=== PATIENT | female | born 1955 | race Caucasian/White ===

== ENCOUNTER → 2017-12-09 16:19 | Outpatient (CLI) | payer OTHER, SELFPAY ==
--- NOTE | 2017-12-09 16:23 | BI_ITS ---
MAMMOGRAPHY - BILATERAL SCREENING REASON FOR EXAM: Female, 62 years old. Routine annual screening examination. PERTINENT HISTORY: Non-contributory. TECHNIQUE: Digital bilateral breast ca (3D mammographic acquisition) in the CC and MLO projections. 2-D mediolateral oblique (MLO) and craniocaudad (CC) views of both breasts were obtained. CAD: Full Field Digital Mammography with Computer Added Detection was performed. COMPARISON: Comparison is made with prior study dated October 15, 2016 and September 07, 2015. FINDINGS: Breast Composition: The breasts are heterogeneously dense, which may obscure small masses. There are no dominant masses or suspicious calcifications. Stable appearance of the benign-appearing axillary lymph nodes. No other significant abnormalities are identified. There has been no significant change since the prior study. BI/SCREENING MAMM (CAD), BILAT IMPRESSION: Stable bilateral screening mammogram. Yearly follow-up mammogram recommended. (A) ASSESSMENT CATEGORY: BIRADS Category 2: Benign. A letter regarding these results will be sent to the patient by the facility within 30 days. Approximately 10% of breast cancers are not detected by mammography. A normal mammogram should not delay biopsy of a clinically suspicious abnormality. [id number] Electronically Signed: David Snyder MD at 8:51 EDT Tel [phone], Service support ,
== END ==
PROVIDERS: Family Provider Family Medicine; PCP Family Medicine; Visit Provider Family Medicine
DX: Z12.31 Encounter for screening mammogram for malignant neoplasm of breast (principal)
CPT/HCPCS: 77063; 77067

== ENCOUNTER → 2018-02-09 10:56 | Outpatient (CLI) | payer OTHER, SELFPAY ==
[2018-02-09 12:02] LABS: Absolute Lymphocyte Count 2.16 X10^3/ul (0.83-4.51); Basophil# 0.02 X10^3/uL; Basophil% 0.3 % (0-1); Eosinophil# 0.03 X10^3/uL; Eosinophils% 0.4 % (0-5); Hematocrit 42.4 % (37-47); Hemoglobin 14.4 g/dl (12.0-15.0); Lymphocyte # 2.16 X10^3/ul (4.0); Lymphocyte % 28.3 % (19-41); Mean Corpuscular Hgb 29.3 pg (27.0-32.0); Mean Corpuscular Volume 86.2 fL (81-99); Mean Platelet Vol. 9.6 fl (6.2-12.0); Monocyte# 0.47 X10^3/uL; Monocyte% 6.2 % (0-10); Neutrophil # 4.95 X10^3/uL (2.7-7.7); Neutrophil % 64.7 % (47-70); Platelet Count 288 K/mm3 (150-450); RBC Distribution Width CV 12.6 % (11.6-14.6); RBC Distribution Width SD 40.1 fl (35.1-43.9); Red Blood Count 4.92 M/mm3 (4.2-5.4); White Blood Count 7.6 K/mm3 (4.4-11.0)
[2018-02-09 12:03] LABS: POSITIVE COUNT NO; POSITIVE DIFFERENTIAL NO; POSITIVE MORPHOLOGY NO
[2018-02-09 12:36] LABS: ALB/GLOB Ratio 1.3 RATIO (0.9-2.4); AST(SGOT) 12 U/L (15-37); Alanine Aminotransfer ALT/SGPT 22 U/L (13-56); Albumin, Serum 4.3 g/dL (3.2-5.0); Alkaline Phosphatase 58 U/L (45-117); Anion Gap 9 (5-15); BUN 11 mg/dL (7-18); BUN/Creat Ratio 15.5 RATIO (10-20); Calcium,Total 9.8 mg/dL (8.5-10.1); Chloride 105 mmol/L (98-107); Creatinine, Serum 0.71 mg/dL (0.55-1.02); EST Glomerular Filtration Rate 88 mL/min (>60); Est Glom Filt Rate - Afr Amer 106 mL/min (>60); Globulin 3.4 g/dL (2.2-4.2); Glucose 100 mg/dL (74-106); Potassium 3.8 mmol/L (3.5-5.1); Protein, Total 7.7 g/dL (6.4-8.2); Sodium Level 140 mmol/L (136-145); Thyroid Stim Hormone (TSH) 0.88 uIU/mL (0.358-3.74)
== END ==
PROVIDERS: Family Provider Family Medicine; PCP Family Medicine; Visit Provider Family Medicine
DX: R00.2 Palpitations (principal)
CPT/HCPCS: 36415; 80053; 84443; 85025

== ENCOUNTER → 2018-04-07 09:44 | Outpatient (CLI) | payer OTHER, SELFPAY ==
--- NOTE | 2018-04-07 09:49 | ECHOD_ITS ---
Reason For Study: PALPITATIONS Procedure This was a 2D Doppler, Color Flow transthoracic echocardiogram. Exam performed in department. Left Ventricle Normal LV size. Left ventricular systolic function is normal. The estimated ejection fraction is 60 %. No evidence for diastolic dysfunction. No regional wall motion abnormalities noted. Right Ventricle Normal RV size. Normal systolic function. Atria Normal left atrium. Normal right atrium. No doppler evidence for ASD. Mitral Valve There is no mitral annular calcification. Normal mitral valve. Trivial mitral valve insufficiency. Tricuspid Valve Normal tricuspid valve. Trivial tricuspid valve insufficiency. Right ventricular systolic pressure estimated to be 24 mmHg. Aortic Valve Trisinus/trileaflet aortic valve. Normal aortic valve. Pulmonic Valve The pulmonic valve is not well visualized. Trivial pulmonic valve insufficiency. Great Vessels Normal sized aortic root. Pericardium/Pleural No pericardial effusion. MMode/2D Measurements & Calculations LVIDd: 3.8 cm IVSd: 0.82 cm Ao root diam: 2.8 cm LVIDs: 2.6 cm LVPWd: 0.84 cm LA dimension: 2.4 cm RVDd: 2.2 cm FS: 31.8 % LAV(MOD-bp): 27.7 ml LA A4 area: 10.6 cm2 RA A4 area: 9.1 cm2 LAV(MOD-bp) Indexed: 17.4 ml/m2 LAV(MOD-sp2): 27.5 ml LAV(MOD-sp4): 23.2 ml Doppler Measurements & Calculations MV E max iam: 93.7 cm/sec Lat Peak E' Iam: 10.9 cm/sec Med Peak E' Iam: 12.3 cm/sec MV A max iam: 70.2 cm/sec E/E' lat: 8.6 E/E' med: 7.6 MV E/A: 1.3 Ao V2 max: 134.7 cm/sec LV V1 max: 105.0 cm/sec PA V2 max: 97.6 cm/sec Ao max P.3 mmHg LV V1 max P.4 mmHg TR max iam: 229.6 cm/sec TR max P.2 mmHg Interpretation Summary Left ventricular systolic function is normal. The estimated ejection fraction is 60 %. Trivial mitral valve insufficiency. Trivial tricuspid valve insufficiency. Trivial pulmonic valve insufficiency. Right ventricular systolic pressure estimated to be 24 mmHg. No evidence for diastolic dysfunction. Ordering Physician: David Lo Referring Physician: Joelle Krishnamurthy Performed By: Jeanna Garcia RDCS, RVT
--- NOTE | 2018-04-07 09:49 | AAVD_ITS ---
Reason For Study: Pusatile abdomen Aorta Measurements Aorta Doppler Measurements Proximal aorta measures1.6 x 1.5cm. in cross- Peak systolic flow velocities within the proximal sectional axis. aorta measure 93.9 cm/sec. Proximal aorta measures1.4cm. in longitudinal Peak systolic flow velocities within the mid axis. aorta measure 102.0 cm/sec. Mid aorta measures1.2 x 1.3cm. in cross-sectionalPeak systolic flow velocities within the distal axis. aorta measure 85.7 cm/sec. Mid aorta measures1.3cm. in longitudinal axis. Distal aorta measures1.3 x 1.4cm. in cross- sectional axis. Distal aorta measures1.3cm. in longitudinal axis. Left Iliac Artery Left iliac artery measures .85 cm. in the longitudinal axis. Left iliac artery measures .85 x .83 cm. in the cross-sectional axis. Peak systolic velocity in the left iliac artery measures 116.0 cm/sec. Right Iliac Artery Right iliac artery measures .81 cm. in the longitudinal axis. Right iliac artery measures .86 x .86 cm. in the cross-sectional axis. Peak systolic velocity in the right iliac artery measures 107.0 cm/sec. Procedure Aorta IVC Iliac vasculature or bypass grafts [id number]. Exam performed in department. Interpretation Summary The dimensions of the intra-abdominal aorta appear normal, without evidence of aneurysmal dilatation. The iliac arteries also appear normal in size bilaterally. The intra-abdominal aorta and iliac arteries are patent, demonstrating normal, pulsatile arterial flow and normal peak systolic velocities. Ordering Physician: David Lo Referring Physician: David Lo Performed By: Mara Wilson RVT
--- NOTE | 2018-04-07 17:17 | STRESSREP ---
Stress Test Report Date: 04/07/2018 Procedure: Exercise tolerance test Indications: Palpitations; SVT; RFA; chest pain Consent: Per the patient Procedure: The patient exercised on a [place] protocol for 8 minutes completing Stage II and 2 minutes of Stage III achieving a peak heart rate of 173 bpm (111 % predicted maximal heart rate) with a peak blood pressure 174/76 mmHg and a peak MET capacity of approximately 9 MET's. The baseline ECG demonstrated normal sinus rhythm; PVCs. The peak exercise ECG demonstrated no obvious ECG changes. There were occasional PVCs pretest, during exercise, and recovery. The functional capacity was considered good. The patient had no complaint of chest discomfort during exercise or recovery. The examination was discontinued secondary to dyspnea. Impression: 1. Technically adequate (percent predicted maximal heart rate greater than 85%) exercise tolerance test 2. Peak exercise ECG with no obvious ECG changes 3. There were occasional PVCs pretest, during exercise, and recovery This note was generated with [employer] software. It may contain incorrect words, spelling, and punctuation that were not noted in checking the note before signing.
== END ==
PROVIDERS: Family Provider Family Medicine; PCP Family Medicine; Referring Provider Internal Medicine Cardiovascular Disease; Visit Provider Internal Medicine Cardiovascular Disease
DX: R00.2 Palpitations (principal); I49.3 Ventricular premature depolarization; I47.1 Supraventricular tachycardia; R19.8 Other specified symptoms and signs involving the digestive system and abdomen
CPT/HCPCS: 93017; 93306; 93978

== ENCOUNTER → 2018-07-21 09:40 | Outpatient (CLI) | payer MEDICARE, SELFPAY ==
[2018-07-16 10:35] VITALS: BMI 18.1
[2018-07-21 11:09] LABS: AST(SGOT) 16 U/L (15-37); Alanine Aminotransfer ALT/SGPT 23 U/L (13-56); Albumin, Serum 3.9 g/dL (3.2-5.0); Alkaline Phosphatase 64 U/L (45-117); Bilirubin, Direct 0.12 mg/dL (0.00-0.30); Cholesterol 229 mg/dL (200); Globulin 3.3 g/dL (2.2-4.2); High Density Lipoprotein 57 mg/dL; Protein, Total 7.2 g/dL (6.4-8.2); Triglycerides 115 mg/dL; Very Low Density Lipoprotein 23 mg/dL (5-40)
== END ==
PROVIDERS: Family Provider Family Medicine; PCP Family Medicine; Referring Provider Internal Medicine Cardiovascular Disease; Visit Provider Internal Medicine Cardiovascular Disease
DX: E78.5 Hyperlipidemia, unspecified (principal)
CPT/HCPCS: 36415; 80061; 80076

== ENCOUNTER 2018-12-01 09:00 | Outpatient (RCR) | payer MEDICARE, SELFPAY ==
[2018-07-16 10:35] VITALS: BMI 18.1
--- NOTE | 2018-11-18 15:25 | HP.PTEVAL_ITS ---
Patient's Visit Information DEE BRUNSON is a 63 year old F referred to Physical Therapy by LADI MARTIN with a diagnosis of L1 COMPRESSION FX. Date of Evaluation: 11/18/18 Physical Therapist: Arelis Rankin, PT, Cert MDT - Visit Plan Frequency: 2-3x /Week Duration: 4-6 Weeks Plan: POSTURE CORRECTION/STRENGTHENING, INSTRUCTION IN APPROPRIATE BODY MECHANICS AND ACTIVITY MODIFICATIONS. DLS STARTING WITH A NEUTRAL SPINE PROGRESSING ROM TOLERATED. PERLITA LE ROM, STRETCHING AND STRENGTHENING. HEP INSTRUCTION. *NO LIFTING > 5 LBS, BENDING, PUSHING, PULLING, TWISTING AND OVER HEAD EXTENSION UNTIL OK'D BY PHYSICIAN AND/OR SUPERVISING PT. 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 Disability: NO. Present sym ptoms: INTERMITTENT UPPER LUMBAR ACHING. PATIENT DENIES PERLITA UE AND LE NUMBNESS AND TINGLING. Present since: 11/14/18. Pain Scale: WORST 6/10, LEAST 0/10. Currently: 06/25. Commenced as a result of: LUNGED TO CATCH W/C WITH DAD IN IT AND FELT PAIN IN BACK. Symptoms at onset: BACK. Worse: BENDING, TWISTING, LYING DOWN IN BED. Better: HEAT, CHANGE OF POSITION. Disturbed sleep: YES. SLEEPING IN RECLINER. BED SEEMS TO SOFT. Previous history/Previous treatment: UNREMARKABLE. Coughing/sneezing/straining: POSITIVE. Gait: NORMAL. Difficulty initiating urinatin: NO. Accidents: NO. Unexplained weight loss: NO. Imaging: MRI - COMPRESSION FX L1 AND SOME ARTHRITIS. 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 PMH: CURRENTLY UNDER CARE BY GYNOCOLOGIST AND SURGERY IS TENTATIVELY SCHEDULED November TO HAVE OVERIES REMOVED BUT THIS COULD CHANGE TEST RESULTS ARE COMING IN. IRREGULAR HEART BEAT. OSTEOPOROSIS. Recent major surgery: NO. PLOF (Prior Level of Function): UNLIMITED. OTHER: SAW DR. FIGUEREDO IN [facility] AND IS SCHEDULED TO FOLLOW UP WITH HIM NEXT FRIDAY. STATES DR. FIGUEREDO GAVE HER THE CHOICE OF HAVING KYPHOPLASTY OR REST & THERAPY. SHE CHOSE THE LATTER. PHYSICAL THERAPY AT [facility] - CHECKED MOBILITY AND ISSUED BRACE. NO HOME EX'S GIVEN. - Objective Sitting/Standing Posture: FORWARD HEAD, ROUNDED SHOULDERS, INCREASED KYPHOSIS. NO TORTICOLLIS OR RELEVENT LATERAL SHIFT. Lordosis: REDUCED. Active Correction of posture: NE. Other Observations: INDEP GAIT AND TRANSFERS. PATIENT OBSERVED BENDING AND TWISTING ON THE WAY BACK TO TREATMENT ROOM AND DURING SUBJECTIVE EVAL. Motor deficit: PERLITA LE'S 4-5 WITH MMT'ING BUT I PROCEEDED CAREFULLY WITH TESTING. Sensory deficit: NO. ROM deficit: PERLITA LE'S WFL. Reflexes: GOOD - 2/3 PERLITA LE'S. Dural Signs: POSITIVE PERLITA LE'S. Lumbar mvmt loss: NT. Core strength: POOR. Palpation: TENDERNESS OF UPPER LUMBAR SPINE REGION WITH LIGHT PALPATION. BRACE - PATIENTS BACK BRACE IS SNUG AND THIS PT ADVISED ASKING SOURCE FOR LARGER ONE. PATIENT AGREEABLE. - Goals Goal 1:: DECREASE C/O BACK PAIN Goal Time Frame: 4-6 Weeks Goal 2:: IMPROVE LIFTING, SITTING, STANDING, SLEEP, AND HOMEMAKING FUNCTION Goal Time Frame: 4-6 Weeks Goal 3:: INSTRUCT IN PROPHYLAXIS Goal Time Frame: 4-6 Weeks - Rehabilitation Potential Rehabilitation Potential: Fair - Anticipated Interventions Patient/Client Instruction: Educate patient on: Condition, Plan of Care, Risk Factors, Benefits of Fitness Program For the Purpose of:: To improve self management Therapeutic Exercise to Include: Strength training, Body mechanics, Postural training, Flexibilty training, Active ROM, Scapular Strength/Stabilization For the Purpose of:: To decrease pain, To increase ROM, To improve muscle performance and motor function, To increase tolerance to activity/condition/position, To improve ability of physical actions for home/community/work/leisure Thank you for the opportunity to evaluate your patient. For Medicare and Medicare HMO plans, please review the plan of care and approve it. It will need to be FAXED BACK to us at [phone] for Medicare purposes. For Medicare only, by signing this I certify the plan of care. Please let me know if there are questions or concerns regarding this plan of care. Physician Signature: Date:
--- NOTE | 2019-01-19 14:15 | HP.PT.NRP ---
HP - Discharge Summary (1) - Patient Information DEE BRUNSON was seen in my office for initial evaluation on 11/18/18. The following Plan of Care was established for this patient: Initial Frequency: 2-3x /Week Initial Duration: 4-6 Weeks - Anticipated Interventions Patient/Client Instruction: Educate patient on: Condition, Plan of Care, Risk Factors, Benefits of Fitness Program For the Purpose of:: To improve self management Therapeutic Exercise to Include: Strength training, Body mechanics, Postural training, Flexibilty training, Active ROM, Scapular Strength/Stabilization For the Purpose of:: To decrease pain, To increase ROM, To improve muscle performance and motor function, To increase tolerance to activity/condition/position, To improve ability of physical actions for home/community/work/leisure This patient was last seen in our office . Pertinent comments regarding their Physical therapy will appear below: This patient has not returned to Physical Therapy and is appropriate to return to MD for further follow-up as needed. At this point I will be discontinuing this patient from physical therapy. I would be happy to see this patient again in the future if found appropriate by the physician. Thank you! Arelis Rankin, PT, Cert MDT
== END 2018-12-01 19:00 | disposition home or self-care (01) ==
LOC: PT 09:00
PROVIDERS: Family Provider Family Medicine; PCP Family Medicine
DX: M54.9 Dorsalgia, unspecified (principal)
CPT/HCPCS: 97110; 97162; 97530

== ENCOUNTER → 2019-01-05 | Outpatient (CLI) | payer MEDICARE, SELFPAY ==
[2018-07-16 10:35] VITALS: BMI 18.1
[2019-01-05 10:15] LABS: AST(SGOT) 16 U/L (15-37); Alanine Aminotransfer ALT/SGPT 22 U/L (13-56); Albumin, Serum 3.8 g/dL (3.2-5.0); Alkaline Phosphatase 57 U/L (45-117); Bilirubin, Direct 0.08 mg/dL (0.00-0.30); Cholesterol 229 mg/dL (200); Globulin 3.1 g/dL (2.2-4.2); High Density Lipoprotein 68 mg/dL; Protein, Total 6.9 g/dL (6.4-8.2); Triglycerides 69 mg/dL; Very Low Density Lipoprotein 14 mg/dL (5-40)
--- NOTE | 2019-01-05 11:51 | BI_ITS ---
MAMMOGRAPHY - BILATERAL SCREENING 3-D TOMOSYNTHESIS REASON FOR EXAM: Female, 64 years old. Bilateral Screening 3-D tomosynthesis PERTINENT HISTORY: No significant family history. TECHNIQUE: 2-D mammograms and 3-D Tomosynthesis of the breast (s) were performed. CAD was performed. COMPARISON: 12/09/2017 FINDINGS: The breast composition is composed of scattered fibroglandular density. Scattered benign calcifications are seen. No dense spiculated masses or suspicious microcalcifications are identified. No architectural distortion is identified. There is no skin thickening or retraction. There has been no significant change since the prior study. BI/SCREEN MAMM (CAD) W/DAVIAN BILAT IMPRESSION: No mammographic signs of malignancy. Routine yearly mammograms recommended. ASSESSMENT CATEGORY: BIRADS Category 1: Negative. A letter regarding these results will be sent to the patient by the facility within 30 days. FOLLOW UP RECOMMENDATION: Yearly follow up mammogram recommended. (A) Approximately 10% of breast cancers are not detected by mammography. A normal mammogram should not delay biopsy of a clinically suspicious abnormality. Electronically Signed: Tyler Love MD at 12:59 EDT , Service support ,
== END | disposition home or self-care (01) ==
LOC: OPBI 11:50
PROVIDERS: Internal Medicine Cardiovascular Disease; Family Provider Family Medicine; PCP Family Medicine; Referring Provider Family Medicine; Visit Provider Family Medicine
DX: Z12.31 Encounter for screening mammogram for malignant neoplasm of breast (principal); E78.5 Hyperlipidemia, unspecified
CPT/HCPCS: 36415; 77063; 77067; 80061; 80076

== ENCOUNTER 2019-02-18 09:30 | Outpatient (RCR) | payer MEDICARE, SELFPAY ==
[2019-01-12 09:54] VITALS: BMI 17.6
--- NOTE | 2019-01-29 13:20 | HP.PTEVAL_ITS ---
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 Date of Evaluation: 01/29/19 Physical Therapist: Navneet Umana, PT, Cert MDT, OCS - Visit Plan Frequency: 2x /Week Duration: 4 Weeks Plan: COMPRESSION FX L1,PATEINT HAS OSTEOPROSIS. PT INTERVENTIONS POSTUREAL EX'S,LE FLEXABLITY,DLS ABD/BACK, LE PRE'S,MOADLTIES PRN - Subjective Findings: This 84 y/o female presents to physical therapy low back pain. Patient injuried low back November 14 ,pulling w/c up ramp flexed foward felt immediate pain ,felt pop. Patient wnt to [facility] MRI showed comptresion fracture L1.Patient had osteroprosis ,thus started taking boniva. Patient was in PT for couple session ,but d/c PT to ovary surgey December 11. Patient able to reume PT. Located symmtrical lumbar . Dercibed ache/stiffness occasional stabbing pain. Aggraveting factors sitting or driving,bending ,lifting. Alleviating heat,resting. Pateint sleeping good. Denies parathesia/tingling. Bowel/bladder-. Coughing/sneeezing -.Patient pain affects ADL'S and housework . Paient symptosm affects QOL and function ,taking care of childern. SOCIAL: . VOCATION: retired - Pain Bilateral Back Pain Intensity (Out of 10): 1 Pain Intensity Range: 10 Comment: stiffness - Objective POSTURE: flat lumbar spine. PALPATION: tender paraspinals. GAIT: reciprocal pattern mild foward. NEURO: denies parathesia/tingling ,reflexes 2/3,L3-4,L4-5,L5-S1. MMT:quads/hams 4/5,hip flexion 4-/5 ,ankle 5/5. LUMBAR ROM: flexion mod loss,extension min/mod loss,side glides min loss. FLEXABLITRY: hams min tight - Special Tests L/S Slump test left side: Negative L/S Slump test right side: Negative L/S Left Straight Leg Raise: Negative L/S Right Straight Leg Raise: Negative - Goals Goal 1:: Independant with HEP Goal Time Frame: 4-6 Weeks Goal 2:: Pateint improve posture for ADL'S. Goal Time Frame: 4-6 Weeks Goal 3:: Patient to decrease LBP by 50 % > to improve function with ADL'S. Goal Time Frame: 4-6 Weeks Goal 4:: Patient to improve lumbar ROM for function of recovery Goal Time Frame: 4-6 Weeks Goal 5:: Patient to improve back owestry score by 5 points > to improve function of recovery. Goal Time Frame: 4-6 Weeks - Rehabilitation Potential Physical Therapy Diagnosis: This patient had compression fc L1 IN NOVEMBER pulling father w/c acccidently fell foward ,thus has ROM loss,strength deficits,impairs funtion and ADL'S Rehabilitation Potential: Good - Anticipated Interventions Patient/Client Instruction: Educate patient on: Condition, Plan of Care For the Purpose of:: To decrease pain, To increase ROM, To improve muscle performance and motor function, To increase tolerance to act ivity/condition/position, To improve ability of physical actions for home/community/work/leisure, To increase flexibility/ROM, To reduce risk of recurrence, To improve ability to perform tasks related to life management Therapeutic Exercise to Include: Strength training, Endurance training, Postural training, Flexibilty training, Dynamic Lumbar Stabilization For the Purpose of:: To decrease pain, To increase ROM, To improve muscle performance and motor function, To increase tolerance to activity/condition/position, To improve ability of physical actions for home/community/work/leisure, To increase flexibility/ROM, To improve ability to perform tasks related to life management TENS: Yes IF ES: Yes Cryotherapy (ice pack, ice massage): Yes Thermo therapy (hot pack): Yes For the Purpose of:: To decrease pain, To improve nutrient delivery to tissue, To increase oxygenation perfusion, To improve muscle performance and motor function, To improve health of tissue, To decrease soft tissue restriction Thank you for the opportunity to evaluate your patient. For Medicare and Medicare HMO plans, please review the plan of care and approve it. It will need to be FAXED BACK to us at [phone] for Medicare purposes. For Medicare only, by signing this I certify the plan of care. Please let me know if there are questions or concerns regarding this plan of care. Physician Signature: Date:
--- NOTE | 2019-02-18 10:02 | HP.PTDCSUM ---
HP - PT D/C Summary It has been my pleasure to treat DEE BRUNSON under orders from MEEK FIGUEREDO, for the diagnosis of AGE RELATED OSTEOPROSIS WITH PATHOLOGICAL FRACTURE VERTEBRAE,LPB for a total of 5 visit(s). Discharge Date: 02/18/19 Please see the following information for a summary of their discharge status. - Subjective Subjective: Internittant symptoms in LB. Patient playing with kids - Pain Bilateral Back Pain Intensity (Out of 10): 3 - Overall Improvement % Improvement: 50 - Objective Objective/Function: POSTURE: mild thoracic kyphosis. GAIT: reciprocal pattern. MMT: quads/hams/hip 4/5,ankle 4/5. LUMBAR ROM: flexion min loss,extension mod loss - Goals Goal 1:: Independant with HEP Goal Progress: Goal Met Goal 2:: Pateint improve posture for ADL'S. Goal Progress: Goal Met Goal 3:: Patient to decrease LBP by 50 % > to improve function with ADL'S. Goal Progress: Progressing Goal 4:: Patient to improve lumbar ROM for function of recovery Goal Progress: Progressing Goal 5:: Patient to improve back owestry score by 5 points > to improve function of recovery. Goal Progress: Goal Met - Plan Plan: D/C TO GYM AND HEP - D/C Information Discharge Comments: hep If there are questions or concerns regarding this patient's physical therapy, please feel free to call me at [phone]. Thank you for the referral of this patient. Sincerely, Navneet Umana, PT, Cert MDT, OCS
== END 2019-02-18 19:00 | disposition home or self-care (01) ==
LOC: PT 09:30
PROVIDERS: Family Provider Family Medicine; PCP Family Medicine
DX: M80.08XD Age-related osteoporosis with current pathological fracture, vertebra(e), subsequent encounter for fracture with routine healing (principal); M54.5 Low back pain
CPT/HCPCS: 97110; 97162

== ENCOUNTER → 2019-03-08 07:32 | Outpatient (CLI) | payer MEDICARE, SELFPAY ==
[2019-01-12 09:54] VITALS: BMI 17.6
[2019-03-08 09:21] LABS: AST(SGOT) 16 U/L (15-37); Alanine Aminotransfer ALT/SGPT 28 U/L (13-56); Albumin, Serum 3.9 g/dL (3.2-5.0); Alkaline Phosphatase 55 U/L (45-117); Bilirubin, Direct 0.11 mg/dL (0.00-0.30); Cholesterol 168 mg/dL (200); Globulin 3.3 g/dL (2.2-4.2); High Density Lipoprotein 70 mg/dL; Protein, Total 7.2 g/dL (6.4-8.2); Triglycerides 74 mg/dL; Very Low Density Lipoprotein 15 mg/dL (5-40)
== END ==
PROVIDERS: Family Provider Family Medicine; PCP Family Medicine; Referring Provider Physician Assistant Medical; Visit Provider Physician Assistant Medical
DX: E78.2 Mixed hyperlipidemia (principal)
CPT/HCPCS: 36415; 80061; 80076

== ENCOUNTER → 2019-06-03 08:56 | Outpatient (CLI) | payer MEDICARE, SELFPAY ==
[2019-05-31 10:49] VITALS: BMI 18.1
== END ==
PROVIDERS: Family Provider Family Medicine; PCP Family Medicine; Referring Provider Nurse Practitioner Family; Visit Provider Nurse Practitioner Family
DX: I47.1 Supraventricular tachycardia (principal); I49.3 Ventricular premature depolarization
CPT/HCPCS: 93225; 93226

== ENCOUNTER → 2020-02-02 11:01 | Outpatient (CLI) | payer MEDICARE, SELFPAY ==
[2020-01-10 10:52] VITALS: BMI 19.3
[2020-02-02 13:08] LABS: AST(SGOT) 16 U/L (15-37); Alanine Aminotransfer ALT/SGPT 25 U/L (13-56); Cholesterol 167 mg/dL (200); High Density Lipoprotein 67 mg/dL; Triglycerides 101 mg/dL; Very Low Density Lipoprotein 20 mg/dL (5-40)
== END ==
PROVIDERS: PCP Family Medicine; Referring Provider Family Medicine; Visit Provider Family Medicine
DX: E78.5 Hyperlipidemia, unspecified (principal)
CPT/HCPCS: 36415; 80061; 84450; 84460

== ENCOUNTER → 2020-02-02 13:57 | Outpatient (CLI) | payer MEDICARE, SELFPAY ==
[2020-01-10 10:52] VITALS: BMI 19.3
--- NOTE | 2020-02-02 13:59 | BI_ITS ---
MAMMOGRAPHY - BILATERAL SCREENING 3-D TOMOSYNTHESIS REASON FOR EXAM: Female, 65 years old. Annual screening mammogram. PERTINENT HISTORY: No pertinent family history. TECHNIQUE: 2-D mammograms and 3-D Tomosynthesis of the breast (s) were performed. CAD was performed. COMPARISON: 01/05/2019, 12/09/2017 FINDINGS: The breast composition is composed of scattered fibroglandular density. Scattered benign calcifications are seen. No dense spiculated masses or suspicious microcalcifications are identified. No architectural distortion is identified. There is no skin thickening or retraction. There has been no significant change since the prior study. BI/SCREEN MAMM (CAD) W/DAVIAN BILAT IMPRESSION: No mammographic signs of malignancy. Routine yearly mammograms recommended. ASSESSMENT CATEGORY: BIRADS Category 1: Negative. A letter regarding these results will be sent to the patient by the facility within 30 days. FOLLOW UP RECOMMENDATION: Yearly follow up mammogram recommended. (A) Approximately 10% of breast cancers are not detected by mammography. A normal mammogram should not delay biopsy of a clinically suspicious abnormality. Electronically Signed: Ernesto Wills MD at 17:36 EDT , Service support ,
== END ==
PROVIDERS: PCP Family Medicine; Referring Provider Family Medicine; Visit Provider Family Medicine
DX: Z12.31 Encounter for screening mammogram for malignant neoplasm of breast (principal); E78.5 Hyperlipidemia, unspecified
CPT/HCPCS: 36415; 77063; 77067; 80061; 84450; 84460

== ENCOUNTER → 2021-01-16 08:27 | Outpatient (CLI) | payer MEDICARE, SELFPAY ==
[2021-01-08 10:29] VITALS: BMI 18.3
[2021-01-16 10:11] LABS: ALB/GLOB Ratio 1.3 RATIO (0.9-2.4); AST(SGOT) 20 U/L (15-37); Alanine Aminotransfer ALT/SGPT 34 U/L (13-56); Albumin, Serum 4.2 g/dL (3.2-5.0); Alkaline Phosphatase 54 U/L (45-117); Anion Gap 3 (5-15); BUN 14 mg/dL (7-18); BUN/Creat Ratio 18.8 RATIO (10-20); Bilirubin, Direct 0.14 mg/dL (0.00-0.30); Calcium,Total 9.4 mg/dL (8.5-10.1); Chloride 106 mmol/L (98-107); Cholesterol 177 mg/dL (200); Creatinine, Serum 0.74 mg/dL (0.55-1.02); EST Glomerular Filtration Rate 83 mL/min (>60); Est Glom Filt Rate - Afr Amer 100 mL/min (>60); Globulin 3.3 g/dL (2.2-4.2); Glucose 92 mg/dL (74-106); High Density Lipoprotein 71 mg/dL; Potassium 3.8 mmol/L (3.5-5.1); Protein, Total 7.5 g/dL (6.4-8.2); Sodium Level 140 mmol/L (136-145); Triglycerides 72 mg/dL; Very Low Density Lipoprotein 14 mg/dL (5-40)
== END ==
PROVIDERS: Internal Medicine Cardiovascular Disease; PCP Family Medicine
DX: E78.00 Pure hypercholesterolemia, unspecified (principal); Z87.310 Personal history of (healed) osteoporosis fracture
CPT/HCPCS: 36415; 80053; 80061; 82248

== ENCOUNTER → 2021-04-09 13:30 | Outpatient (CLI) | payer MEDICARE, SELFPAY ==
--- NOTE | 2021-04-09 13:32 | BI_ITS ---
MAMMOGRAPHY - BILATERAL SCREENING REASON FOR EXAM: Female, 66 years old. Routine annual screening examination. PERTINENT HISTORY: Non-contributory. TECHNIQUE: Digital bilateral breast ca (3D mammographic acquisition) in the CC and MLO projections. 2-D mediolateral oblique (MLO) and craniocaudad (CC) views of both breasts were obtained. CAD: Full Field Digital Mammography with Computer Added Detection was performed. COMPARISON: Comparison is made with prior study 02/02/2020 and 01/05/2019. FINDINGS: Breast Composition: There are scattered areas of fibroglandular density. There are no dominant masses or suspicious calcifications. Stable small benign appearing bilateral axillary lymph nodes. No other significant abnormalities are identified. There has been no significant change since the prior study. BI/SCREENING MAMM (CAD), BILAT IMPRESSION: Stable bilateral screening mammogram. Yearly follow-up mammogram recommended. (A) ASSESSMENT CATEGORY: BIRADS Category 2: Benign. A letter regarding these results will be sent to the patient by the facility within 30 days. Approximately 10% of breast cancers are not detected by mammography. A normal mammogram should not delay biopsy of a clinically suspicious abnormality. [id number] Electronically Signed: David Snyder MD at 13:21 EDT , Service support ,
== END ==
PROVIDERS: PCP Family Medicine; Referring Provider Family Medicine; Visit Provider Family Medicine
DX: Z12.31 Encounter for screening mammogram for malignant neoplasm of breast (principal)
CPT/HCPCS: 77067

== ENCOUNTER → 2022-01-11 | Outpatient (CLI) | payer MEDICARE, SELFPAY ==
[2022-01-11 10:53] LABS: AST(SGOT) 19 U/L (15-37); Alanine Aminotransfer ALT/SGPT 26 U/L (13-56); Albumin, Serum 3.8 g/dL (3.2-5.0); Alkaline Phosphatase 76 U/L (45-117); Bilirubin, Direct 0.14 mg/dL (0.00-0.30); Cholesterol 150 mg/dL (200); High Density Lipoprotein 65 mg/dL; Protein, Total 6.8 g/dL (6.4-8.2); Triglycerides 63 mg/dL; Very Low Density Lipoprotein 13 mg/dL (5-40)
== END | disposition home or self-care (01) ==
LOC: LAB 09:17
PROVIDERS: PCP Family Medicine; Referring Provider Internal Medicine Cardiovascular Disease; Visit Provider Internal Medicine Cardiovascular Disease
DX: E78.2 Mixed hyperlipidemia (principal)
CPT/HCPCS: 36415; 80061; 80076

== ENCOUNTER → 2022-05-13 | Outpatient (CLI) | payer MEDICARE, SELFPAY ==
--- NOTE | 2022-05-13 14:43 | BI_ITS ---
MAMMOGRAPHY - BILATERAL SCREENING REASON FOR EXAM: Female, 67 years old. Routine annual screening examination. PERTINENT HISTORY: Non-contributory. TECHNIQUE: Digital bilateral breast davian (3D mammographic acquisition) in the CC and MLO projections. 2-D mediolateral oblique (MLO) and craniocaudad (CC) views of both breasts were obtained. CAD: Full Field Digital Mammography with Computer Added Detection was performed. COMPARISON: Comparison is made with prior examination dated 04/11/2021 and 02/02/2020. FINDINGS: Breast Composition: The breasts are heterogeneously dense, which may obscure small masses. There are no dominant masses or suspicious calcifications. No other significant abnormalities are identified. There has been no significant change since the prior study. BI/SCRN MAMM (CAD)W/DAVIAN BILAT IMPRESSION: Stable bilateral screening mammogram. Yearly follow-up mammogram recommended. (A) ASSESSMENT CATEGORY: BIRADS Category 1: Negative. A letter regarding these results will be sent to the patient by the facility within 30 days. Approximately 10% of breast cancers are not detected by mammography. A normal mammogram should not delay biopsy of a clinically suspicious abnormality. [id number] Electronically Signed: David Snyder MD at 15:23 EST ,
== END | disposition home or self-care (01) ==
LOC: OPBI 14:42
PROVIDERS: PCP Family Medicine; Referring Provider Family Medicine; Visit Provider Family Medicine
DX: Z12.31 Encounter for screening mammogram for malignant neoplasm of breast (principal)
CPT/HCPCS: 77063; 77067

== ENCOUNTER → 2022-07-01 | Outpatient (CLI) | payer MEDICARE, SELFPAY ==
[2022-07-01 15:15] LABS: Absolute Lymphocyte Count 1.69 X10^3/uL (0.83-4.51); Absolute Neutrophil Count 4.7 X10^3/uL (2.0-7.7); Basophil# 0.03 X10^3/uL; Basophil% 0.4 % (0-1); Eosinophil# 0.02 X10^3/uL; Eosinophils% 0.3 % (0-5); Hematocrit 40.5 % (37-47); Hemoglobin 13.2 g/dL (12.0-15.0); Lymphocyte # 1.69 X10^3/ul (0.83-4.51); Lymphocyte % 24.9 % (19-41); Mean Corp Hgb Conc 32.6 g/dL (32-36); Mean Corpuscular Hgb 28.6 pg (27.0-32.0); Mean Corpuscular Volume 87.7 fL (81-99); Mean Platelet Vol. 9.7 fl (6.2-12.0); Monocyte# 0.35 X10^3/uL; Monocyte% 5.1 % (0-10); NRBC Flagged by Analyzer 0 % (0-5); Neutrophil # 4.69 X10^3/uL (2.7-7.7); Platelet Count 318 K/mm3 (150-450); RBC Distribution Width CV 12.3 % (11.6-14.6); RBC Distribution Width SD 39.4 fl (35.1-43.9); Red Blood Count 4.62 M/mm3 (4.2-5.4); White Blood Count 6.8 K/mm3 (4.4-11.0)
[2022-07-01 15:42] LABS: Anion Gap 11 (5-15); BUN 12 mg/dL (7-18); BUN/Creat Ratio 16.4 RATIO (10-20); Calcium,Total 9.4 mg/dL (8.5-10.1); Chloride 104 mmol/L (98-107); Creatinine, Serum 0.73 mg/dL (0.55-1.02); EST Glomerular Filtration Rate 84 mL/min (>60); Est Glom Filt Rate - Afr Amer 101 mL/min (>60); Glucose 97 mg/dL (74-106); Potassium 4.3 mmol/L (3.5-5.1); Sodium Level 141 mmol/L (136-145); Thyroid Stim Hormone (TSH) 1.27 uIU/mL (0.358-3.74)
== END | disposition home or self-care (01) ==
LOC: MFPLAB 11:57
PROVIDERS: PCP Family Medicine; Visit Provider Family Medicine
DX: R63.4 Abnormal weight loss (principal)
CPT/HCPCS: 36415; 80048; 84443; 85025

== ENCOUNTER → 2022-07-29 | Outpatient (CLI) | payer MEDICARE, SELFPAY ==
[2022-07-29 09:27] LABS: AST(SGOT) 15 U/L (15-37); Alanine Aminotransfer ALT/SGPT 21 U/L (13-56); Alkaline Phosphatase 66 U/L (45-117); Bilirubin, Direct 0.12 mg/dL (0.00-0.30); Cholesterol 158 mg/dL (200); Globulin 3.1 g/dL (2.2-4.2); High Density Lipoprotein 76 mg/dL; Protein, Total 7.1 g/dL (6.4-8.2); Triglycerides 64 mg/dL; Very Low Density Lipoprotein 13 mg/dL (5-40)
== END | disposition home or self-care (01) ==
LOC: LAB 08:19
PROVIDERS: PCP Family Medicine; Referring Provider Internal Medicine Cardiovascular Disease; Visit Provider Internal Medicine Cardiovascular Disease
DX: E78.2 Mixed hyperlipidemia (principal)
CPT/HCPCS: 36415; 80061; 80076

== ENCOUNTER → 2022-12-06 | Outpatient (CLI) | payer MEDICARE, SELFPAY ==
[2022-12-06 16:11] LABS: Vitamin D,25 Hydroxy 76.3 ng/mL
[2022-12-06 16:35] LABS: ALB/GLOB Ratio 1.3 RATIO (0.9-2.4); AST(SGOT) 17 U/L (15-37); Alanine Aminotransfer ALT/SGPT 25 U/L (13-56); Albumin, Serum 3.8 g/dL (3.2-5.0); Alkaline Phosphatase 70 U/L (45-117); Anion Gap 5 (5-15); BUN 17 mg/dL (7-18); BUN/Creat Ratio 23.4 RATIO (10-20); Calcium,Total 8.9 mg/dL (8.5-10.1); Chloride 109 mmol/L (98-107); Creatinine, Serum 0.73 mg/dL (0.55-1.02); EST Glomerular Filtration Rate 84 mL/min (>60); Est Glom Filt Rate - Afr Amer 102 mL/min (>60); Globulin 2.9 g/dL (2.2-4.2); Glucose 96 mg/dL (74-106); Potassium 3.9 mmol/L (3.5-5.1); Protein, Total 6.7 g/dL (6.4-8.2); Sodium Level 143 mmol/L (136-145)
== END | disposition home or self-care (01) ==
LOC: LAB 14:06
PROVIDERS: PCP Family Medicine; Referring Provider Internal Medicine Endocrinology, Diabetes & Metabolism; Visit Provider Internal Medicine Endocrinology, Diabetes & Metabolism
DX: E55.9 Vitamin D deficiency, unspecified (principal); M81.0 Age-related osteoporosis without current pathological fracture
CPT/HCPCS: 36415; 80053; 82306

== ENCOUNTER 2023-04-07 13:39 | Outpatient (CLI) | payer MEDICARE, SELFPAY ==
[2023-04-07 14:01] VITALS: BP 130/51; PULSE 73; RESP 16; TEMP 36.2; O2SAT 99; BMI 17.2
[2023-04-07] MEDS: DENOSUMAB 60 MG/ML SC (14:06)
== END 2023-04-07 13:40 | disposition home or self-care (01) ==
LOC: MEDOUTP 13:40
PROVIDERS: PCP Family Medicine; Referring Provider Internal Medicine Endocrinology, Diabetes & Metabolism; Visit Provider Internal Medicine Endocrinology, Diabetes & Metabolism
DX: M81.0 Age-related osteoporosis without current pathological fracture (principal)
CPT/HCPCS: 96372; J0897

== ENCOUNTER → 2023-05-01 | Outpatient (CLI) | payer MEDICARE, SELFPAY ==
[2023-05-01 08:45] LABS: AST(SGOT) 12 U/L (15-37); Alanine Aminotransfer ALT/SGPT 16 U/L (13-56); Albumin, Serum 3.6 g/dL (3.2-5.0); Alkaline Phosphatase 65 U/L (45-117); Bilirubin, Direct 0.11 mg/dL (0.00-0.30); Cholesterol 147 mg/dL (200); Globulin 3.2 g/dL (2.2-4.2); High Density Lipoprotein 68 mg/dL; Protein, Total 6.8 g/dL (6.4-8.2); Triglycerides 67 mg/dL; Very Low Density Lipoprotein 13 mg/dL (5-40)
== END | disposition home or self-care (01) ==
LOC: LAB 07:41
PROVIDERS: PCP Family Medicine; Referring Provider Nurse Practitioner Family; Visit Provider Nurse Practitioner Family
DX: E78.2 Mixed hyperlipidemia (principal)
CPT/HCPCS: 36415; 80061; 80076

== ENCOUNTER → 2023-05-26 | Outpatient (CLI) | payer MEDICARE, SELFPAY ==
--- NOTE | 2023-05-26 10:22 | RAD_ITS ---
STUDY: X-RAY CHEST REASON FOR EXAM: Female, 68 years old. Cough and left chest pain. TECHNIQUE: Frontal and lateral views of the chest. COMPARISON: None. FINDINGS: Marked hyperinflation. Scarring at the left base. Scattered healed parenchymal granulomatous calcifications. There is no demonstrated pleural abnormality. Normal size heart. Normal mediastinum and phillip. Normal visualized pulmonary arteries. Aortic tortuosity. Normal visualized thoracic spine. Normal visualized ribs, clavicles, and shoulders. No abnormality of the visualized soft tissue structures of the upper abdomen. RAD/Chest PA and Lateral IMPRESSION: Hyperinflation with no acute or active cardiopulmonary disease. Electronically Signed: Ernesto Wills MD at 12:43 EST ,
== END | disposition home or self-care (01) ==
LOC: MTRAD 10:20
PROVIDERS: PCP Family Medicine; Referring Provider Family Medicine; Visit Provider Family Medicine
DX: U07.1 COVID-19 (principal); R05.9 Cough, unspecified; R07.9 Chest pain, unspecified
CPT/HCPCS: 71046

== ENCOUNTER → 2023-06-23 | Outpatient (CLI) | payer MEDICARE, SELFPAY ==
--- NOTE | 2023-06-23 14:36 | BI_ITS ---
MAMMOGRAPHY - BILATERAL SCREENING REASON FOR EXAM: Female, 68 years old. Routine annual screening examination. PERTINENT HISTORY: Non-contributory. TECHNIQUE: Digital bilateral breast davian (3D mammographic acquisition) in the CC and MLO projections. 2-D mediolateral oblique (MLO) and craniocaudad (CC) views of both breasts were obtained. CAD: Full Field Digital Mammography with Computer Added Detection was performed. COMPARISON: Comparison is made with prior study dated number 02/02/2022 and April 09, 2021. FINDINGS: Breast Composition: The breasts are heterogeneously dense, which may obscure small masses. There are no dominant masses or suspicious calcifications. No other significant abnormalities are identified. There has been no significant change since the prior study. BI/SCRN MAMM (CAD)W/DAVIAN BILAT IMPRESSION: Stable bilateral screening mammogram. Yearly follow-up mammogram recommended. (A) ASSESSMENT CATEGORY: BIRADS Category 1: Negative. A letter regarding these results will be sent to the patient by the facility within 30 days. Approximately 10% of breast cancers are not detected by mammography. A normal mammogram should not delay biopsy of a clinically suspicious abnormality. [id number] Electronically Signed: David Snyder MD at 9:25 EST ,
--- OUTSIDE RECORDS SUMMARY | 2023-06-23 15:57 | XMS RPT_ITS | CCD ---
Author Name Unknown Address [address] [place] [address] Organization [facility] Results Test Name Value Interpretation Reference Range Facil ity Progress note 03-29-2021 Note Date & Type Note Facility 03-29-2021 Note HNO ID: [id number] Author: Ron Romero MD Service: ? Author Type: Physician Type: Progress Notes Filed: 03/29/2021 8:34 PM Note Text: PRIMARY CARE PHYSICIAN: Joelle Krishnamurthy MD ([facility]) [address] [place] [address] REFERRING PHYSICIAN: David Lo MD ([facility]) [address] [facility] [id number] Patient Care Team: Joelle Krishnamurthy as PCP - General David Lo as Specialty White Hat Hacker (Cardiology) Marisela Garvey MD as Specialty White Hat Hacker (Endocrinology) CHIEF COMPLAINT: Evaluation of arrhythmia HISTORY OF PRESENT ILLNESS: Ms. Brunson is a 66 year old female who presents today with her for evaluation of arrhythmia. She has a prior history of supraventricular tachycardia (SVT) and underwent successful catheter ablation in 1998 at [facility]. Those records are not available and she does not recall the type of SVT that was ablated. However she states that she has not really had any significant recurrence of that type of arrhythmia since that procedure. However, she has experienced irregular heartbeats for the past couple years. She recalls being treated with metoprolol in about 2017 which she considered to be initially somewhat helpful, with reduction in her symptoms. However the symptoms worsened and in December 2020 the dose of metoprolol was increased but she did not experience improvement. Most recently, the metoprolol was discontinued and treatment with a calcium channel maritza (diltiazem) was initiated. She has only been taking the diltiazem for about 2 days. She experiences the symptoms more so at night, rather than during the day. She also seems to notice the palpitations or skipped beats when there is more heat or humidity, when she is under more stress, and also probably when she has caffeinated beverages. Cardiac monitoring has revealed premature ventricular contractions (PVCs). She presents now for evaluation. I have confirmed and edited as necessary, the PFSH and ROS obtained by others. PAST MEDICAL HISTORY Diagnosis Date - Benign neoplasm of rectum and anal canal - Heart palpitations - Mixed hyperlipidemia - Osteoporosis - Palpitations - Premature ventricular contractions (PVCs) (VPCs) - Status post radiofrequency ablation (RFA) operation for arrhythmia RF catheter ablation for SVT in 11/1998 - SVT (supraventricular tachycardia) (HCC) PAST SURGICAL HISTORY Procedure Laterality Date - APPENDECTOMY - COLONOSCOP W/ OR W/O [facility] SPEC 12/10/2005 Colonoscopy - COLONOSCOP W/ OR W/O [facility] SPEC 10/04/2011 Colonoscopy - COLONOSCOPY 2017 - D+C 1984 Irregular periods - EPS: SVT ABLATION 11/24/1998 catheter ablation for SVT, likely RF catheter ablation; [facility] SOCIAL HISTORY Social History Tobacco Use - Smoking status: Never Smoker - Smokeless tobacco: Never Used Substance Use Topics - Alcohol use: No - Drug use: Not Currently FAMILY HISTORY Problem Relation Age of Onset - Colon Cancer Father - Diabetes Sister - Osteoporosis Mother - other (hypercholestryamine) Mother - other (testicular cancer) Son ALLERGIES: ALLERGIES No Known Allergies MEDICATIONS: atorvastatin (LIPITOR) 10 mg tablet, Take 10 mg by mouth once daily. dilTIAZem CD (CARDIZEM CD, CARTIA XT) 120 mg 24 hr capsule, Take 1 capsule by mouth once daily. teriparatide (FORTEO) 20 mcg/dose (620mcg/2.48mL) subcutaneous injection, Inject 20 mcg subcutaneously once daily. Cholecalciferol, Vitamin D3, (VITAMIN D-3) 2,000 unit cap, Take 1 capsule by mouth twice daily. calcium citrate-vitamin D3 (CALCIUM CITRATE +) 315-200 mg-unit ORAL Tab, Take 1 tablet by mouth twice daily with meals. ASPIRIN 81 MG TAB, Take one (1) tablet daily . PRESERVISION AREDS CAP, Take 1 capsule by mouth once daily. REVIEW OF SYSTEMS: Review of Systems Constitutional: Negative for chills and fever. Respiratory: Negative for shortness of breath. Cardiovascular: Positive for palpitations. Negative for chest pain, orthopnea, leg swelling and PND. Gastrointestinal: Negative for abdominal pain, nausea and vomiting. Neurological: Negative for dizziness and loss of consciousness. All other systems reviewed and are negative. PHYSICAL EXAMINATION: BP 120/74 Pulse 84 Ht 5' 7 (1.70m) Wt 112 lb (50.8kg) SpO2 98% BMI 17.54 kg/(m2). Physical Exam Vitals reviewed. Constitutional: General: She is not in acute distress. HENT: Head: Normocephalic and atraumatic. Cardiovascular: Rate and Rhythm: Normal rate and regular rhythm. Heart sounds: Normal heart sounds, S1 normal and S2 normal. No murmur heard. No friction rub. Pulmonary: Effort: Pulmonary effort is normal. No respiratory distress. Breath sounds: Normal breath sounds. No wheezing, rhonchi or rales. Musculoskeletal: Cervical back: Neck supple. Right lower leg: No edema. Left lower leg: No edema. Sk (more content not included)... [facility] Summary Purpose Family History No Family History Records FoundNo Family History Records FoundNo Family History Records Found Advance Directives No Advanced Directives Records FoundNo Advanced Directives Records FoundNo Advanced Directives Records Found Additional Source Comments INFORMATION SOURCE (unrecogn ized section and content) DATE CREATED AUTHOR AUTHOR'S ORGANIZ ATION 12/10/2018 [facility] DATE CREATED AUTHOR AUTHOR'S ORGANIZ ATION 03/30/2021 [facility] FOR RECORDS PERTAINING TO PATIENTS WHO ARE OR HAVE BEEN ENROLLED IN A CHEMICAL DEPENDENCY/SUBSTANCEABUSE PROGRAM, SOME INFORMATION MAY BE OMITTED. This clinical summary was aggregated from multiple sources. Caution should be exercised in using it in the provision of clinical care. This summary normalizes information from multiple sources, and as a consequence, information in this document may materially change the coding, format and clinical context of patient data. In addition, data may be omitted in some cases. CLINICAL DECISIONS SHOULD BE BASED ON THE PRIMARY CLINICAL RECORDS. [facility] [employer] [facility]. provides no warranty or guarantee of the accuracy or completeness of information in this document.
== END | disposition home or self-care (01) ==
PROVIDERS: PCP Family Medicine; Referring Provider Family Medicine; Visit Provider Family Medicine
DX: Z12.31 Encounter for screening mammogram for malignant neoplasm of breast (principal)
CPT/HCPCS: 77063; 77067

== ENCOUNTER → 2023-07-24 | Outpatient (CLI) | payer MEDICARE, SELFPAY ==
--- NOTE | 2023-07-24 08:51 | ECHOD_ITS ---
Reason For Study: SVT Procedure This was a 2D Doppler, Color Flow transthoracic echocardiogram. Exam performed in department. Left Ventricle Normal size and thickness. The left ventricular ejection fraction is 65 %. Normal diastology for age. Right Ventricle Normal right ventricle. Atria The left and right atria are normal. Mitral Valve Mild mitral annular calcification. Tricuspid Valve Trivial tricuspid valve insufficiency. Normal pulmonary artery pressure. Aortic Valve Trisinus/trileaflet aortic valve. Pulmonic Valve The pulmonic valve is not well visualized. Mild (1+) pulmonic valve insufficiency. Great Vessels The aortic root is not well visualized. Pericardium/Pleural No pericardial effusion. MMode/2D Measurements & Calculations LVIDd: 4.2 cm IVSd: 0.58 cm Ao root diam: 2.8 cm LVIDs: 2.4 cm LVPWd: 0.68 cm RVDd: 2.5 cm FS: 42.5 % LAV(MOD-bp): 40.5 ml LVAd ap4: 22.8 cm2 LVAd ap2: 22.3 cm2 LAV(MOD-bp) Indexed: 26.0 ml/m2 LVLd ap4: 7.5 cm LVLd ap2: 8.2 cm LAV(MOD-sp2): 37.4 ml EDV(MOD-sp4): 58.8 ml EDV(MOD-sp2): 51.9 ml LAV(MOD-sp4): 40.4 ml EDV(sp4-el): 58.8 ml EDV(sp2-el): 51.4 ml LVAs ap4: 11.2 cm2 LVAs ap2: 10.8 cm2 LVLs ap4: 6.2 cm LVLs ap2: 6.7 cm ESV(MOD-sp4): 17.6 ml ESV(MOD-sp2): 15.0 ml ESV(sp4-el): 17.1 ml ESV(sp2-el): 14.8 ml EF(MOD-sp4): 70.0 % EF(MOD-sp2): 71.1 % EF(sp4-el): 71.0 % SV(MOD-sp4): 41.2 ml SV(MOD-sp2): 36.9 ml SV(sp4-el): 41.7 ml LA dimension(2D): 3.0 cm LA A4 area: 15.5 cm2 RA A4 area: 8.2 cm2 TAPSE: 1.9 cm Time Measurements MV dec time: 0.19 sec Doppler Measurements & Calculations MV E max iam: 89.3 cm/sec Lat Peak E' Iam: 14.7 cm/sec Med Peak E' Iam: 15.6 cm/sec MV A max iam: 54.2 cm/sec E/E' lat: 6.1 E/E' med: 5.7 MV E/A: 1.6 MV V2 max: 100.0 cm/sec MV P1/2t max iam: 98.2 cm/sec Ao V2 max: 153.4 cm/sec MV max P.0 mmHg MV P1/2t: 78.1 msec Ao max P.4 mmHg MV V2 mean: 46.7 cm/sec MV dec slope: 368.4 cm/sec2 Ao V2 mean: 102.8 cm/sec MV mean P.1 mmHg Ao mean P.8 mmHg MV V2 VTI: 25.5 cm MVA(P1/2t): 2.8 cm2 Ao V2 VTI: 34.4 cm AV (velocity ratio): 0.79 LV V1 max: 115.2 cm/sec PA V2 max: 126.0 cm/sec PI dec slope: 127.6 cm/sec2 LV V1 max P.3 mmHg PA V2 mean: 94.0 cm/sec LV V1 mean P.1 mmHg LV V1 mean: 84.2 cm/sec LV V1 VTI: 27.2 cm TR max iam: 194.8 cm/sec TR max P.2 mmHg ECHO/Echo Complete Interpretation Summary The left ventricular ejection fraction is 65 %. Mild mitral annular calcification. Mild (1+) pulmonic valve insufficiency. Ordering Physician: Maycol Leal Referring Physician: Joelle Krishnamurthy Performed By: Jeanna Garcia RDCS, RVT
== END | disposition home or self-care (01) ==
LOC: CVS 08:50
PROVIDERS: PCP Family Medicine; Referring Provider Internal Medicine Cardiovascular Disease; Visit Provider Internal Medicine Cardiovascular Disease
DX: I47.10 Supraventricular tachycardia, unspecified (principal); I08.1 Rheumatic disorders of both mitral and tricuspid valves
CPT/HCPCS: 93306

== ENCOUNTER → 2023-08-11 | Outpatient (CLI) | payer MEDICARE, SELFPAY ==
--- OUTSIDE RECORDS SUMMARY | 2023-08-11 08:47 | XMS RPT_ITS | CCD ---
Author Name Unknown Address [address] [place] [address] Organization [facility] Results Test Name Value Interpretation Reference Range Facil ity Progress note 03-29-2021 Note Date & Type Note Facility 03-29-2021 Note HNO ID: [id number] Author: Ron Romero MD Service: ? Author Type: Physician Type: Progress Notes Filed: 03/29/2021 8:34 PM Note Text: PRIMARY CARE PHYSICIAN: Joelle Krishnamurthy MD ([facility]) [address] [place] [address] REFERRING PHYSICIAN: David Lo MD ([facility]) [address] [facility] [id number] Patient Care Team: Joelle Krishnamurthy as PCP - General David Lo as Specialty Flyer Maker (Cardiology) Marisela Garvey MD as Specialty Flyer Maker (Endocrinology) CHIEF COMPLAINT: Evaluation of arrhythmia HISTORY OF PRESENT ILLNESS: Ms. Brunson is a 66 year old female who presents today with her for evaluation of arrhythmia. She has a prior history of supraventricular tachycardia (SVT) and underwent successful catheter ablation in 1998 at [facility]. Those records are not available and [...] - APPENDECTOMY - COLONOSCOP W/ OR W/O [facility] SPEC 12/10/2005 Colonoscopy - COLONOSCOP W/ OR W/O [facility] SPEC 10/04/2011 Colonoscopy - COLONOSCOPY 2017 - D+C 1984 Irregular periods - EPS: SVT ABLATION 11/24/1998 catheter ablation for SVT, likely RF catheter ablation; [facility] SOCIAL HISTORY Social History Tobacco Use [...] No edema. Sk (more content not included)... [facility] Summary Purpose Family History No Family History Records FoundNo Family History Records FoundNo Family History Records Found Advance Directives No Advanced Directives Records FoundNo Advanced Directives Records FoundNo Advanced Directives Records Found Additional Source Comments INFORMATION SOURCE (unrecogn ized section and content) DATE CREATED AUTHOR AUTHOR'S ORGANIZ ATION 12/10/2018 [facility] DATE CREATED AUTHOR AUTHOR'S ORGANIZ ATION 03/30/2021 [facility] FOR RECORDS PERTAINING TO PATIENTS WHO ARE [...] BE BASED ON THE PRIMARY CLINICAL RECORDS. [facility] [employer] [facility]. provides no warranty or guarantee of the accuracy or completeness of information in this document.
== END | disposition home or self-care (01) ==
LOC: PSN 08:24
PROVIDERS: PCP Family Medicine; Referring Provider Internal Medicine Cardiovascular Disease; Visit Provider Internal Medicine Cardiovascular Disease
DX: R00.2 Palpitations (principal); I47.10 Supraventricular tachycardia, unspecified
CPT/HCPCS: 93225; 93226

== ENCOUNTER → 2023-11-11 | Outpatient (CLI) | payer MEDICARE, SELFPAY ==
[2023-11-11 09:11] LABS: AST(SGOT) 17 U/L (15-37); Alanine Aminotransfer ALT/SGPT 20 U/L (13-56); Albumin, Serum 3.7 g/dL (3.2-5.0); Alkaline Phosphatase 46 U/L (45-117); Bilirubin, Direct 0.13 mg/dL (0.00-0.30); Cholesterol 170 mg/dL (200); Globulin 3.1 g/dL (2.2-4.2); High Density Lipoprotein 80 mg/dL; Protein, Total 6.8 g/dL (6.4-8.2); Triglycerides 57 mg/dL; Very Low Density Lipoprotein 11 mg/dL (5-40)
== END | disposition home or self-care (01) ==
LOC: LAB 07:14
PROVIDERS: PCP Family Medicine; Referring Provider Nurse Practitioner Family; Visit Provider Nurse Practitioner Family
DX: E78.2 Mixed hyperlipidemia (principal)
CPT/HCPCS: 36415; 80061; 80076

== ENCOUNTER → 2023-12-08 | Outpatient (CLI) | payer MEDICARE, SELFPAY ==
[2023-12-08 09:45] LABS: ALB/GLOB Ratio 1.2 RATIO (0.9-2.4); AST(SGOT) 18 U/L (15-37); Alanine Aminotransfer ALT/SGPT 20 U/L (13-56); Albumin, Serum 3.7 g/dL (3.2-5.0); Alkaline Phosphatase 46 U/L (45-117); Anion Gap 5 (5-15); BUN 15 mg/dL (7-18); Calcium,Total 9.3 mg/dL (8.5-10.1); Chloride 108 mmol/L (98-107); Creatinine, Serum 0.79 mg/dL (0.55-1.02); EST Glomerular Filtration Rate 77 mL/min (>60); Est Glom Filt Rate - Afr Amer 93 mL/min (>60); Globulin 3.1 g/dL (2.2-4.2); Glucose 98 mg/dL (74-106); Potassium 4.1 mmol/L (3.5-5.1); Protein, Total 6.8 g/dL (6.4-8.2); Sodium Level 139 mmol/L (136-145); Thyroid Stim Hormone (TSH) 1.46 uIU/mL (0.358-3.74)
== END | disposition home or self-care (01) ==
PROVIDERS: PCP Family Medicine; Referring Provider Internal Medicine Endocrinology, Diabetes & Metabolism; Visit Provider Internal Medicine Endocrinology, Diabetes & Metabolism
DX: M81.0 Age-related osteoporosis without current pathological fracture (principal); R00.2 Palpitations; E55.9 Vitamin D deficiency, unspecified
CPT/HCPCS: 36415; 80053; 82306; 84443

== ENCOUNTER → 2024-06-02 | Outpatient (CLI) | payer MEDICARE, SELFPAY ==
[2024-06-02 08:56] LABS: AST(SGOT) 12 U/L (15-37); Alanine Aminotransfer ALT/SGPT 15 U/L (13-56); Albumin, Serum 3.7 g/dL (3.2-5.0); Alkaline Phosphatase 58 U/L (45-117); Bilirubin, Direct 0.12 mg/dL (0.00-0.30); Cholesterol 161 mg/dL (200); Globulin 3.5 g/dL (2.2-4.2); High Density Lipoprotein 81 mg/dL; Protein, Total 7.2 g/dL (6.4-8.2); Triglycerides 50 mg/dL; Very Low Density Lipoprotein 10 mg/dL (5-40)
== END | disposition home or self-care (01) ==
LOC: LAB 07:36
PROVIDERS: PCP Family Medicine; Referring Provider Internal Medicine Cardiovascular Disease; Visit Provider Internal Medicine Cardiovascular Disease
DX: E78.2 Mixed hyperlipidemia (principal)
CPT/HCPCS: 36415; 80061; 80076

== ENCOUNTER → 2024-06-25 | Outpatient (CLI) | payer MEDICARE, SELFPAY ==
--- NOTE | 2024-06-25 09:09 | BI_ITS ---
MAMMOGRAPHY - BILATERAL SCREENING REASON FOR EXAM: Female, 69 years old. Routine annual screening examination. PERTINENT HISTORY: Non-contributory. TECHNIQUE: Digital bilateral breast davian (3D mammographic acquisition) in the CC and MLO projections. 2-D mediolateral oblique (MLO) and craniocaudad (CC) views of both breasts were obtained. CAD: Full Field Digital Mammography with Computer Added Detection was performed. COMPARISON: Comparison is made with prior study dated June 2023 and May 13, 2022 FINDINGS: Breast Composition: The breasts are heterogeneously dense, which may obscure small masses. There are no dominant masses or suspicious calcifications. No other significant abnormalities are identified. There has been no significant change since the prior study. BI/SCRN MAMM (CAD)W/DAVIAN BILAT IMPRESSION: Stable bilateral screening mammogram. Yearly follow-up mammogram recommended. (A) ASSESSMENT CATEGORY: BIRADS Category 1: Negative. A letter regarding these results will be sent to the patient by the facility within 30 days. Approximately 10% of breast cancers are not detected by mammography. A normal mammogram should not delay biopsy of a clinically suspicious abnormality. [id number] Electronically Signed: David Snyder MD at 9:51 EST ,
== END | disposition home or self-care (01) ==
PROVIDERS: PCP Family Medicine; Referring Provider Family Medicine; Visit Provider Family Medicine
DX: Z12.31 Encounter for screening mammogram for malignant neoplasm of breast (principal)
CPT/HCPCS: 77063; 77067

== ENCOUNTER → 2024-12-01 | Outpatient (CLI) | payer MEDICARE, SELFPAY ==
--- OUTSIDE RECORDS SUMMARY | 2024-12-01 07:35 | XMS RPT_ITS | CCD ---
Author Organization [facility] CliniSyga Care Team Providers Care Electronic Resources Librarian Name Role Phone Dr. Joelle Krishnamurthy Primary Care Provider [phone] Joelle Krishnamurthy Referring Provider 1([facility])[phone] CINDY Simon Attending Provider 1([facility])[phone] Dr. David Lo Attending Provider 1([facility])[phone] Dr. Joelle Krishnamurthy Primary Care Provider 1([facility])[phone] Joelle Krishnamurthy Referring Provider 1([facility])[phone] David Lo Attending Provider 1([facility])[phone] Joelle Krishnamurthy Primary Care Provider 1([facility])[phone] Joelle Krishnamurthy Referring Provider 1([facility])[phone] Sal Alexis Attending Provider 1([facility])[phone] Dr. Joelle Krishnamurthy Primary Care Provider 1([facility])[phone] Joelle Krishnamurthy Referring Provider 1([facility])[phone] CINDY Ramirez Attending Provider 1([facility])[phone] Maycol Leal Attending Provider 1([facility])[phone] Yee Cavazos Attending Provider 1([facility])[phone] Zachariah HYDE, JENISE Lai Attending Provider Dr. Joelle Krishnamurthy Primary Care Provider 1([facility])[phone] Joelle Krishnamurthy Referring Provider [phone] Joelle Krishnamurthy Referring Unavailable Joelle Krishnamurthy Primary Care Unavailable Sal Alexis Attending Unavailable Joelle Krishnamurthy Primary Care Unavailable Joelle Krishnamurthy Referring Unavailable Sal Alexis Attending Unavailable Joelle Krishnamurthy Referring Unavailable Sal Alexis Attending Unavailable Jolliff, Joelle S Primary Care Unavailable Padmini Hairston Attending Unavail able Jolliff, Joelle S Referring Unavailable Jolliff, Joelle S Referring Unavailable Jolliff, Joelle S Primary Care Unavailable Sal Alexis Attending Unavailable Jolliff, Joelle S Referring Unavailable Jolliff, Joelle S Primary Care Unavailable Xavier BIOANALYST, Walter Mazariegos Attending Unavailable Maycol Leal Consulting Unavailable Jolliff, Joelle S Primary Care Unavailable Roof BIOANALYST, Walter Mazariegos Attending Unavailable [facility] BIOANALYST, Walter Mazariegos Referring Unavailable Sal Alexis Referring Unavailable Jolliff, Joelle S Primary Care Unavailable Sal Alexis Attending Unavailable Maycol Leal Attending Unavailable Maycol Leal Referring Unavailable Jolliff, Joelle S Primary Care Unavailable Jolliff, Joelle S Attending Unavailable Jolliff, Joelle S Referring Unavailable Jolliff, Joelle S Primary Care Unavailable Medications Current Medications Medication Drug Class(es) Dates Sig (Normalized) Sig (Original) apixaban 5 mg oral tablet (2 sources) Factor Xa Inhibitor Start: 08-01-2023 End: 08-12-2023 take 1 tablet by mouth twice daily Apixaban (Eliquis) 5 mg tablet Active 5 MG PO TWICE A DAY August 12, 2023 10:03am calcium citrate 1500 mg / cholecalciferol 200 unt oral tablet (20 sources) Vitamin D Start: 03-26-2018 take 1 tablet by mouth once daily Calcium Citrate-Vitamin D3 (Calcium Citrate + D) 315-200 mg-unit tablet Active 1 TABLET PO DAILY March 25, 2018 11:00pm Start: 03-25-2018 End: 03-26-2018 take 1 tablet by mouth once daily Calcium Citrate-Vitamin D3 Discontinued 1 TABLET PO DAILY March 24, 2018 11:00pm March 26, 2018 2:04pm cholecalciferol 0.05 mg oral capsule (11 sources) Vitamin D Start: 01-10-2020 take 50 ug by mouth once daily Cholecalciferol (Vitamin D3) Active 50 MCG PO DAILY January 09, 2020 11:00pm 1 ml denosumab 60 mg/ml prefilled syringe (6 sources) RANK Ligand Inhibitor Start: 02-27-2023 Denosumab (Prolia) 60 mg/mL syringe Active 60 MG SC every 6 months February 26, 2023 11:00pm 24 hr dilTIAZem hydrochloride 120 mg extended release oral capsule (20 sources) Calcium Channel Stephenie Start: 08-01-2023 take 120 mg by mouth once daily Diltiazem Hcl Active 120 MG PO DAILY August 01, 2023 12:00am Start: 03-26-2021 End: 07-28-2023 take 120 mg by mouth once daily Diltiazem Hcl Discontinued 120 MG PO DAILY April 09, 2021 7:17am June 06, 2022 1:37pm Lactobacillus Combination No.9 (Adult 50 Plus Probiotic) 4 billion cell capsule (11 sources) Start: 01-07-2022 take 4 capsules by mouth once daily Lactobacillus Combination No.9 (Adult 50 Plus Probiotic) 4 billion cell capsule Active 4000 MMU CELLS PO DAILY January 06, 2022 11:00pm administer with a meal Start: 01-07-2022 take 4 capsules by m outh once daily Lactobacillus Combination No.9 (Adult 50 Plus Probiotic) 4 billion cell capsule Active 4000 MMU CELLS PO DAILY January 07, 2022 12:00am administer with a meal Completed/Discontinued Medications Medication Drug Class(es) Dates Sig (Normalized) Sig (Original) aspirin 81 mg delayed release oral tablet (11 sources) Platelet Aggregation Inhibitor, Nonsteroidal Anti-inflammatory Drug Start: 03-25-2018 End: 08-01-2023 take 81 mg by mouth once daily Aspirin Discontinued 81 MG PO DAILY March 24, 2018 11:00pm August 01, 2023 11:27am atorvastatin 10 mg oral tablet (20 sources) HMG-CoA Reductase Inhibitor Start: 01-12-2019 End: 06-23-2023 take 1 tablet by mouth once daily Atorvastatin (Lipitor) 10 mg tablet Discontinued 10 MG PO DAILY June 25, 2021 12:34pm June 20, 2022 9:51am famotidine 20 mg oral tablet (11 sources) Histamine-2 Receptor Antagonist Start: 03-25-2018 End: 03-26-2018 take 1 tablet by mouth once daily Famotidine (Pepcid) 20 mg tablet Discontinued 20 MG PO DAILY March 24, 2018 11:00pm March 26, 2018 2:05pm ibandronic acid 150 mg oral tablet (20 sources) Bisphosphonate Start: 07-16-2018 End: 01-08-2021 take 1 tablet by mouth every month Ibandronate (Boniva) 150 mg tablet Discontinued 150 MG PO EVERY MONTH July 16, 2018 12:00am January 08, 2021 9:32am Start: 03-25-2018 End: 03-26-2018 take 1 tablet by mouth every month Ibandronate (Boniva) 150 mg tablet Discontinued 150 MG PO EVERY MONTH March 24, 2018 11:00pm March 26, 2018 2:05pm 24 hr metoprolol succinate 50 mg extended release oral tablet (20 sources) beta-Adrenergic Stephenie Start: 01-08-2021 End: 03-26-2021 take 50 mg by mouth once daily Metoprolol Succinate Discontinued 50 MG PO DAILY January 16, 2021 11:10am March 26, 2021 1:51pm Start: 07-15-2019 End: 01-08-2021 take 1 tablet by mouth once daily Metoprolol Succinate (Toprol Xl) 25 mg tablet extended release 24 hr Discontinued 25 MG PO DAILY September 18, 2020 3:19pm January 08, 2021 10:03am Start: 05-31-2019 End: 07-15-2019 take 2 tablets by mouth once daily Metoprolol Succinate (Toprol Xl) 25 mg tablet extended release 24 hr Discontinued 12.5 MG PO DAILY July 13, 2019 2:45pm July 15, 2019 6:11pm Start: 04-09-2018 End: 05-31-2019 take 1 tablet by mouth once daily Metoprolol Succinate (Toprol Xl) 25 mg tablet extended release 24 hr Discontinued 25 MG PO DAILY August 05, 2018 1:22pm May 31, 2019 10:52am omega-3 fatty acids capsule (11 sources) Start: 01-12-2019 End: 05-31-2019 take 1 capsule by mouth once daily omega-3 fatty acids capsule Discontinued 1000 MG PO DAILY January 11, 2019 11:00pm May 31, 2019 10:52am 1040 mg Start: 01-12-2019 End: 05-31-2019 take 1 capsule by mouth once daily omega-3 fatty acids capsule Discontinued 1000 MG PO DAILY January 12, 2019 12:00am May 31, 2019 11:52am 1040 mg 28 actuat teriparatide 0.02 mg/actuat pen injector (11 sources) Parathyroid Hormone Analog Start: 03-26-2021 End: 04-07-2023 Teriparatide (Forteo) 20 mcg/dose (620mcg/2.48mL) pen injector Discontinued 20 MCG SC DAILY March 25, 2021 11:00pm April 07, 2023 1:00pm Vitamins A,C,M-Vfgq-Timiug (Preservision Areds) 14,320-226-200 mkpr-wx-cdih capsule (11 sources) Start: 03-25-2018 End: 12-06-2022 take 1 capsule by mouth twice daily Vitamins A,C,U-Pabk-Tterst (Preservision Areds) 14,320-226-200 pfls-hr-wgvq capsule Discontinued 1 CAP PO TWICE A DAY March 24, 2018 11:00pm December 06, 2022 12:17pm Start: 03-25-2018 End: 12-06-2022 take 1 capsule by mouth twice daily Vitamins A,C,I-Yuvp-Erklyk (Preservision Areds) 14,320-226-200 vifm-bs-ryvf capsule Discontinued 1 CAP PO TWICE A DAY March 25, 2018 12:00am December 06, 2022 1:17pm Start: 03-25-2018 take 1 capsule by mo [facility] twice daily Vitamins A,C,Y-Kqzj-Jacurz (Preservision Areds) 14,320-226-200 ulzr-dz-ccqf capsule Active 1 CAP PO TWICE A DAY March 24, 2018 11:00pm Start: 03-25-2018 take 1 capsule by mo ut twice daily Vitamins A,C,O-Wssd-Qbjucs (Preservision Areds) 14,320-226-200 oqsz-sy-tyxs capsule Active 1 CAP PO TWICE A DAY March 25, 2018 12:00am Problems Active Problems Problem Classification Problem Date Documented Da te Episodic/Chronic Cardiac dysrhythmias (20 sources) Ventricular premature beats; Translations: [Ventricular premature depolarization] Onset: 06-21-2024 Chronic Disorders of lipid metabolism (17 sources) Mixed hyperlipidemia; Translations: [Mixed hyperlipidemia] Onset: 10-04-2024 Chronic Immunizations and screening for infectious disease (12 sources) Contact with and (suspected) exposure to other viral communicable diseases; Translations: [Contact with or suspected exposure to other viral communicable disease] Episodic Nutritional deficiencies (1 source) Vitamin D deficiency, unspecified; Translations: [Vitamin D deficiency, unspecified] Onset: 10-04-2024 Chronic Osteoporosis (8 sources) Osteoporosis; Translations: [Age-related osteoporosis without current pathological fracture] Onset: 10-04-2024 12-06-2022 Chronic Other screening for suspected conditions (not mental disorders or infectious disease) (1 source) Encounter for screening mammogram for malignant neoplasm of breast; Translations: [Encounter for screening mammogram for malignant neoplasm of breast] Onset: 07-22-2024 Episodic Past or Other Problems Problem Classification Problem Date Documented Date Episodic/Chronic Cardiac dysrhythmias (19 sources) Palpitations; Translations: [Palpitations] Onset: 06-21-2024 Episodic Other aftercare (1 source) 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 (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; Translations: [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] Onset: 06-21-2024 Episodic Residual codes; unclassified (11 sources) History of radiofrequency ablation operation for arrhythmia; Translations: [Other specified postprocedural states] Onset: 11-14-1998 03-26-2021 Episodic Residual codes; unclassified (4 sources) Other specified postprocedural states; Translations: [Personal history of surgery to heart and great vessels, presenting hazards to health] Onset: 11-14-1998 06-26-2023 Episodic Results Test Name Value Interpretation Reference Range Facility Endocrinology Visit Reporton 10-04-2024 Endocrinology Visit Report [facility] [address] [place] [address] OFFICE VISIT Date of Service: 10/04/24 MR#: [id number] Acct: [id number] Name: YASMINE BRUNSON Rep #: [id number] : 1955 Provider: Yusra Angulo Age/Sex: 69/F Location: [facility] [place] Status: Signed Intake Vital Signs 01/19/24 10:00 06/21/24 11:03 10/04/24 08:57 Height 5 ft 7 in 5 ft 7 in 5 ft 7 in Weight: 106 lb 6 oz BMI 16.6 BP 124/70 H Blood Pressure Location Lt brachial Position Sitting Pulse 70 Pulse Source Monitor Pulse Oximetry (%) 99 Oxygen Delivery Method room air Intake Visit Reasons: 1 Y FU/Prolia B B Chief Complaint: Osteoporosis Is patient in pain?: No Allergies No Known Allergies Allergy (Verified 10/04/24 08:58) Medications ???Medication ???Instructions ???Recorded ???Confirmed ???Type calcium 315 mg (as 1 tab PO DAILY 03/26/18 10/04/24 H istory citrate)-vitamin D3 5 mcg (200 unit) tablet (Calcium Citrate + D) cholecalciferol (vitamin D3) 50 50 mcg PO DAILY 01/10/20 10/04/24 History mcg (2,000 unit) capsule lactobacillus combination no.9 4 4,000 mmu cells PO DAILY 01/07/22 10/04/24 History billion cell capsule (Adult 50 Plus Probiotic) denosumab 60 mg/mL subcutaneous 60 mg subcut [id number] #1 mL 10/04/24 Rx syringe (Prolia) diltiazem HCl 120 mg 120 mg PO QAM #90 caps 01/19/24 Rx capsule,extended release 24 hr atorvastatin 10 mg tablet (Lipitor) 10 mg PO DAILY #90 tabs 4 10/04/24 Rx apixaban 5 mg tablet (Eliquis) 5 mg PO BID #180 tabs 08/12/24 Rx ascorbic acid (vitamin C) 500 mg mg PO 10/04/24 10/04/24 History capsule zinc glycinate 20 mg capsule 20 mg PO ONCE 10/04/24 10/04/24 Hi story Have you fallen in the past year?: No PFSH Medical History Osteoporosis Mixed hyperlipidemia Premature ventricular contraction Palpitations SVT (supraventricular tachycardia) Surgical History History of appendectomy History of cardiac radiofrequency ablation ( 11/24/98) Family History Sister Diabetes Father Colon cancer Aortic valve stenosis Atrial fibrillation Mother Hyperlipemia Osteoporosis Brother Multiple myeloma Social History Smoking Status: Never smoker alcohol intake: never substance use type: does not use caffeine: Yes HPI HPI Chief Complaint: Osteoporosis Details: YASMINE BRUNSON, is a 69 F who presents to the office today for follow up. History of compression fracture of L1 in 2019 (lunging for father's wheelchair) Mother had hip fracture at age 80 and multiple compression fractures. She had course of bisphosphonate, then Forteo. She has been on Prolia for two years. No falls or fractures this year. She is trying to gain weight. She is doing her exercises. ROS Const Constitutional: No fatigue or weight change ENT ENT: No dizziness/vertigo Cardio Cardiology: No chest pain at rest, chest pain with exertion, shortness of breath or palpitations Skin Skin: No wounds Endo Endocrine: No fatigue or weight change Exam Const General: cooperative, healthy appearing, comfortable, no acute distress, well developed and not cushingoid Nutritional Appearance: underweight Orientation: alert, awake and oriented x3 HENMT Head: normal to inspection Ears: hearing grossly normal bilaterally Nose: external nose normal Mouth: oral mucosae normal Eyes General: appearance normal, both eyes and all related structures Alignment and Position: alignment normal Periorbital: periorbital findings normal Eyelids: eyelids normal Conjunctivae: conjunctivae normal Neck Neck: normal visual inspection Neck mass: No Thyroid: thyroid normal Lymphatic: no lymphadenopathy noted Chest Chest palpation inspection: normal inspection of the chest Resp Effort Inspection: normal respiratory effort, able to speak in complete sentences, symmetric chest movement, no audible wheezes and no cough Auscultation: Bilateral: Clear to Auscultation Cardio Rate: regular rate Rhythm: regular rhythm Skin General: no rashes or lesions noted Neuro General: patient alert, patient awake and patient oriented x3 Cranial Nerves: CN's II-XI intact bilaterally Cognition: normal cognition Speech: speech normal Gait: normal gait Motor: muscle tone normal throughout Extrem General: no edema Psych Appearance: grossly normal Mental Status: mental status grossly normal Mood: congruent mood Affect: normal affect Speech and Movement: speech and movement normal Attitude: (more content not included)... Normal [facility] SCRN MAMM (CAD)W/DAVIAN PERLITARyann n 06-25-2024 SCRN MAMM (CAD)W[facility] [address] [place] [address] SCRN MAMM (CAD)W/DAVIAN HEALY MR#: [id number] Acct: [id number] Name: YASMINE BRUNSON Rep #: [id number] : 1955 F 69 From: David cabezas MD PCP: Dr. Joelle Krishnamurthy MD Status: [facility] Study: SCRN MAMM (CAD)W/DAVIAN BILAT Date of Exam: 06/16 Exam# [id number] Ordering Dr: Joelle Krishnamurthy MD [id number] MAMMOGRAPHY - BILATERAL SCREENING REASON FOR EXAM: Female, 69 years old. Routine annual screening examination. PERTINENT HISTORY: Non-contributory. TECHNIQUE: Digital bilateral breast davian (3D mammographic acquisition) in the CC and MLO projections. 2-D mediolateral oblique (MLO) and craniocaudad (CC) views of both breasts were obtained. CAD: Full Field Digital Mammography with Computer Added Detection was performed. COMPARISON: Comparison is made with prior study dated June 2023 and May 13, 2022 FINDINGS: Breast Composition: The breasts are heterogeneously dense, which may obscure small masses. There are no dominant masses or suspicious calcifications. No other significant abnormalities are identified. There has been no significant change since the prior study. BI/SCRN MAMM (CAD)W/DAVIAN BILAT IMPRESSION: Stable bilateral screening mammogram. Yearly follow-up mammogram recommended. (A) ASSESSMENT CATEGORY: BIRADS Category 1: Negative. A letter regarding these results will be sent to the patient by the facility within 30 days. Approximately 10% of breast cancers are not detected by mammography. A normal mammogram should not delay biopsy of a clinically suspicious abnormality. [id number] Electronically Signed: David Snyder MD at 9:51 EST , CC: Dr. Joelle Krishnamurthy MD Baggage Porter: Signed Normal [facility] Cardiology Visit Reporton Cardiology Visit Report [facility] [address] [place] [address] OFFICE VISIT Date of Service: 06/21/24 MR#: [id number] Acct: [id number] Name: YASMINE BRUNSON Rep #: [id number] : 1955 Provider: JENISE alcantar Age/Sex: 69/F [place] [facility] Status: Signed HPI HPI History of Present Illness Details: Yasmine Brunson is a 69-year-old white female who presents today for outpatient cardiovascular follow-up based upon history of palpitations not predominantly related to her PVCs, PSVT status post EPS/RFA ([facility] - 1998 by Tripp Swift MD), and hyperlipidemia. She denies chest, arm, jaw, or neck discomfort. She notes intermittent palpitations. She denies bilateral lower extremity edema. She denies claudication. She denies shortness of breath with activity, shortness of breath at rest, orthopnea, or PND. She denies chronic cough. She denies significant, sudden weight gain. She denies lightheadedness, dizziness, near-syncope, or syncope. She denies blood in urine, blood in stool, or epistaxis. He denies fever with chills. She denies myalgia. She denies fatigue. Her exercise level has remained stable. Intake Vital Signs 06/26/23 11:33 01/19/24 10:00 06/21/24 11:03 Height 5 ft 7 in 5 ft 7 in 5 ft 7 in Weight: 108 lb BMI 16.9 BP 122/76 H Blood Pressure Location Lt brachial Position Sitting Respiration 18 Pulse 78 Pulse Source Monitor Pulse Oximetry (%) 99 Intake Visit Reasons: 1 y fu Ambulatory Care Nurse Required: No Is patient in pain?: No Allergies No Known Allergies Allergy (Verified 06/21/24 11:01) Medications ???Medication ???Instructions ???Recorded ???Confirmed ???Type calcium 315 mg (as 1 tab PO DAILY 03/26/18 06/21/24 History citrate)-vitamin D3 5 mcg (200 unit) tablet (Calcium Citrate + D) cholecalciferol (vitamin D3) 50 50 mcg PO DAILY 01/10/20 06/21/24 History mcg (2,000 unit) capsule lactobacillus combination no.9 4 4,000 mmu cells PO DAILY 01/07/22 06/21/24 History billion cell capsule (Adult 50 Plus Probiotic) denosumab 60 mg/mL subcutaneous 60 mg subcut [id number] #1 mL 02/27/23 06/21/24 Rx syringe (Prolia) apixaban 5 mg tablet (Eliquis) 5 mg PO BID #60 tabs 08/12/23 06/21/24 Rx diltiazem HCl 120 mg 120 mg PO QAM #90 caps 01/19/24 06/21/24 Rx capsule,extended release 24 hr atorvastatin 10 mg tablet (Lipitor) 10 mg PO DAILY #90 tabs 06/10/24 06/21/24 Rx Have you fallen in the past year?: No PFSH Medical History Osteoporosis Mixed hyperlipidemia Premature ventricular contraction Palpitations SVT (supraventricular tachycardia) Surgical History History of appendectomy History of cardiac radiofrequency ablation ( 11/24/98) Family History Sister Diabetes Father Colon cancer Aortic valve stenosis Atrial fibrillation Mother Hyperlipemia Osteoporosis Brother Multiple myeloma Social History Smoking Status: Never smoker alcohol intake: never substance use type: does not use caffeine: Yes ROS Const Const: Negative for fatigue, weakness, body ache, fever(s) or chills ENT ENT: Negative for dizziness or Nosebleed/epistaxis Cardio Chest Pain: No Palpitations: Yes Edema: None Muscle aches with walking: None Resp Respiratory: Negative for SOB with activity, SOB at rest, SOB orthopnea SOB lying down, Cough or paroxysmal nocturnal dyspnea GI GI: Negative nausea, vomiting blood/hematemesis, bright, red blood in stools or black,tarry stools : Negative for hematuria or frequent nighttime urination/ nocturia Musc Musc: Negative for muscle aches/ myalgia Skin Skin: Negative non-healing lesions or rash Neuro Neuro: Negative for dizziness, lightheadedness, near syncope, syncope, orthostatic symptoms or weakness Endo Endo: Negative for fatigue Allergy Allergy/Immunology: Negative for rash Cardiology Exam Const Appearance: cooperative, healthy appearing, comfortable and no acute distress Nutritional Appearance: average body habitus and well nourished Orientation: alert, awake and oriented x3 Head Head: normal to inspection Ears: hearing grossly normal bilaterally Nose: external nose normal Face and Sinus: face symmetric Mouth: moist mucous membranes Eyes General: appearance normal, both eyes and all related structures Eyelids: eyelids normal EOM: EOM intact bilaterally Neck Neck: normal visual inspection and no JVD Carotids: normal carotid upstroke Chest Chest inspection: normal inspection of the chest, symmetric chest movement and normal respirato (more content not included)... Normal [facility] Lipid Profileon 06-02-2024 Cholesterol [Mass/Vol] 161 mg/dL Normal 200 [facility] Comment on above: Result Comment: <200 mg/dL Desirable 200-240 mg/dL Borderline >240 mg/dL High Risk Performed By: #### L 500.4100, L500.3400 ####[facility] [address] [place], [address] Cholesterol in HDL [Mass/Vol] 81 mg/dL Normal [facility] Comment on above: Result Comment: The drugs N-Acetylcysteine and Metamizole may falsely depress this assay. Reference Range HDL <40 mg/dL Low HDL Cholesterol HDL >or= 60 mg/dL High HDL Cholesterol Performed By: #### L 500.4100, L500.3400 ####[facility] [address] [place], [address] Cholesterol in LDL [Mass/Vol] 70 mg/dL Normal 0-130 [facility] Comment on above: Performed By: #### L 500.4100, L500.3400 ####[facility] [address] [place], [address] Cholesterol in VLDL [Mass/Vol] 10 mg/dL Normal 5-40 [facility] Comment on above: Performed By: #### L 500.4100, L500.3400 ####[facility] [address] [place], [address] Triglyceride [Mass/Vol] 50 mg/dL Normal [facility] Comment on above: Result Comment: The drugs N-Acetylcysteine and Metamizole may falsely depress this assay. Serum Triglycerides Reference Interval Normal <150 mg/dL Borderline high 150 - 199 mg/dL High 200 - 499 mg/dL Very High > or = 500 mg/dL Performed By: #### L 500.4100, L500.3400 ####[facility] [address] [place], [address] Liver Profileon 06-02-2024 Albumin [Mass/Vol] 3.7 g/dL Normal 3.2-5.0 [facility] Comment on above: Performed By: #### L 500.4100, L500.3400 ####[facility] [address] [place], [address] ALK P 58 U/L Normal 45-117 [facility] Comment on above: Performed By: #### L 500.4100, L500.3400 ####[facility] [address] [place], [address] ALT [Catalytic activity/Vol] 15 U/L Normal 13-56 [facility] Comment on above: Performed By: #### L 500.4100, L500.3400 ####[facility] [address] [place], [address] AST [Catalytic activity/Vol] 12 U/L Low 15-37 [facility] Comment on above: Performed By: #### L 500.4100, L500.3400 ####[facility] [address] [place], [address] Bilirubin [Mass/Vol] 0.50 mg/dL Normal 0.20-1.00 [facility] Comment on above: Result Comment: For patients on eltrombopag therapy, use of Dimension [place] TBIL is not recommended. Performed By: #### L 500.4100, L500.3400 ####[facility] [address] [place], [address] Bilirubin.direct [Mass/Vol] 0.12 mg/dL Normal 0.00-0.30 [facility] Comment on above: Performed By: #### L 500.4100, L500.3400 ####[facility] [address] [place], [address] Globulin (S) [Mass/Vol] 3.5 g/dL Normal 2.2-4.2 [facility] Comment on above: Performed By: #### L 500.4100, L500.3400 ####[facility] [address] [place], [address] T PROT 7.2 g/dL Normal 6.4-8.2 [facility] Comment on above: Performed By: #### L 500.4100, L500.3400 ####[facility] [address] [place], [address] Office Visit Reporton 2023 Office Visit Report [facility] [address] [place] [address] OFFICE VISIT Date of Service: 04/08/24 MR#: [id number] Acct: [id number] Patient: YASMINE BRUNSON Rep #: [id number] : 1955 Provider: Yusra Angulo Age/Sex: 69/F Location: [facility] [place] Status: Signed Intake Vital Signs 01/19/24 10:00 Height 5 ft 7 in Intake Visit Reasons: Prolia - B B Chief Complaint: Osteoporosis Allergies No Known Allergies Allergy (Verified 01/19/24 09:56) Have you fallen in the past year?: No Office Procedures Injections Procedure performed by: Hunter Olson Lot number: [id number] State Assessed Properties Director: [employer] date: 08/13/26 Dose of injection: 1 mL Site of injection: Sub-Q Medication Given: Yes Is this a patient provided medication?: No Office Meds Prolia 60 mg/mL subcutaneous syringe Performing Provider: Sal Alexis MD Performing Location: [facility] Administered by: Hunter Olson RN on 04/08/24 14:02 Dose Route Admin Location Dispensed Lot Number Expiration Date [facility] Man ufacturer 60 mg subcut Left Abdomen 1 mL [id number] 08/13/26 27406-330-68 [employer] Assessment and Plan Assessment and Plan (1) Osteoporosis: Status: Chronic Qualifiers: Osteoporosis type: age-related Presence of current pathological fracture: without current pathological fracture Qualified Code(s): M81.0 - Age-related osteoporosis without current pathological fracture Orders: Orders Prolia Injection 04/08/24 M81.0 - Age-related osteoporosis without current pathological fracture Clinical Quality Measures Falls Risk Screening/Assistive Devices Have you fallen in the past year?: No 04/09/24 0714 Date Sal Alexis MD [facility] Signature: Date (if applicable) CC: Normal [facility] Cardiology Visit Reporton Cardiology Visit Report [facility] [address] [place] [address] OFFICE VISIT Date of Service: 01/19/24 MR#: [id number] Acct: [id number] Name: YASMINE BRUNSON Rep #: [id number] : 1955 Provider: CINDY Solis Age/Sex: 69/F Location: [facility] [place] Status: Signed [facility] History of Present Illness Details: Yasmine Brunson is a 69-year-old white female who presents today for outpatient cardiovascular follow-up based upon history of palpitations not predominantly related to her PVCs, PSVT status post EPS/RFA ([facility] - 1998 by Tripp Swift MD), and hyperlipidemia. Pt sts that over the last few months she has been doing well. She has not felt like she needed to use her [employer] mobile jamila. She is busy with her grandkids. She has not had any palpitations. From a cardiac standpoint, patient is doing well. She does not have any chest discomfort/heaviness /tightness. Her exercise tolerance is stable for her age. She does not have any worsening symptoms of shortness of breath. She does not have any orthopnea. She denies PND. She does not have any symptoms of congestive heart failure. She does not have any lightheadedness or dizziness. She does not have any near-syncope or syncope. She does not have any lower extremity edema. She does not have any symptoms of claudication. Intake Vital Signs 07/28/23 10:52 12/05/23 13:57 01/19/24 09:56 01/19/24 10:00 Height 5 ft 7 in 5 ft 7 in 5 ft 7 in 5 ft 7 in Weight: 105 lb 103 lb BMI 16.4 16.1 BP 124/72 H 117/76 Blood Pressure Location Lt brachial Lt brachial Position Sitting Sitting Respiration 18 Pulse 77 66 Pulse Source Monitor Monitor Pulse Oximetry (%) 98 97 Oxygen Delivery Method room air Intake Visit Reasons: 6 M FU Ambulatory Care Nurse Required: No Is patient in pain?: No Allergies No Known Allergies Allergy (Verified 01/19/24 09:56) Medications ???Medication ???Instructions ???Recorded ???Confirmed ???Type calcium citrate 315 mg-vitamin D3 1 tab PO DAILY 03/26/18 01/19/24 History 5 mcg (200 unit) tablet (Calcium Citrate + D) cholecalciferol (vitamin D3) 50 50 mcg PO DAILY 01/10/20 01/19/24 History mcg (2,000 unit) capsule lactobacillus combination no.9 4 4,000 mmu cells PO DAILY 01/07/22 01/19/24 History billion cell capsule (Adult 50 Plus Probiotic) denosumab 60 mg/mL subcutaneous 60 mg subcut [id number] #1 mL 02/27/23 01/19/24 Rx syringe (Prolia) atorvastatin 10 mg tablet (Lipitor) 10 mg PO DAILY #90 tabs 06/23/23 01/19/24 Rx apixaban 5 mg tablet (Eliquis) 5 mg PO BID #60 tabs 08/12/23 01/19/24 Rx diltiazem HCl 120 mg 120 mg PO QAM #90 caps 01/19/24 01/19/24 Rx capsule,extended release 24 hr Have you fallen in the past year?: No PFSH Medical History Osteoporosis Mixed hyperlipidemia Premature ventricular contraction Palpitations SVT (supraventricular tachycardia) Surgical History History of appendectomy History of cardiac radiofrequency ablation ( 11/24/98) Family History Sister Diabetes Father Colon cancer Aortic valve stenosis Atrial fibrillation Mother Hyperlipemia Osteoporosis Brother Multiple myeloma Social History Smoking Status: Never smoker alcohol intake: never substance use type: does not use caffeine: Yes ROS Const Const: Negative for fatigue, weakness, headache(s), frequent falls, excessive sweating, weight gain or weight loss Eyes Eyes: Negative for blind spots, loss of peripheral vision, transient loss of vision, blurry vision, change in vision or double vision ENT ENT: Negative for headache(s), dizziness, tinnitus, Nosebleed/epistaxis or balance problems Cardio Chest Pain: No Palpitations: No Edema: None Muscle aches with walking: None Resp Respiratory: Negative for SOB with activity, SOB at rest, SOB orthopnea SOB lying down or Cough GI GI: Negative nausea, vomiting, heartburn, bloating, vomiting blood/hematemesis, bright, red blood in stools or black,tarry stools : Negative for hematuria Musc Musc: Negative for muscle aches/ myalgia, muscle weakness, joint pain or balance problems Skin Skin: Negative rash or wounds Neuro Neuro: Negative for dizziness, lightheadedness, near syncope, syncope, orthostatic symptoms, frequent falls, headache(s), weakness, confusion, memory loss, restless legs, blurry vision or double vision Cm Hematologic/Lymphati c: Negative for easy bleeding or easy bruising Endo Endo: Negative for fatigue, cold intolerance, heat intolerance or excessive sweating Psych Psych: (more content not included)... Normal [facility] Comprehensive Metabolic Prof karen 12-08-2023 Albumin [Mass/Vol] 3.7 g/dL Normal 3.2-5.0 [facility] Comment on above: Performed By: #### L 506.1000, L500.4050, L501.9520 #### [facility] [address] [place], [address] Albumin/Globulin [Mass ratio] 1.2 {ratio} Normal 0.9-2.4 [facility] Comment on above: Performed By: #### L 506.1000, L500.4050, L501.9520 #### [facility] [address] [place], [address] ALK P 46 U/L Normal 45-117 [facility] Comment on above: Performed By: #### L 506.1000, L500.4050, L501.9520 #### [facility] [address] [place], [address] ALT [Catalytic activity/Vol] 20 U/L Normal 13-56 [facility] Comment on above: Performed By: #### L 506.1000, L500.4050, L501.9520 #### [facility] [address] [place], [address] AST [Catalytic activity/Vol] 18 U/L Normal 15-37 [facility] Comment on above: Performed By: #### L 506.1000, L500.4050, L501.9520 #### [facility] [address] [place], [address] Bilirubin [Mass/Vol] 0.50 mg/dL Normal 0.20-1.00 [facility] Comment on above: Result Comment: For patients on eltrombopag therapy, use of Dimension [place] TBIL is not recommended. Performed By: #### L 506.1000, L500.4050, L501.9520 #### [facility] [address] [place], [address] BUN/CRE 19.0 RATIO Normal 10-20 [facility] Comment on above: Performed By: #### L 506.1000, L500.4050, L501.9520 #### [facility] [address] [place], [address] CA,Total 9.3 mg/dL Normal 8.5-10.1 [facility] Comment on above: Performed By: #### L 506.1000, L500.4050, L501.9520 #### [facility] [address] [place], [address] Chloride [Moles/Vol] 108 mmol/L High 98-107 [facility] Comment on above: Performed By: #### L 506.1000, L500.4050, L501.9520 #### [facility] [address] [place], [address] CO2 [Moles/Vol] 26.0 mmol/L Normal 21.0-32.0 [facility] Comment on above: Performed By: #### L 506.1000, L500.4050, L501.9520 #### [facility] [address] [place], [address] Creatinine [Mass/Vol] 0.79 mg/dL Normal 0.55-1.02 [facility] Comment on above: Result Comment: The validity of the calculated GFR GFRAA in patients over 70 years has not been determined. Clinical correlation is essential. Performed By: #### L 506.1000, L500.4050, L501.9520 #### [facility] [address] [place], [address] EST GFR - AA 93 mL/min Normal >60 [facility] Comment on above: Result Comment: Afri can [place]ian GFR Calc Performed By: #### L 506.1000, L500.4050, L501.9520 #### [facility] [address] [place], [address] GAP 5 Normal 5-15 [facility] Comment on above: Performed By: #### L 506.1000, L500.4050, L501.9520 #### [facility] [address] [place], [address] GFR/1.73 sq M.predicted among non-blacks MDRD (S/P/Bld) [Vol rate/Area] 77 mL/min/{1.73_m2} Normal >60 [facility] Comment on above: Result Comment: Non- GFR Calc Performed By: #### L 506.1000, L500.4050, L501.9520 #### [facility] [address] [place], [address] Globulin (S) [Mass/Vol] 3.1 g/dL Normal 2.2-4.2 [facility] Comment on above: Performed By: #### L 506.1000, L500.4050, L501.9520 #### [facility] [address] [place], [address] Glucose [Mass/Vol] 98 mg/dL Normal 74-106 [facility] Comment on above: Performed By: #### L 506.1000, L500.4050, L501.9520 #### [facility] [address] [place], [address] Potassium [Moles/Vol] 4.1 mmol/L Normal 3.5-5.1 [facility] Comment on above: Performed By: #### L 506.1000, L500.4050, L501.9520 #### [facility] [address] [place], [address] Sodium [Moles/Vol] 139 mmol/L Normal 136-145 [facility] Comment on above: Performed By: #### L 506.1000, L500.4050, L501.9520 #### [facility] [address] [place], [address] T PROT 6.8 g/dL Normal 6.4-8.2 [facility] Comment on above: Performed By: #### L 506.1000, L500.4050, L501.9520 #### [facility] [address] [place], [address] Urea nitrogen [Mass/Vol] 15 mg/dL Normal 7-18 [facility] Comment on above: Performed By: #### L 506.1000, L500.4050, L501.9520 #### [facility] [address] [place], [address] Thyroid Stim Hormone (TSH)on 12-08-2023 TSH 1.46 uIU/mL Normal 0.358-3.74 [facility] Comment on above: Performed By: #### L 506.1000, L500.4050, L501.9520 ####[facility] [address] [place], [address] Vitamin D,25 Hydroxyon 12-07 Vitamin D 25-OH 61.0 ng/mL Normal [facility] Comment on above: Result Comment: Tracey min D 25(OH) Status Range Deficiency <20 ng/mL (50nmol/L) Insufficiency 20 - 30 ng/mL (50 - 75 nmol/L) Sufficiency 30 - 100 ng/mL (75 - 250 nmol/L) Toxicity >100 ng/mL (>250 nmol/L) Performed By: #### L 506.1000, L500.4050, L501.9520 #### [facility] [address] [place], [address] Endocrinology Visit Reporton 12-05-2023 Endocrinology Visit Report [facility] [address] [place] [address]. [address] [place] [address] OFFICE VISIT Date of Service: 12/05/23 MR#: [id number] Acct: [id number] Name: YASMINE BRUNSON Rep #: [id number] : 1955 Provider: Yusra Angulo Age/Sex: 68/F [place] [facility] Status: Signed Intake Vital Signs 12/06/22 13:16 07/28/23 10:52 12/05/23 13:57 Height 5 ft 7 in 5 ft 7 in 5 ft 7 in Weight: 105 lb BMI 16.4 BP 124/72 H Blood Pressure Location Lt brachial Position Sitting Pulse 77 Pulse Source Monitor Pulse Oximetry (%) 98 Oxygen Delivery Method room air Intake Visit Reasons: 1 Y FU Chief Complaint: Osteoporosis Ambulatory Care Nurse Required: No Accompanied by: Self Is patient in pain?: No Allergies No Known Allergies Allergy (Verified 12/05/23 14:00) Medications ???Medication ???Instructions ???Recorded ???Confirmed ???Type calcium citrate 315 mg-vitamin D3 1 tab PO DAILY 03/26/18 12/05/23 History 5 mcg (200 unit) tablet (Calcium Citrate + D) cholecalciferol (vitamin D3) 50 50 mcg PO DAILY 01/10/20 12/05/23 History mcg (2,000 unit) capsule lactobacillus combination no.9 4 4,000 mmu cells PO DAILY 01/07/22 12/05/23 History billion cell capsule (Adult 50 Plus Probiotic) denosumab 60 mg/mL subcutaneous 60 mg subcut [id number] #1 mL 02/27/23 12/05/23 Rx syringe (Prolia) atorvastatin 10 mg tablet (Lipitor) 10 mg PO DAILY #90 tabs 06/23/23 12/05/23 Rx apixaban 5 mg tablet (Eliquis) 5 mg PO BID #60 tabs 08/12/23 12/05/23 Rx diltiazem HCl 120 mg 120 mg PO QAM 12/05/23 History capsule,extended release 24 hr PFSH Medical History Osteoporosis Mixed hyperlipidemia Premature ventricular contraction Palpitations SVT (supraventricular tachycardia) Surgical History History of appendectomy History of cardiac radiofrequency ablation ( 11/24/98) Family History Sister Diabetes Father Colon cancer Aortic valve stenosis Atrial fibrillation Mother Hyperlipemia Osteoporosis Brother Multiple myeloma Social History Smoking Status: Never smoker alcohol intake: never substance use type: does not use caffeine: Yes HPI HPI Chief Complaint: Osteoporosis Details: YASMINE BRUNSON, is a 68 F who presents to the office today for follow up. History of compression fracture of L1 in 2019 (lunging for father's wheelchair) Mother had hip fracture at age 80 and multiple compression fractures. She had course of bisphosphonate, then Forteo. She has been on Prolia for one year. Exam Const General: cooperative, healthy appearing, comfortable, no acute distress, well developed and not cushingoid Nutritional Appearance: well nourished Orientation: alert, awake and oriented x3 HENMT Head: normal to inspection Ears: hearing grossly normal bilaterally Nose: external nose normal Mouth: oral mucosae normal Eyes General: appearance normal, both eyes and all related structures Alignment and Position: alignment normal Periorbital: periorbital findings normal Eyelids: eyelids normal Conjunctivae: conjunctivae normal Neck Neck: normal visual inspection Neck mass: No Thyroid: thyroid normal Lymphatic: no lymphadenopathy noted Chest Chest palpation inspection: normal inspection of the chest Resp Effort Inspection: normal respiratory effort, able to speak in complete sentences, symmetric chest movement, no audible wheezes and no cough Cardio Rate: regular rate Rhythm: regular rhythm Pulses: posterior tibial pulses present GI Inspection: normal to inspection Skin General: no rashes or lesions noted Neuro General: patient alert, patient awake and patient oriented x3 Cranial Nerves: CN's II-XI intact bilaterally Cognition: normal cognition Speech: speech normal Gait: normal gait Motor: muscle tone normal throughout Extrem General: no edema Psych Appearance: grossly normal Mental Status: mental status grossly normal Mood: congruent mood Affect: normal affect Speech and Movement: speech and movement normal Attitude: cooperative Thought Process: normal Thought Content: normal Judgment: judgment good Coding Level of Care Code Off vis,est,level 3 Diagnoses Age-related osteoporosis without current pathological fracture M81.0 Osteoporosis type: age-related Presence of current pathological fracture: without current pathological fracture Assessment and Plan Assessment and Plan (1) Osteoporosis: Status: Chronic Qualifiers: Osteoporosis type: age-related Presence of current pathological fracture: without current patho (more content not included)... Normal [facility] Lipid Profileon 11-11-2023 Cholesterol [Mass/Vol] 170 mg/dL Normal 200 [facility] Comment on above: Result Comment: <200 mg/dL Desirable 200-240 mg/dL Borderline >240 mg/dL High Risk Performed By: #### L 500.3400, L500.4100 #### [facility] [address] [place], [address] Cholesterol in HDL [Mass/Vol] 80 mg/dL Normal [facility] Comment on above: Result Comment: The drugs N-Acetylcysteine and Metamizole may falsely depress this assay. Reference Range HDL <40 mg/dL Low HDL Cholesterol HDL >or= 60 mg/dL High HDL Cholesterol Performed By: #### L 500.3400, L500.4100 #### [facility] [address] [place], [address] Cholesterol in LDL [Mass/Vol] 79 mg/dL Normal 0-130 [facility] Comment on above: Performed By: #### L 500.3400, L500.4100 #### [facility] [address] [place], [address] Cholesterol in VLDL [Mass/Vol] 11 mg/dL Normal 5-40 [facility] Comment on above: Performed By: #### L 500.3400, L500.4100 #### [facility] [address] [place], [address] Triglyceride [Mass/Vol] 57 mg/dL Normal [facility] Comment on above: Result Comment: The drugs N-Acetylcysteine and Metamizole may falsely depress this assay. Serum Triglycerides Reference Interval Normal <150 mg/dL Borderline high 150 - 199 mg/dL High 200 - 499 mg/dL Very High > or = 500 mg/dL Performed By: #### L 500.3400, L500.4100 #### [facility] [address] [place], [address] Liver Profileon 11-11-2023 Albumin [Mass/Vol] 3.7 g/dL Normal 3.2-5.0 [facility] Comment on above: Performed By: #### L 500.3400, L500.4100 #### [facility] [address] [place], [address] ALK P 46 U/L Normal 45-117 [facility] Comment on above: Performed By: #### L 500.3400, L500.4100 #### [facility] [address] [place], [address] ALT [Catalytic activity/Vol] 20 U/L Normal 13-56 [facility] Comment on above: Performed By: #### L 500.3400, L500.4100 #### [facility] [address] [place], [address] AST [Catalytic activity/Vol] 17 U/L Normal 15-37 [facility] Comment on above: Performed By: #### L 500.3400, L500.4100 #### [facility] [address] [place], [address] Bilirubin [Mass/Vol] 0.40 mg/dL Normal 0.20-1.00 [facility] Comment on above: Result Comment: For patients on eltrombopag therapy, use of Dimension [place] TBIL is not recommended. Performed By: #### L 500.3400, L500.4100 #### [facility] [address] [place], [address] Bilirubin.direct [Mass/Vol] 0.13 mg/dL Normal 0.00-0.30 [facility] Comment on above: Performed By: #### L 500.3400, L500.4100 #### [facility] [address] [place], [address] Globulin (S) [Mass/Vol] 3.1 g/dL Normal 2.2-4.2 [facility] Comment on above: Performed By: #### L 500.3400, L500.4100 #### [facility] [address] [place], [address] T PROT 6.8 g/dL Normal 6.4-8.2 [facility] Comment on above: Performed By: #### L 500.3400, L500.4100 #### [facility] [address] [place], [address] Office Visit Reporton 2023 Office Visit Report [facility] [address] [place] [address] OFFICE VISIT Date of Service: 10/07/23 MR#: [id number] Acct: [id number] Patient: YASMINE BRUNSON Rep #: [id number] : 1955 Provider: Yusra Angulo Age/Sex: 68/F Location: [facility] [place] Status: Signed Intake Vital Signs 07/28/23 10:52 Height 5 ft 7 in Intake Visit Reasons: PROLIA- B B Allergies No Known Allergies Allergy (Verified 10/07/23 10:26) Office Procedures Injections Procedure performed by: Jaclyn Maher Lot number: [id number] State Assessed Properties Director: [employer] date: 02/13/26 Dose of injection: 60 mg/ml Site of injection: other (LLQ) Medication Given: Yes Is this Buy Bill?: Yes Office Meds Prolia 60 mg/mL subcutaneous syringe Performing Provider: Sal Alexis MD Performing Location: [facility] Administered by: Jaclyn Maher on 10/07/23 10:26 Dose Route Admin Location Dispensed Lot Number Expiration Date [place] Man ufacturer 60 mg subcut LLQ 1 mL [id number] 02/13/26 82342-005-22 [employer] Assessment and Plan Assessment and Plan (1) Osteoporosis: Status: Chronic Qualifiers: Osteoporosis type: age-related Presence of current pathological fracture: without current pathological fracture Qualified Code(s): M81.0 - Age-related osteoporosis without current pathological fracture Orders: Orders Prolia Injection Today M81.0 - Age-related osteoporosis without current pathological fracture Clinical Quality Measures High Blood Pressure Screening/Follow Up High Blood Pressure follow-up Instructions: Recommended Blood Pressure Follow-Up Interventions: *Normal BP: No follow-up required for SBP < 120 mmHg and DBP < 80 mmHg: *Elevated BP: Patients with SBP of 120-129 mmHg and DBP < 80 mmHg: *Referral to Alternate/Primary Care Health Nursing Assistants Teacher OR * Follow-up with rescreen in 2 to 6 months AND recommend nonpharmacologic interventions * First Hypertensive BP Reading: Patients with one elevated reading of SBP >=130 mmHg OR DBP >= 80 mmHg: *Referral to Alternate/Primary Care Health Professional OR *Follow-up with rescreen in >1 day and < 4 weeks AND recommend nonpharmacologic interventions *Second Hypertensive BP Reading: *Second Hypertensive BP Reading:Patients with second elevated reading of SBP of 130-139 mmHg or DBP of 80-89 mmHg (and not SBP >=140 or DBP >=90): * Referral to Alternate/Primary Care Health Nursing Assistants Teacher OR *Nonpharmacological Intervention AND reassessment in 2-6 months AND an order for a laboratory test or ECG for hypertension *Second Hypertensive BP Reading: SBP >=140 or DBP >=90 *Referral to Alternate/Primary Care Healthcare Professional OR *Nonpharmacological Intervention AND BP lowering medication AND reassessment within 4 weeks AND an order for a laboratory test or ECG for hypertension BP Second Hypertensive Readings: For both questions related to the second hypertensive readings, orders for lab/ECG need to be placed in addition to responding to the non-pharmacological and follow up questions. 10/07/23 1351 Date Sal Lawson Signature: Date (if applicable) CC: [facility] Basophil percentageOrdered B y: Walter Park on 05-01-2023 Bilirubin [Mass/Vol] 0.50 mg/dL 0.20-1.00 [facility] Comment on above: For patients on eltr ombopag therapy, use of Dimension Benicia TBIL is not recommended. Cholesterol [Mass/Vol] 147 mg/dL <200 [facility] Comment on above: <200 mg/dL Desirable 200-240 mg/dL Borderline >240 mg/dL High Risk Protein [Mass/Vol] 6.8 g/dL 6.4-8.2 [facility] Triglyceride [Mass/Vol] 67 mg/dL <199 [facility] Comment on above: The drugs N-Acetylcy steine and Metamizole may falsely depress this assay.Serum Triglycerides Reference Interval Normal <150 mg/dL Borderline high 150 - 199 mg/dL High 200 - 499 mg/dL Very High > or = 500 mg/dL Direct bilirubinOrdered By: Walter Park on 05-01-2023 Bilirubin.direct [Mass/Vol] 0.11 mg/dL 0.00-0.30 [facility] Laboratory - Chemistry and C hemistry - challengeOrdered By: Walter Park on 05-01-2023 ALP [Catalytic activity/Vol] 65 U/L 45-117 [facility] ALT [Catalytic activity/Vol] 16 U/L 13-56 [facility] Globulin (S) [Mass/Vol] 3.2 g/dL 2.2-4.2 [facility] Serum or plasma albumin glenda urement (mass/volume)Ordered By: Walter Park on 05-01-2023 Albumin [Mass/Vol] 3.6 g/dL 3.2-5.0 [facility] Serum or plasma cholesterol in HDL measurement (mass/volume)Ordered By: Walter Park on 05-01-2023 Cholesterol in HDL [Mass/Vol] 68 mg/dL >40 [facility] Comment on above: The drugs N-Acetylcy steine and Metamizole may falsely depress this assay. Reference Range HDL <40 mg/dL Low HDL Cholesterol HDL >or= 60 mg/dL High HDL Cholesterol Serum or plasma cholesterol in VLDL measurement (mass/volume)Ordered By: Walter Park on 05-01-2023 Cholesterol in VLDL [Mass/Vol] 13 mg/dL 5-40 [facility] Serum or plasma low density lipoprotein (LDL) cholesterol measurement (mass/volume)Ordered By: Walter Park on 05-01-2023 Cholesterol in LDL [Mass/Vol] 66 mg/dL 0-130 [facility] Thin prep Papanicolaou smear with manual screeningOrdered By: Walter Park on 05-01-2023 Thin prep Papanicolaou smear with manual screening 12 U/L 15-37 [facility] Basophil percentageOrdered B y: Sal Alexis on 12-06-2022 Bilirubin [Mass/Vol] 0.40 mg/dL 0.20-1.00 [facility] Comment on above: For patients on eltr ombopag therapy, use of Dimension Benicia TBIL is not recommended. Chloride [Moles/Vol] 109 mmol/L 98-107 [facility] Glucose [Mass/Vol] 96 mg/dL 74-106 [facility] Potassium [Moles/Vol] 3.9 mmol/L 3.5-5.1 [facility] Protein [Mass/Vol] 6.7 g/dL 6.4-8.2 [facility] Sodium [Moles/Vol] 143 mmol/L 136-145 [facility] Laboratory - Chemistry and C hemistry - challengeOrdered By: Sal Alexis on 12-06-2022 ALP [Catalytic activity/Vol] 70 U/L 45-117 [facility] ALT [Catalytic activity/Vol] 25 U/L 13-56 [facility] CO2 [Moles/Vol] 29.0 mmol/L 21.0-32.0 [facility] Globulin (S) [Mass/Vol] 2.9 g/dL 2.2-4.2 [facility] Urea nitrogen/Creatinine [Mass ratio] 23.4 mg/mg 10-20 [facility] No Panel InformationOrdered By: Sal Alexis on 12-06-2022 Estimated GFR (MDRD) Amer 102 mL/min >60 [facility] Comment on above: GFR Calc Estimated GFR (MDRD) Non-Af Amer 84 mL/min >60 [facility] Comment on above: Non- GFR Calc Vitamin D 25-Hydroxy 76.3 ng/mL [facility] Comment on above: Vitamin D 25(OH) Sta tus Range Deficiency <20 ng/mL (50nmol/L) Insufficiency 20 - 30 ng/mL (50 - 75 nmol/L) Sufficiency 30 - 100 ng/mL (75 - 250 nmol/L) Toxicity >100 ng/mL (>250 nmol/L) Serum or plasma albumin glenda urement (mass/volume)Ordered By: Sal Alexis on 12-06-2022 Albumin [Mass/Vol] 3.8 g/dL 3.2-5.0 [facility] Serum or plasma albumin/glob ulin mass ratioOrdered By: Sal Alexis on 12-06-2022 Albumin/Globulin [Mass ratio] 1.3 {ratio} 0.9-2.4 [facility] Serum or plasma calcium glenda urement (mass/volume)Ordered By: Sal Alexis on 12-06-2022 Calcium [Mass/Vol] 8.9 mg/dL 8.5-10.1 [facility] Serum or plasma creatinine m easurement (mass/volume)Ordered By: Sal Alexis on 12-06-2022 Creatinine [Mass/Vol] 0.73 mg/dL 0.55-1.02 [facility] Comment on above: The validity of the calculated GFR & GFRAA in patients over 70 years has not been determined. Clinical correlation is essential. Serum or plasma urea nitroge n measurement (mass/volume)Ordered By: Sal Alexis on 12-06-2022 Urea nitrogen [Mass/Vol] 17 mg/dL 7-18 [facility] Thin prep Papanicolaou smear with manual screeningOrdered By: Sal Alexis on 12-06-2022 Thin prep Papanicolaou smear with manual screening 17 U/L 15-37 [facility] Thin prep Papanicolaou smear with manual screening 5 5-15 [facility] Basophil percentageOrdered B y: Dr. Lo on 07-29-2022 Bilirubin [Mass/Vol] 0.60 mg/dL 0.20-1.00 [facility] Comment on above: For patients on eltr ombopag therapy, use of Dimension Benicia TBIL is not recommended. Cholesterol [Mass/Vol] 158 mg/dL <200 [facility] Comment on above: <200 mg/dL Desirable 200-240 mg/dL Borderline >240 mg/dL High Risk Protein [Mass/Vol] 7.1 g/dL 6.4-8.2 [facility] Triglyceride [Mass/Vol] 64 mg/dL <199 [facility] Comment on above: The drugs N-Acetylcy steine and Metamizole may falsely depress this assay.Serum Triglycerides Reference Interval Normal <150 mg/dL Borderline high 150 - 199 mg/dL High 200 - 499 mg/dL Very High > or = 500 mg/dL Direct bilirubinOrdered By: Dr. Lo on 07-29-2022 Bilirubin.direct [Mass/Vol] 0.12 mg/dL 0.00-0.30 [facility] Laboratory - Chemistry and C hemistry - challengeOrdered By: Dr. Lo on 07-29-2022 ALP [Catalytic activity/Vol] 66 U/L 45-117 [facility] ALT [Catalytic activity/Vol] 21 U/L 13-56 [facility] Globulin (S) [Mass/Vol] 3.1 g/dL 2.2-4.2 [facility] Serum or plasma albumin glenda urement (mass/volume)Ordered By: Dr. Lo on 07-29-2022 Albumin [Mass/Vol] 4.0 g/dL 3.2-5.0 [facility] Serum or plasma cholesterol in HDL measurement (mass/volume)Ordered By: Dr. Lo on 07-29-2022 Cholesterol in HDL [Mass/Vol] 76 mg/dL >40 [facility] Comment on above: The drugs N-Acetylcy steine and Metamizole may falsely depress this assay. Reference Range HDL <40 mg/dL Low HDL Cholesterol HDL >or= 60 mg/dL High HDL Cholesterol Serum or plasma cholesterol in VLDL measurement (mass/volume)Ordered By: Dr. Lo on 07-29-2022 Cholesterol in VLDL [Mass/Vol] 13 mg/dL 5-40 [facility] Serum or plasma low density lipoprotein (LDL) cholesterol measurement (mass/volume)Ordered By: Dr. Lo on 07-29-2022 Cholesterol in LDL [Mass/Vol] 69 mg/dL 0-130 [facility] Thin prep Papanicolaou smear with manual screeningOrdered By: Dr. Lo on 07-29-2022 Thin prep Papanicolaou smear with manual screening 15 U/L 15-37 [facility] Absolute lymphocyte countOrd ered By: Dr. Krishnamurthy on 07-01-2022 Lymphocytes Auto (Unsp spec) [#/Vol] 1.69 10*3/uL 0.83-4.51 [facility] Basophil percentageOrdered B y: Dr. Krishnamurthy on 07-01-2022 Basophils/100 WBC (Bld) 0.4 % 0-1 [facility] Chloride [Moles/Vol] 104 mmol/L 98-107 [facility] Eosinophils/100 WBC (Bld) 0.3 % 0-5 [facility] Glucose [Mass/Vol] 97 mg/dL 74-106 [facility] Neutrophils (Bld) [#/Vol] 4.7 10*3/uL 2.0-7.7 [facility] Neutrophils/100 WBC (Bld) 69.0 % 47-70 [facility] Potassium [Moles/Vol] 4.3 mmol/L 3.5-5.1 [facility] Sodium [Moles/Vol] 141 mmol/L 136-145 [facility] WBC (Bld) [#/Vol] 6.8 10*3/uL 4.4-11.0 [facility] Blood erythrocytes count (nu mber/volume)Ordered By: Dr. Krishnamurthy on 07-01-2022 RBC (Bld) [#/Vol] 4.62 10*6/uL 4.2-5.4 [facility] Blood hemoglobin measurement (mass/volume)Ordered By: Dr. Krishnamurthy on 07-01-2022 Hemoglobin (Bld) [Mass/Vol] 13.2 g/dL 12.0-15.0 [facility] Blood lymphocytes/100 leukoc ytesOrdered By: Dr. Krishnamurthy on 07-01-2022 Lymphocytes/100 WBC (Bld) 24.9 % 19-41 [facility] Blood monocytes/100 leukocyt esOrdered By: Dr. Krishnamurthy on 07-01-2022 Monocytes/100 WBC (Bld) 5.1 % 0-10 [facility] Blood platelet mean volumeOr dered By: Dr. Krishnamurthy on 07-01-2022 Platelet mean volume (Bld) [Entitic vol] 9.7 fL 6.2-12.0 [facility] Determination of erythrocyte mean corpuscular volume (MCV)Ordered By: Dr. Krishnamurthy on 07-01-2022 MCV (RBC) [Entitic vol] 87.7 fL 81-99 [facility] Hematocrit Auto (Bld) [Volum e fraction]Ordered By: Dr. Krishnamurthy on 07-01-2022 Hematocrit (Bld) [Volume fraction] 40.5 % 37-47 [facility] Laboratory - Chemistry and C hemistry - challengeOrdered By: Dr. Krishnamurthy on 07-01-2022 CO2 [Moles/Vol] 26.0 mmol/L 21.0-32.0 [facility] Urea nitrogen/Creatinine [Mass ratio] 16.4 mg/mg 10-20 [facility] Laboratory - Hematology and Cell countsOrdered By: Dr. Krishnamurthy on 07-01-2022 Erythrocyte distribution width (RBC) [Entitic vol] 39.4 fL 35.1-43.9 [facility] Erythrocyte distribution width (RBC) [Ratio] 12.3 % 11.6-14.6 [facility] Immature granulocytes/100 WBC (Bld) 0.300 % 0.0-0.9 [facility] Comment on above: IG% - Immature Granu locytes (promyelocytes, myelocytes and metamyelocytes) > 1% indicates that a LEFT SHIFT is Present. MCH (RBC) [Entitic mass] 28.6 pg 27.0-32.0 [facility] Nucleated RBC/100 WBC (Bld) [Ratio] 0 % 0-5 [facility] MCHC Auto (RBC) [Mass/Vol]Or dered By: Dr. Krishnamurthy on 07-01-2022 MCHC (RBC) [Mass/Vol] 32.6 g/dL 32-36 [facility] No Panel InformationOrdered By: Dr. Krishnamurthy on 07-01-2022 Estimated GFR (MDRD) Amer 101 mL/min >60 [facility] Comment on above: GFR Calc Estimated GFR (MDRD) Non-Af Amer 84 mL/min >60 [facility] Comment on above: Non- GFR Calc Thyroid Stimulating Hormone (TSH) 1.27 uIU/mL 0.358-3.74 [facility] Platelets bldOrdered By: Dr. Krishnamurthy on 07-01-2022 Platelets (Bld) [#/Vol] 318 10*3/uL 150-450 [facility] Serum or plasma calcium glenda urement (mass/volume)Ordered By: Dr. Krishnamurthy on 07-01-2022 Calcium [Mass/Vol] 9.4 mg/dL 8.5-10.1 [facility] Serum or plasma creatinine m easurement (mass/volume)Ordered By: Dr. Krishnamurthy on 07-01-2022 Creatinine [Mass/Vol] 0.73 mg/dL 0.55-1.02 [facility] Comment on above: The validity of the calculated GFR & GFRAA in patients over 70 years has not been determined. Clinical correlation is essential. Serum or plasma urea nitroge n measurement (mass/volume)Ordered By: Dr. Krishnamurthy on 07-01-2022 Urea nitrogen [Mass/Vol] 12 mg/dL 7-18 [facility] Thin prep Papanicolaou smear with manual screeningOrdered By: Dr. Krishnamurthy on 07-01-2022 Thin prep Papanicolaou smear with manual screening 11 5-15 [facility] Basophil percentageon 2021 Bilirubin [Mass/Vol] 0.50 mg/dL 0.20-1.00 [facility] Work Phone: Comment on above: For patients on eltr ombopag therapy, use of Dimension [place]icia TBIL is not recommended. Cholesterol [Mass/Vol] 150 mg/dL <200 [facility] Work Phone: Comment on above: <200 mg/dL Desirable 200-240 mg/dL Borderline >240 mg/dL High Risk Protein [Mass/Vol] 6.8 g/dL 6.4-8.2 [facility] Work Phone: Triglyceride [Mass/Vol] 63 mg/dL <199 [facility] Work Phone: Comment on above: The drugs N-Acetylcy steine and Metamizole may falsely depress this assay.Serum Triglycerides Reference Interval Normal <150 mg/dL Borderline high 150 - 199 mg/dL High 200 - 499 mg/dL Very High > or = 500 mg/dL Direct bilirubinon Bilirubin.direct [Mass/Vol] 0.14 mg/dL 0.00-0.30 [facility] Work Phone: Laboratory - Chemistry and C hemistry - challengeon 01-11-2022 ALP [Catalytic activity/Vol] 76 U/L 45-117 [facility] Work Phone: ALT [Catalytic activity/Vol] 26 U/L 13-56 [facility] Work Phone: Globulin (S) [Mass/Vol] 3.0 g/dL 2.2-4.2 [facility] Work Phone: Serum or plasma albumin glenda urement (mass/volume)on 01-11-2022 Albumin [Mass/Vol] 3.8 g/dL 3.2-5.0 [facility] Work Phone: Serum or plasma cholesterol in HDL measurement (mass/volume)on 01-11-2022 Cholesterol in HDL [Mass/Vol] 65 mg/dL >40 [facility] Work Phone: Comment on above: The drugs N-Acetylcy steine and Metamizole may falsely depress this assay. Reference Range HDL <40 mg/dL Low HDL Cholesterol HDL >or= 60 mg/dL High HDL Cholesterol Serum or plasma cholesterol in VLDL measurement (mass/volume)on 01-11-2022 Cholesterol in VLDL [Mass/Vol] 13 mg/dL 5-40 [facility] Work Phone: Serum or plasma low density lipoprotein (LDL) cholesterol measurement (mass/volume)on 01-11-2022 Cholesterol in LDL [Mass/Vol] 72 mg/dL 0-130 [facility] Work Phone: Thin prep Papanicolaou smear with manual screeningon 01-11-2022 Thin prep Papanicolaou smear with manual screening 19 U/L 15-37 [facility] Work Phone: Laboratory - Microbiology an d Antimicrobial susceptibilityon 10-15-2021 SARS-CoV-2 (COVID-19) RNA HERON+probe Ql (Unsp spec) Not detected [facility] Work Phone: No Panel Informationon 10-15 Influenza Types A,B Rapid (Clinic) Not detected [facility] Work Phone: CNOVon 03-29-2021 CNOV Office Visit (AGCARDPOB) YASMINE BRUNSON ([id number]) 1955 F Date Time Provider Department 03/29/21 11:20 AM DEVONTE ROMERO During your visit today, we recorded the following information about you: Pulse Blood pressure Weight Height 84/minute 120/74 50.8 kg 1.702 m Devonte Romero MD 03/29/2021 8:34 PM Signed PRIMARY CARE PHYSICIAN: Joelle Krishnamurthy MD ([facility]) [address] [facility] [address] [place] [address] REFERRING PHYSICIAN: David Lo MD ([facility]) [address] [facility] [address] [facility] [id number] Patient Care Team: Joelel Krishnamurthy as PCP - General David Lo as Specialty Retail Support Specialist (Cardiology) Marisela Garvey MD as Specialty Retail Support Specialist (Endocrinology) CHIEF COMPLAINT: Evaluation of arrhythmia HISTORY OF PRESENT ILLNESS: Ms. Brunson is a 66 year old female who presents today with her for evaluation of arrhythmia. She has a prior history of supraventricular tachycardia (SVT) and underwent successful catheter ablation in 1998 at [facility]. Those records are not available and she [...] discontinued and treatment with a calcium channel stephenie (diltiazem) was initiated. She has only been [...] ablation for SVT, likely RF catheter ablation; [facility] SOCIAL HISTORY Social History Tobacco Use - Smoking status: Never Smoker - Smokeless tobacco: Never Used Substance Use Topics - Alcohol use: No - Drug use: Not Currently FAMILY HISTORY Problem Relation Age of Onset - Colon Cancer Father - Diabetes Sister - Osteoporosis Mother - other (hypercholestryamine ) Mother - other (testicular cancer) Son ALLERGIES: [...] S1 normal and S2 normal. No murmur heard (more content not included)... Normal [facility] CNOVon 11-25-2018 CN Office Visit (GYNML) YASMINE BRUNSON ([id number]) 1955 F Date Time Provider Department 11/25/18 11:00 AM BOB SMITH GYN During your visit today, we recorded the following information about you: Temperature Pulse Blood pressure Weight 97.7 degrees 63/minute 136/65 50.2 kg Height 1.689 m Bob Smith MD 11/30/2018 12:51 PM Signed Gynecologic Oncology [facility] Consultation Re: Yasmine Brunson [facility]#: [id number] 11/25/[address] Patsy Lopez for an opinion regarding a left adnexal mass. My final recommendations will be communicated back to the requesting physician by way of shared Medical record or letter to requesting physician via US mail. Dear Patsy, Thank you for referring Yasmine for consultation. Briefly, she is a 63 year old female with a past medical history of osteoporosis, PVCs, and SVT (s/p ablation 1998). She presents today for evaluation and management of a left adnexal mass. She was admitted over the weekend at [facility] with an L1 vertebral compression fracture. Patient had an MRI of her lumbar spine on 11/15/2018, showing a 5.2 cm left ovarian cyst. She then had a pelvic US, showing a septated left adnexal cyst measuring 5 x 4.8 x 5 cm in size. The right ovary was not visible. Uterus measuring about 6x3x3 cm in size with 4mm EMS and a possible 1 cm calcified fibroid. CA 125: 12. She has been referred to [facility] for evaluation and management. PRIOR TREATMENT AND DATE: 1)N/A PATHOLOGY: IMAGIN11/15/2018 MRI - LUMBAR SPINE: OS, Care Everywhere IMPRESSION: 1. Acute 25% L1 compression deformity. 2. 5.2 cm LEFT ovarian cyst. Pelvic ultrasound is recommended promptly. 11/15/2018 US - PELVIS: OSH, care Everywhere IMPRESSION: Large 5.0 x 4.0 x 5.0 cm septated LEFT adnexal cyst. This is an indeterminate lesion with benign and malignant possibilities considered. Suggest surgical consultation. LABS: CA 125 (U/mL) Date Value 11/18/2018 12 HEALTH MAINTENANCE: Last pap:3 years ago, per patient Last mammogram: 12/12/17 - Normal Last colonoscopy: 2017 - Normal per patient HISTORIES: PAST GYNECOLOGIC HISTORY: OB History T2 L2 SAB0 TAB0 Ectopic0 Multiple0 Live Births2 Comment: x 2LMP: No LMP recorded. Patient is postmenopausal. Hormonal contraceptives: No. HRT use: No. History of abnormal pap: No. PAST SURGICAL HISTORY Procedure Laterality Date - APPENDECTOMY - COLONOSCOP W/ OR W/O [facility] SPEC 12/10/2005 Colonoscopy - COLONOSCOP W/ OR W/O [facility] SPEC 10/04/2011 Colonoscopy - DANDC 1985 Irregular periods - PAST SURGICAL HISTORY OF ABLATION THERAPY FOR SVT PAST MEDICAL HISTORY Diagnosis Date - Benign neoplasm of rectum and anal canal - Heart palpitations - Osteoporosis - Premature ventricular beat - SVT (supraventricular tachycardia) (HCC) FAMILY HISTORY Problem Relation Age of Onset - Colon Cancer Father - Diabetes Sister - Osteoporosis Mother - other (hypercholestryamine ) Mother - other (testicular cancer) Son Family history of breast, ovarian, uterine or colon cancer: Yes, father Family history of VTE: No SOCIAL HISTORY Social History Tobacco Use - Smoking status: Never Smoker - Smokeless tobacco: Never Used Substance Use Topics - Alcohol use: No - Drug use: Not Currently Occupation: Marital Status: Survivorship treatment summary initiated: No pathology at this time Joelle Hernandez RN REVIEW OF SYSTEMS: GENERAL: No recent weight loss, fever, chills, malaise or fatigue. HEENT: No changes in hearing or vision, frequent or severe headaches, nose bleeds or other nasal problems. NECK: No lumps, goiter, pain, significant neck swelling, or difficulty swallowing. RESPIRATORY: No shortness of breath, cough, wheezing, recent pneumonia (within last 6 weeks) or recent URI (within 2 weeks). CARDIOVASCULAR: SVT, s/p ablation 1998 BREAST: No breast lumps, skin changes, nipple discharge, or adenopathy. GI: Reports occasional constipation. No abdominal pain, nausea, vomiting, diarrhea. No prior history of esophageal varicies or ascites. Patient denies drinking >2 alcoholic beverages a day. : No dysuria, gross hematuria, urinary frequency, urinary urgency, or incontinence. No history of renal failure, dialysis, or recent UTI (<6 weeks). MUSCULOSKELETAL: No muscle weakness or joint pain. SKIN: No skin lesions, rashes, or itching. PSYCH: No sleep disturbances, depression, bipolar disorder, drug dependency/history of drug dependency, or recent psychosocial stressors. HEMATOLOGY/LYMPHOLOG Y: No prolonged bleeding, bruising easily, swollen nodes, or anemia. No prior history of a blood clot or clotting disorder. No prior history of a bleeding disorder. Not on chronic anticoagulant/platel et medications. ENDOCRINE: Reports hot flashes. No cold or heat intolerance, polyuria, polydipsia, polyphagia, goiter, or night sweats. No prior diagnosis of diabetes or thyroid disorder. No chronic steroid use. NEURO: No history of paralysis, stroke/TIA, seizures, tremors, syncope, or paresthesias. ECOG performance status is zero (fully active, able to carry on all pre-disease performance without restriction) OBJECTIVE: VITALS: BP 136/65 (BP Site: Left Arm, BP Position: Sitting, BP Cuff Size: Regular Adult) Pulse 63 Temp 36.5 ?C (97.7 ?F) (Oral) Ht 168.9 cm (5' 6.5) Wt 50.2 kg (110 lb 11.2 oz) BMI 17.60 kg/m? GENERAL: Patient is a well developed, well nourished female. She is alert, oriented, pleasant and cooperative. SKIN: Color, texture, turgor normal. No rashes or lesions. HEENT: Normocephalic, atraumatic, mucus membranes moist and no lesions NECK: Supple, no adenopathy; thyroid symmetric, normal size, no bruits LUNGS: Clear to auscultation bilaterally. HEART: Regular rate and rhythm, no murmurs. BACK: No CVA tenderness or gross deformities. BREAST: deferred exam ABDOMEN: Abdomen soft, non-tender, no hepatosplenomegaly. Production Miner offered:Yes PROCEDURES: None ASSESSMENT: 63 yr old woman with complex adnexal cystic mass PLAN: We discussed the result of her US, I explained to her that this mass could be benign, borderline or malignant. We discussed treatment options and the plan was made to proceed with surgery. We discussed rationale, risks and benefits and consent signed. Will plan to do surgical staging if borderline tumor or cancer was found based on frozen section. Total face to face time 60 minutes and more that 50% spent on counseling the patient and coordinating her care. Thank you for referring her for gynecologic oncology consultation. I will be in touch with you regarding her findings. Sincerely, Bob Smith MD A letter and a copy of this office note were sent to: Patsy Lopez MD [address] [facility] [address] CC: Joelle Krishnamurthy MD (PCP) Deana Paez, RN, RN 11/25/2018 11:20 AM Signed Pt given surgical information packet and with # of surgical corsetier for Dr. Smith, [facility]. Pt to be scheduled @ [facility] for early December. Reviewed with pt to stop all NSAIDS and /or ASA/ASA like products 7-10 days prior to surgical date. Also instructed to schedule PAT as soon as surgery is scheduled. Pt verbalized understanding. Referring Provider: PATSY LOPEZ [[id number]] Allergies As of Date: 11/25/2018 (No Known Allergies) Date Reviewed: 11/25/2018 Reviewed by: Caterina Quintanilla Ma - Fully Assessed Reason for Visit: New Patient [172] Primary Visit Diagnosis:Generalize d abdominal or pelvic swelling or mass or lump [R19.07] Prescriptions as of 11/25/2018 Sig: METOPROLOL SUCCINATE ER 25 MG* Take by mouth. IBANDRONATE 150 MG TABLET Take 150 mg by mouth once alex* CHOLECALCIFEROL (VITAMIN D3) * Take by mouth. LORATADINE 10 MG CAPSULE Take by mouth. * CALCIUM CITRATE-VITAMIN D3 31* Take 1 tablet by mouth three * * OMEGA-3 FATTY ACIDS-VITAMIN E* Take 1 capsule by mouth. keshawn* * ASPIRIN 81 MG TABLET Take one (1) tablet daily . * PRESERVISION AREDS 14,320 UNI* Take one(1) tablet daily. Problem List As Of Date 11/25/2018 Noted Resolved Family history of malignant neoplasm of gastroi*INVALID FOR* More... Special screening for malignant neoplasms, colo*INVALID FOR* Benign neoplasm of rectum and anal canal [D12.8*INVALID FOR* Visit Notes: >> Deana (Rn) RUBIA Paez FriNov 25, 2018 11:14 AM Status: Signed Pt given surgical information packet and with # of surgical corsetier for Dr. Smith, [facility]. Pt to be scheduled @ [facility] for early December. Reviewed with pt to stop all NSAIDS and /or ASA/ASA like products 7-10 days prior to surgical date. Also instructed to schedule PAT as soon as surgery is scheduled. Pt verbalized understanding. Encounter Status:Closed by BOB SMITH MD on 11/30/18 Normal [facility] PROGRESSon 11-24-2018 PROGRESS HNO ID: [id number] Author: Bob Smith Service: ? Author Type: Physician Type: Progress Notes Filed: 11/30/2018 12:51 PM Note Text: Gynecologic Oncology [facility] Consultation Re: Yasmine Brunson CCF#: [id number] 11/25/[address] Patsy Lopez for an opinion regarding a left adnexal mass. My final recommendations will be communicated back to the requesting physician by way of shared Medical record or letter to requesting physician via US mail. Dear Patsy, Thank you for referring Yasmine for consultation. Briefly, she is a 63 year old female with a past medical history of osteoporosis, PVCs, and SVT (s/p ablation 1998). She presents today for evaluation and management of a left adnexal mass. She was admitted over the weekend at [facility] with an L1 vertebral compression fracture. Patient had an MRI of her lumbar spine on 11/15/2018, showing a 5.2 cm left ovarian cyst. She then had a pelvic US, showing a septated left adnexal cyst measuring 5 x 4.8 x 5 cm in size. The right ovary was not visible. Uterus measuring about 6x3x3 cm in size with 4mm EMS and a possible 1 cm calcified fibroid. CA 125: 12. She has been referred to [facility] for evaluation and management. PRIOR TREATMENT AND DATE: 1)N/A PATHOLOGY: IMAGIN11/15/2018 MRI - LUMBAR SPINE: OS, Care Everywhere IMPRESSION: 1. Acute 25% L1 compression deformity. 2. 5.2 cm LEFT ovarian cyst. Pelvic ultrasound is recommended promptly. 11/15/2018 US - PELVIS: OSH, care Everywhere IMPRESSION: Large 5.0 x 4.0 x 5.0 cm septated LEFT adnexal cyst. This is an indeterminate lesion with benign and malignant possibilities considered. Suggest surgical consultation. LABS: CA 125 (U/mL) Date Value 11/18/2018 12 HEALTH MAINTENANCE: Last pap:3 years ago, per patient Last mammogram: 12/12/17 - Normal Last colonoscopy: 2017 - Normal per patient HISTORIES: PAST GYNECOLOGIC HISTORY: OB History T2 L2 SAB0 TAB0 Ectopic0 Multiple0 Live Births2 Comment: x 2LMP: No LMP recorded. Patient is postmenopausal. Hormonal contraceptives: No. HRT use: No. History of abnormal pap: No. PAST SURGICAL HISTORY Procedure Laterality Date - APPENDECTOMY - COLONOSCOP W/ OR W/O [facility] SPEC 12/10/2005 Colonoscopy - COLONOSCOP W/ OR W/O [facility] SPEC 10/04/2011 Colonoscopy - DANDC 1985 Irregular periods - PAST SURGICAL HISTORY OF ABLATION THERAPY FOR SVT PAST MEDICAL HISTORY Diagnosis Date - Benign neoplasm of rectum and anal canal - Heart palpitations - Osteoporosis - Premature ventricular beat - SVT (supraventricular tachycardia) (HCC) FAMILY HISTORY Problem Relation Age of Onset - Colon Cancer Father - Diabetes Sister - Osteoporosis Mother - other (hypercholestryamine ) Mother - other (testicular cancer) Son Family history of breast, ovarian, uterine or colon cancer: Yes, father Family history of VTE: No SOCIAL HISTORY Social History Tobacco Use - Smoking status: Never Smoker - Smokeless tobacco: Never Used Substance Use Topics - Alcohol use: No - Drug use: Not Currently Occupation: Marital Status: Survivorship treatment summary initiated: No pathology at this time Joelle Hernandez RN REVIEW OF SYSTEMS: GENERAL: No recent weight loss, fever, chills, malaise or fatigue. HEENT: No changes in hearing or vision, frequent or severe headaches, nose bleeds or other nasal problems. NECK: No lumps, goiter, pain, significant neck swelling, or difficulty swallowing. RESPIRATORY: No shortness of breath, cough, wheezing, recent pneumonia (within last 6 weeks) or recent URI (within 2 weeks). CARDIOVASCULAR: SVT, s/p ablation 1998 BREAST: No breast lumps, skin changes, nipple discharge, or adenopathy. GI: Reports occasional constipation. No abdominal pain, nausea, vomiting, diarrhea. No prior history of esophageal varicies or ascites. Patient denies drinking >2 alcoholic beverages a day. : No dysuria, gross hematuria, urinary frequency, urinary urgency, or incontinence. No history of renal failure, dialysis, or recent UTI (<6 weeks). MUSCULOSKELETAL: No muscle weakness or joint pain. SKIN: No skin lesions, rashes, or itching. PSYCH: No sleep disturbances, depression, bipolar disorder, drug dependency/history of drug dependency, or recent psychosocial stressors. HEMATOLOGY/LYMPHOLOG Y: No prolonged bleeding, bruising easily, swollen nodes, or anemia. No prior history of a blood clot or clotting disorder. No prior history of a bleeding disorder. Not on chronic anticoagulant/platel et medications. ENDOCRINE: Reports hot flashes. No cold or heat intolerance, polyuria, polydipsia, polyphagia, goiter, or night sweats. No prior diagnosis of diabetes or thyroid disorder. No chronic steroid use. NEURO: No history of paralysis, stroke/TIA, seizures, tremors, syncope, or paresthesias. ECOG performance status is zero (fully active, able to carry on all pre-disease performance without restriction) OBJECTIVE: VITALS: BP 136/65 (BP Site: Left Arm, BP Position: Sitting, BP Cuff Size: Regular Adult) Pulse 63 Temp 36.5 ?C (97.7 ?F) (Oral) Ht 168.9 cm (5' 6.5) Wt 50.2 kg (110 lb 11.2 oz) BMI 17.60 kg/m? GENERAL: Patient is a well developed, well nourished female. She is alert, oriented, pleasant and cooperative. SKIN: Color, texture, turgor normal. No rashes or lesions. HEENT: Normocephalic, atraumatic, mucus membranes moist and no lesions NECK: Supple, no adenopathy; thyroid symmetric, normal size, no bruits LUNGS: Clear to auscultation bilaterally. HEART: Regular rate and rhythm, no murmurs. BACK: No CVA tenderness or gross deformities. BREAST: deferred exam ABDOMEN: Abdomen soft, non-tender, no hepatosplenomegaly. Production Miner offered:Yes PROCEDURES: None ASSESSMENT: 63 yr old woman with complex adnexal cystic mass PLAN: We discussed the result of her US, I explained to her that this mass could be benign, borderline or malignant. We discussed treatment options and the plan was made to proceed with surgery. We discussed rationale, risks and benefits and consent signed. Will plan to do surgical staging if borderline tumor or cancer was found based on frozen section. Total face to face time 60 minutes and more that 50% spent on counseling the patient and coordinating her care. Thank you for referring her for gynecologic oncology consultation. I will be in touch with you regarding her findings. Sincerely, Bob Smith MD A letter and a copy of this office note were sent to: Patsy Lopez MD [address] [facility] [address] CC: Joelle Krishnamurthy MD (PCP) [facility] .Auto Diffon 11-15-2018 Ammonia mass conc (P) 0.60 10 3/mcL Normal 0.09-1.40 [facility] ([place]) Comment on above: Performed By: #### B MP, GFR, CBC, ADIFF, ANEU #### [facility] [address] [place] [address] Basophils #/vol (Bld) 0.00 10 3/mcL Normal 0.00-0.27 [facility] ([place]) Comment on above: Performed By: #### B MP, GFR, CBC, ADIFF, ANEU #### [address] [address] Basophils/100 WBC (Bld) 0.3 % Normal 0.0-2.5 [facility] ([place]) Comment on above: Performed By: #### B MP, GFR, CBC, ADIFF, ANEU #### [address] [address] Eosinophils #/vol (Bld) 0.00 10 3/mcL Normal 0.00-0.65 [facility] ([place]) Comment on above: Performed By: #### B MP, GFR, CBC, ADIFF, ANEU #### [address] [address] Eosinophils/100 WBC (Bld) 0.4 % Normal 0.0-6.0 [facility] ([place]) Comment on above: Performed By: #### B MP, GFR, CBC, ADIFF, ANEU #### [address] [address] Lymphocytes #/vol (Bld) 2.40 10 3/mcL Normal 0.90-4.32 [facility] ([place]) Comment on above: Performed By: #### B MP, GFR, CBC, ADIFF, ANEU #### [address] [address] Lymphocytes/100 WBC (Bld) 22.4 % Normal 20.0-40.0 [facility] ([place]) Comment on above: Performed By: #### B MP, GFR, CBC, ADIFF, ANEU #### [address] [address] Monocytes/100 WBC (Bld) 6.0 % Normal 2.0-13.0 [facility] ([place]) Comment on above: Performed By: #### B MP, GFR, CBC, ADIFF, ANEU #### [address] [address] Neutrophils/100 WBC (Bld) 70.9 % Normal 50.0-75.0 [facility] ([place]) Comment on above: Performed By: #### B MP, GFR, CBC, ADIFF, ANEU #### [address] [address] .GFRon 11-15-2018 GFR >60 Normal [facility] ([place]) Comment on above: Result Comment: GFR Population mean for , Non- Americans Ages 20-29 = 116 mL/min/1.73 sq.m. Ages 30-39 = 107 mL/min/1.73 sq.m. Ages 40-49 = 99 mL/min/1.73 sq.m. Ages 50-59 = 93 mL/min/1.73 sq.m. Ages 60-69 = 85 mL/min/1.73 sq.m. Ages 70+ = 75 mL/min/1.73 sq.m. Chronic Kidney Disease: Less than 60 mL/min/1.73 square meters End Stage Renal Disease: Less than 15 mL/min/1.73 square meters Performed By: #### B MP, GFR, CBC, ADIFF, ANEU #### [place] [address] GFR Non- >60 Normal [facility] ([place]) Comment on above: Result Comment: GFR Population mean for , Non- Americans Ages 20-29 = 116 mL/min/1.73 sq.m. Ages 30-39 = 107 mL/min/1.73 sq.m. Ages 40-49 = 99 mL/min/1.73 sq.m. Ages 50-59 = 93 mL/min/1.73 sq.m. Ages 60-69 = 85 mL/min/1.73 sq.m. Ages 70+ = 75 mL/min/1.73 sq.m. Chronic Kidney Disease: Less than 60 mL/min/1.73 square meters End Stage Renal Disease: Less than 15 mL/min/1.73 square meters Performed By: #### B MP, GFR, CBC, ADIFF, ANEU #### [place] [address] .NEUABSon 11-15-2018 Neutrophils #/vol (Bld) 7.50 10 3/mcL Normal 2.25-8.10 [facility] ([place]) Comment on above: Performed By: #### C BC, ADIFF, ANEU, BMP, GFR #### [address] [address] BMPon 11-15-2018 Creatinine mass conc 0.76 mg/dL Normal 0.50-1.20 [facility] ([place]) Comment on above: Performed By: #### B MP, GFR, CBC, ADIFF, ANEU #### [place] [id number] Urea nitrogen/Creatinine mass ratio 11.8 ratio Normal 10.0-22.0 [facility] ([place]) Comment on above: Performed By: #### B MP, GFR, CBC, ADIFF, ANEU #### [place] [address] Calcium mass conc 8.6 mg/dL Normal 8.4-10.1 [facility] ([place]) Comment on above: Performed By: #### B MP, GFR, CBC, ADIFF, ANEU #### [place] [address] Chloride molar conc 106 mmol/L Normal 98-110 [facility] ([place]) Comment on above: Performed By: #### B MP, GFR, CBC, ADIFF, ANEU #### [place] [address] CO2 molar conc 25 mmol/L Normal 22-32 [facility] ([place]) Comment on above: Performed By: #### B MP, GFR, CBC, ADIFF, ANEU #### [place] [address] Electrolyte Balance 6.0 mEq/L Normal 4.0-15.0 [facility] ([place]) Comment on above: Performed By: #### B MP, GFR, CBC, ADIFF, ANEU #### [place] [address] Glucose mass conc 98 mg/dL Normal 82-115 [facility] ([place]) Comment on above: Performed By: #### B MP, GFR, CBC, ADIFF, ANEU #### [place] [id number] Potassium molar conc 4.0 mmol/L Normal 3.5-5.0 [facility] ([place]) Comment on above: Performed By: #### B MP, GFR, CBC, ADIFF, ANEU #### [place] [address] Sodium molar conc 137 mmol/L Normal 136-145 [facility] ([place]) Comment on above: Performed By: #### B MP, GFR, CBC, ADIFF, ANEU #### [place] [address] Urea nitrogen mass conc 9.0 mg/dL Normal 8.0-22.0 [facility] ([place]) Comment on above: Performed By: #### B MP, GFR, CBC, ADIFF, ANEU #### [place] [address] CBCon 11-15-2018 Erythrocyte distribution width Ratio (RBC) 13.0 % Normal 11.5-15.5 [facility] ([place]) Comment on above: Performed By: #### B MP, GFR, CBC, ADIFF, ANEU #### [place] [address] Hematocrit Volume Fraction (Bld) 33.9 % Low 34.0-46.0 [facility] ([place]) Comment on above: Performed By: #### B MP, GFR, CBC, ADIFF, ANEU #### [place] [address] Hemoglobin mass conc (Bld) 11.8 G/dL Low 12.0-16.0 [facility] ([place]) Comment on above: Performed By: #### B MP, GFR, CBC, ADIFF, ANEU #### [place] [address] MCH Entitic mass (RBC) 29.5 pg Normal 27.0-33.0 [facility] ([place]) Comment on above: Performed By: #### B MP, GFR, CBC, ADIFF, ANEU #### [place] [address] MCHC mass conc (RBC) 34.7 G/dL Normal 32.0-36.0 [facility] ([place]) Comment on above: Performed By: #### B MP, GFR, CBC, ADIFF, ANEU #### [place] [address] MCV Entitic volume (RBC) 84.8 fL Normal 80.0-99.0 [facility] ([place]) Comment on above: Performed By: #### B MP, GFR, CBC, ADIFF, ANEU #### [place] [address] Platelet mean volume Entitic volume (Bld) 8.1 fL Normal 6.6-10.5 [facility] ([place]) Comment on above: Performed By: #### B MP, GFR, CBC, ADIFF, ANEU #### [place] [address] Platelets #/vol (Bld) 229 10 3/mcL Normal 150-450 [facility] ([place]) Comment on above: Performed By: #### B MP, GFR, CBC, ADIFF, ANEU #### [place] [address] RBC #/vol (Bld) 3.99 10 6/mcL Low 4.10-5.30 [facility] ([place]) Comment on above: Performed By: #### B MP, GFR, CBC, ADIFF, ANEU #### [place] [address] WBC #/vol (Bld) 10.60 10 3/mcL Normal 4.50-10.80 [facility] ([place]) Comment on above: Performed By: #### B MP, GFR, CBC, ADIFF, ANEU #### [place] [address] MRI SPINE LUMBAR W/O CONTRAS Ton 11-15-2018 MRI SPINE LUMBAR W/O CONTRAST ORIGINAL Lumbar spine radiograph 11/14/2018 MRI SPINE LUMBAR W/O CONTRAST TECHNIQUE: Sagittal T2, T1 and STIR; axial T1 and T2 weighted images. Ordering Provider: MEEK FIGUEREDO CLINICAL STATEMENT: L1 compression deformity, to evaluate fracture acuity COMPARISON: Lumbar spine radiograph 11/14/2018 FINDINGS: For purposes of this dictation, it is assumed that there are 5 [id number], lumbar-type vertebrae, and the most caudal fully segmented lumbar vertebra is labeled L5. There is bone marrow edema associated with a superior endplate fracture of L1 and 25% vertebral height loss. There is minimal retropulsion measuring 2 mm; no significant associated spinal canal stenosis. Otherwise there is normal alignment and mildly heterogeneous marrow signal. Mild multilevel disc desiccation with minimal disc height loss noted. The conus medullaris terminates at a normal level and the nerve roots of the cauda equina appear normal. No spinal cord edema is visualized. There is a 5.2 cm LEFT ovarian cyst. T12-L1: Thin fracture line seen through the superior endplate of L1 with 25% compression and marrow edema. There is minimal 2 mm retropulsion of the fragment. No significant central canal stenosis or neural foraminal narrowing. L1-2: Mild ligamentum flavum hypertrophy noted. No spinal canal stenosis or neural foraminal narrowing. L2-3: Mild ligamentum flavum hypertrophy noted. No spinal canal stenosis or neural foraminal narrowing. L3-4: Ligamentum flavum hypertrophy and facet arthropathy noted. No spinal canal stenosis or neural foraminal narrowing. L4-5: Ligamentum flavum hypertrophy and facet arthropathy noted. No spinal canal stenosis or neural foraminal narrowing. L5-S1: Ligamentum flavum hypertrophy and facet arthropathy noted. No spinal canal stenosis or neural foraminal narrowing. IMPRESSION: 1. Acute 25% L1 compression deformity. 2. 5.2 cm LEFT ovarian cyst. Pelvic ultrasound is recommended promptly. I called these results staff in the [facility] at 2:15 PM. I have personally reviewed the images of this examination and agree with the resident's findings and interpretation. Interpreted By: Maycol Zarco Preliminary Report By: Esau Hill DO Electronically Signed By: Maycol Zarco Dictated Date: 11/15/2018 1:47:48 PM Prelim Date: 11/15/2018 1:58:29 PM Sign Date: 11/15/2018 2:13:40 PM Normal [facility] ([place]) [place] PELVIS NON-OB W/TRANSVAGI NALon 11-15-2018 US PELVIS NON-OB W/TRANSVAGINAL ORIGINAL US PELVIS NON-OB W/TRANSVAGINAL CLINICAL STATEMENT: left ovarian cyst on MRI. COMPARISON: MRI #11/15/2018 FINDINGS: There is a large septated LEFT adnexal cyst measuring 5.0 x 4.8 x 5.0 cm. Doppler assessment does not document any visible color flow within the cyst. The RIGHT ovary could not be seen. The uterus measures 6.4 x 3.8 x 3.2 cm with 4 mm endometrium. There is an echogenic focus in the posterior uterine body measuring about 1 cm diameter casting acoustic shadows likely representing a calcified fibroid. No free pelvic fluid is seen. IMPRESSION: Large 5.0 x 4.0 x 5.0 cm septated LEFT adnexal cyst. This is an indeterminate lesion with benign and malignant possibilities considered. Suggest surgical consultation. Recommendations for f/u of complex cysts1: Indeterminate cyst - multiple thin (<3 mm) septations: Any size in any age: Consider surgical evaluation. Indeterminate cyst - non-hyperechoic nodule w/o blood flow: Any size in any age: Consider MR w/IV contrast or surgical evaluation. Indeterminate cyst - other, not classic for but suggestive of hemorrhagic cyst, endometrioma or dermoid: Pre-menopause: < 7 cm: US f/u 6-12 weeks. If unchanged, continue f/u with US or consider MR w/IV contrast. If these do not confirm endometrioma or dermoid, consider surgical evaluation. >7 cm: Consider MR w/IV contrast or surgical evaluation. Post-menopause (1 year or more since last menstrual period): Any size: Consider surgical evaluation. Cyst worrisome for malignancy (thick, irregular septations >3 mm or nodule with blood flow): Any size in any age: Consider surgical evaluation. _ 1. Recommendations based upon the 2010 SRU Consensus Conference Statement on the Management of asymptomatic ovarian and adnexal cysts imaged at US. Radiology. 2009;256(3):943-54 \H\ \N\ Interpreted By: Arik Robin MD Preliminary Report By: Arik Robin MD Electronically Signed By: Arik Robin MD Dictated Date: 11/15/2018 5:14:01 PM Prelim Date: 11/15/2018 5:14:01 PM Sign Date: 11/15/2018 5:19:54 PM Normal [facility] ([place]) .Auto Diffon 11-14-2018 Ammonia mass conc (P) 0.40 10 3/mcL Normal 0.09-1.40 [facility] ([place]) Comment on above: Performed By: #### C BC, ADIFF, ANEU, BMP, GFR #### [address] [address] Basophils #/vol (Bld) 0.00 10 3/mcL Normal 0.00-0.27 [facility] ([place]) Comment on above: Performed By: #### C BC, ADIFF, ANEU, BMP, GFR #### [address] [address] Basophils/100 WBC (Bld) 0.1 % Normal 0.0-2.5 [facility] ([place]) Comment on above: Performed By: #### C BC, ADIFF, ANEU, BMP, GFR #### [address] [address] Eosinophils #/vol (Bld) 0.00 10 3/mcL Normal 0.00-0.65 [facility] ([place]) Comment on above: Performed By: #### C BC, ADIFF, ANEU, BMP, GFR #### [address] [address] Eosinophils/100 WBC (Bld) 0.0 % Normal 0.0-6.0 [facility] ([place]) Comment on above: Performed By: #### C BC, ADIFF, ANEU, BMP, GFR #### [address] [address] Lymphocytes #/vol (Bld) 1.00 10 3/mcL Normal 0.90-4.32 [facility] ([place]) Comment on above: Performed By: #### C BC, ADIFF, ANEU, BMP, GFR #### [address] [address] Lymphocytes/100 WBC (Bld) 6.0 % Low 20.0-40.0 [facility] ([place]) Comment on above: Performed By: #### C BC, ADIFF, ANEU, BMP, GFR #### [address] [address] Monocytes/100 WBC (Bld) 2.3 % Normal 2.0-13.0 [facility] ([place]) Comment on above: Performed By: #### C BC, ADIFF, ANEU, BMP, GFR #### [address] [address] Neutrophils/100 WBC (Bld) 91.6 % High 50.0-75.0 [facility] ([place]) Comment on above: Performed By: #### C BC, ADIFF, ANEU, BMP, GFR #### [address] [address] .GFRon 11-14-2018 GFR Non- >60 Normal [facility] ([place]) Comment on above: Result Comment: GFR Population mean for , Non- Americans Ages 20-29 = 116 mL/min/1.73 sq.m. Ages 30-39 = 107 mL/min/1.73 sq.m. Ages 40-49 = 99 mL/min/1.73 sq.m. Ages 50-59 = 93 mL/min/1.73 sq.m. Ages 60-69 = 85 mL/min/1.73 sq.m. Ages 70+ = 75 mL/min/1.73 sq.m. Chronic Kidney Disease: Less than 60 mL/min/1.73 square meters End Stage Renal Disease: Less than 15 mL/min/1.73 square meters Performed By: #### C BC, ADIFF, ANEU, BMP, GFR #### [address] [address] GFR >60 Normal [facility] ([place]) Comment on above: Result Comment: GFR Population mean for , Non- Americans Ages 20-29 = 116 mL/min/1.73 sq.m. Ages 30-39 = 107 mL/min/1.73 sq.m. Ages 40-49 = 99 mL/min/1.73 sq.m. Ages 50-59 = 93 mL/min/1.73 sq.m. Ages 60-69 = 85 mL/min/1.73 sq.m. Ages 70+ = 75 mL/min/1.73 sq.m. Chronic Kidney Disease: Less than 60 mL/min/1.73 square meters End Stage Renal Disease: Less than 15 mL/min/1.73 square meters Performed By: #### C BC, ADIFF, ANEU, BMP, GFR #### [place] [address] .NEUABSon 11-14-2018 Neutrophils #/vol (Bld) 15.90 10 3/mcL High 2.25-8.1 0 [facility] ([place]) Comment on above: Performed By: #### C BC, ADIFF, ANEU, BMP, GFR #### [place] [address] BMPon 11-14-2018 Calcium mass conc 8.5 mg/dL Normal 8.4-10.1 [facility] ([place]) Comment on above: Performed By: #### C BC, ADIFF, ANEU, BMP, GFR #### [place] [address] Chloride molar conc 106 mmol/L Normal 98-110 [facility] ([place]) Comment on above: Performed By: #### C BC, ADIFF, ANEU, BMP, GFR #### [place] [address] CO2 molar conc 24 mmol/L Normal 22-32 [facility] ([place]) Comment on above: Performed By: #### C BC, ADIFF, ANEU, BMP, GFR #### [place] [address] Creatinine mass conc 0.68 mg/dL Normal 0.50-1.20 [facility] ([place]) Comment on above: Performed By: #### C BC, ADIFF, ANEU, BMP, GFR #### [place] [address] Electrolyte Balance 10.0 mEq/L Normal 4.0-15.0 [facility] ([place]) Comment on above: Performed By: #### C BC, ADIFF, ANEU, BMP, GFR #### [place] [address] Glucose mass conc 135 mg/dL High 82-115 [facility] ([place]) Comment on above: Performed By: #### C BC, ADIFF, ANEU, BMP, GFR #### [place] [address] Potassium molar conc 4.1 mmol/L Normal 3.5-5.0 [facility] ([place]) Comment on above: Performed By: #### C BC, ADIFF, ANEU, BMP, GFR #### [place] [address] Sodium molar conc 140 mmol/L Normal 136-145 [facility] ([place]) Comment on above: Performed By: #### C BC, ADIFF, ANEU, BMP, GFR #### [place] [address] Urea nitrogen mass conc 14.0 mg/dL Normal 8.0-22.0 [facility] ([place]) Comment on above: Performed By: #### C BC, ADIFF, ANEU, BMP, GFR #### [place] [address] Urea nitrogen/Creatinine mass ratio 20.6 ratio Normal 10.0-22.0 [facility] ([place]) Comment on above: Performed By: #### C BC, ADIFF, ANEU, BMP, GFR #### [address] [address] CBCon 11-14-2018 Erythrocyte distribution width Ratio (RBC) 13.2 % Normal 11.5-15.5 [facility] ([place]) Comment on above: Performed By: #### C BC, ADIFF, ANEU, BMP, GFR #### [place] [address] Hematocrit Volume Fraction (Bld) 40.0 % Normal 34.0-46.0 [facility] ([place]) Comment on above: Performed By: #### C BC, ADIFF, ANEU, BMP, GFR #### [place] [id number] Hemoglobin mass conc (Bld) 13.3 G/dL Normal 12.0-16.0 [facility] ([place]) Comment on above: Performed By: #### C BC, ADIFF, ANEU, BMP, GFR #### [place] [address] MCH Entitic mass (RBC) 28.7 pg Normal 27.0-33.0 [facility] ([place]) Comment on above: Performed By: #### C BC, ADIFF, ANEU, BMP, GFR #### [place] [address] MCHC mass conc (RBC) 33.3 G/dL Normal 32.0-36.0 [facility] ([place]) Comment on above: Performed By: #### C BC, ADIFF, ANEU, BMP, GFR #### [place] [address] MCV Entitic volume (RBC) 86.2 fL Normal 80.0-99.0 [facility] ([place]) Comment on above: Performed By: #### C BC, ADIFF, ANEU, BMP, GFR #### [place] [address] Platelet mean volume Entitic volume (Bld) 8.0 fL Normal 6.6-10.5 [facility] ([place]) Comment on above: Performed By: #### C BC, ADIFF, ANEU, BMP, GFR #### [place] [address] Platelets #/vol (Bld) 268 10 3/mcL Normal 150-450 A [facility] ([place]) Comment on above: Performed By: #### C BC, ADIFF, ANEU, BMP, GFR #### [place] [address] RBC #/vol (Bld) 4.65 10 6/mcL Normal 4.10-5.30 [facility] ([place]) Comment on above: Performed By: #### C BC, ADIFF, ANEU, BMP, GFR #### [place] [address] WBC #/vol (Bld) 17.30 10 3/mcL High 4.50-10.80 [facility] ([place]) Comment on above: Performed By: #### C BC, ADIFF, ANEU, BMP, GFR #### [facility] [address] [place] [address] XR SPINE LUMBOSACRAL MINIMUM 4 VIEWSon 11-14-2018 XR SPINE LUMBOSACRAL MINIMUM 4 VIEWS ORIGINAL XR SPINE LUMBOSACRAL MINIMUM 4 VIEWS CLINICAL STATEMENT: back pain. COMPARISON: None FINDINGS: There is approximately 15% vertebral body height loss at L1. Vertebrae height is otherwise normal. There is no significant mild degenerative changes are visible in the lower lumbar spine. The sacroiliac joints are normal. The sacral alae are symmetric. IMPRESSION: 15% L1 compression deformity, suspected to be acute. Interpreted By: Maycol Zarco Preliminary Report By: Maycol Zarco Electronically Signed By: Maycol Zarco Dictated Date: 11/14/2018 9:59:28 AM Prelim Date: 11/14/2018 9:59:28 AM Sign Date: 11/14/2018 10:00:17 AM Normal [facility] ([place]) Vital Signs Date Time Vital Sign Value Performing Clinician Faci lity 07-28-2023 10:52-0500 Body height 170.[address] Joelle Krishnamurthy Work Phone: [facility] 07-28-2023 10:52-0500 Body mass index (BMI) [Ratio] 16.4 kg/m2 Dr. Joelle Krishnamurthy Work Phone: [facility] 07-28-2023 10:52-0500 Body weight 47.[address] Joelle Krishnamurthy Work Phone: [facility] 07-28-2023 10:52-0500 Diastolic blood pressure 78 mm[Hg] Dr. Joelle Krishnamurthy Work Phone: [facility] 07-28-2023 10:52-0500 Heart rate 70 /min Dr. Joelle Krishnamurthy Work Phone: [facility] 07-28-2023 10:52-0500 Respiratory rate 16 /min Dr. Joelle Krishnamurthy Work Phone: [facility] 07-28-2023 10:52-0500 Systolic blood pressure 122 mm[Hg] Dr. Joelle Krishnamurthy Work Phone: [facility] 06-26-2023 11:33-0500 Body height 170.[address] Joelle Krishnamurthy Work Phone: [facility] 06-26-2023 11:33-0500 Body mass index (BMI) [Ratio] 16.4 kg/m2 Dr. Joelle Krishnamurthy Work Phone: [facility] 06-26-2023 11:33-0500 Body weight 47.[address] Joelle Krishnamurthy Work Phone: [facility] 06-26-2023 11:33-0500 Diastolic blood pressure 58 mm[Hg] Dr. Joelle Krishnamurthy Work Phone: [facility] 06-26-2023 11:33-0500 Heart rate 70 /min Dr. Joelle Krishnamurthy Work Phone: [facility] 06-26-2023 11:33-0500 Respiratory rate 16 /min Dr. Joelle Krishnamurthy Work Phone: [facility] 06-26-2023 11:33-0500 Systolic blood pressure 124 mm[Hg] Dr. Joelle Krishnamurthy Work Phone: [facility] 04-07-2023 14:01-0400 Body height 170.18 cm [facility] 04-07-2023 14:01-0400 Body mass index (BMI) [Ratio] 17.2 kg/m2 [facility] 04-07-2023 14:01-0400 Body temperature 97.2 [degF] [facility] 04-07-2023 14:01-0400 Body weight 49.89 kg [facility] 04-07-2023 14:01-0400 Diastolic blood pressure 51 mm[Hg] [facility] 04-07-2023 14:01-0400 Heart rate 73 /min [facility] 04-07-2023 14:01-0400 Respiratory rate 16 /min [facility] 04-07-2023 14:01-0400 SaO2% (BldA) [Mass fraction] 99 % [facility] 04-07-2023 14:01-0400 Systolic blood pressure 130 mm[Hg] [facility] 12-06-2022 13:16-0400 Body height 170.[address] Joelle Krishnamurthy Work Phone: [facility] 12-06-2022 13:16-0400 Body mass index (BMI) [Ratio] 16.5 kg/m2 Dr. Joelle Krishnamurthy Work Phone: [facility] 12-06-2022 13:16-0400 Body temperature 98.2 [degF] Dr. Joelle Krishnamurthy Work Phone: [facility] 12-06-2022 13:16-0400 Body weight 47.[address] Joelle Krishnamurthy Work Phone: [facility] 12-06-2022 13:16-0400 Diastolic blood pressure 86 mm[Hg] Dr. Joelle Krishnamurthy Work Phone: [facility] 12-06-2022 13:16-0400 Heart rate 70 /min Dr. Joelle Krishnamurthy Work Phone: [facility] 12-06-2022 13:16-0400 Respiratory rate 16 /min Dr. Joelle Krishnamurthy Work Phone: [facility] 12-06-2022 13:16-0400 SaO2% (BldA) [Mass fraction] 97 % Dr. Joelle Krishnamurthy Work Phone: [facility] 12-06-2022 13:16-0400 Systolic blood pressure 107 mm[Hg] Dr. Joelle Krishnamurthy Work Phone: [facility] 01-07-2022 13:04-0400 Body height 170.[address] Joelle Krishnamurthy Work Phone: [facility] Work Phone: 01-07-2022 13:04-0400 Body mass index (BMI) [Ratio] 17.2 kg/m2 Dr. Joelle Krishnamurthy Work Phone: [facility] Work Phone: 01-07-2022 13:04-0400 Body weight 49.[address] Joelle Krishnamurthy Work Phone: [facility] Work Phone: 01-07-2022 13:04-0400 Diastolic blood pressure 60 mm[Hg] Dr. Joelle Krishnamurthy Work Phone: [facility] Work Phone: 01-07-2022 13:04-0400 Heart rate 80 /min Dr. Joelle Krishnamurthy Work Phone: [facility] Work Phone: 01-07-2022 13:04-0400 Respiratory rate 16 /min Dr. Joelle Krishnamurthy Work Phone: [facility] Work Phone: 01-07-2022 13:04-0400 Systolic blood pressure 140 mm[Hg] Dr. Joelle Krishnamurthy Work Phone: [facility] Work Phone: 10-15-2021 15:06-0400 Body temperature 97.8 [degF] Dr. Joelle Krishnamurthy Work Phone: [facility] Work Phone: 10-15-2021 15:06-0400 Diastolic blood pressure 62 mm[Hg] Dr. Joelle Krishnamurthy Work Phone: [facility] Work Phone: 10-15-2021 15:06-0400 Heart rate 71 /min Dr. Joelle Krishnamurthy Work Phone: [facility] Work Phone: 10-15-2021 15:06-0400 Respiratory rate 16 /min Dr. Joelle Krishnamurhty Work Phone: [facility] Work Phone: 10-15-2021 15:06-0400 SaO2% (BldA) [Mass fraction] 95 % Dr. Joelle Krishnamurthy Work Phone: [facility] Work Phone: 10-15-2021 15:06-0400 Systolic blood pressure 120 mm[Hg] Dr. Joelle Krishnamurthy Work Phone: [facility] Work Phone: Encounters Encounter Date Encounter Type Care Provider Facility Start: 10-04-2024 End: 10-04-2024 ambulatory Joelle S Yessy Facility:[facility] Start: 06-25-2024 End: 06-25-2024 ambulatory Joelle S Yessy Facility:[facility] Start: 06-21-2024 End: 06-21-2024 ambulatory Joelle S Yessy Facility:[facility] Start: 06-02-2024 End: 06-02-2024 ambulatory Maycol Leal Facility:[facility] Start: 04-08-2024 End: 04-08-2024 ambulatory Joelle S Jollradha Facility:[facility] Start: 01-19-2024 End: 01-19-2024 ambulatory Joelle S Jolliff Facility:[facility] Start: 12-08-2023 End: 12-08-2023 ambulatory Sal Alexis Facility:[facility] Start: 12-05-2023 End: 12-05-2023 ambulatory Joelle S Jojuliethiff Facility:[facility] Start: 11-11-2023 End: 11-11-2023 ambulatory Maycol Leal Facility:[facility] Start: 10-07-2023 End: 10-07-2023 ambulatory Joelle S Jolliff Facility:[facility] Start: 08-11-2023 End: 08-11-[address] Joelle Krishnamurthy Work Phone: [facility] Work Phone: Start: 08-11-2023 End: 08-11-[address] Joelle Krishnamurthy Work Phone: [facility]/Neurology Work Phone: Start: 07-28-2023 End: 07-28-[address] Joelle Krishnamurthy Work Phone: [facility] Work Phone: Start: 07-24-2023 Non-patient / Non-visit Dr. Joelle Krishnamurthy Work Phone: [facility] Work Phone: Start: 07-24-2023 Non-patient / Non-visit Dr. Joelle Krishnamurthy Work Phone: [facility] Start: 07-24-2023 End: 07-24-[address] Joelle Krishnamurthy Work Phone: [facility] Work Phone: Start: 07-24-2023 End: 07-24-[address] [facility] Start: 06-26-2023 End: 06-26-[address] Joelle Krishnamurthy Work Phone: [facility] Work Phone: Start: 06-23-2023 End: 06-23-[address] Joelle Krishnamurthy Work Phone: [facility] Work Phone: Start: 06-23-2023 End: 06-23-[address] Joelle Krishnamurthy Work Phone: [facility]Outpatient Breast Imaging Work Phone: Start: 05-26-2023 End: 05-26-[address] Joelle Krishnamurthy Work Phone: [facility] Work Phone: Start: 05-26-2023 End: 05-26-[address] Joelle Krishnamurthy [facility] Work Phone: Start: 05-01-2023 End: 05-01-[address] Joelle Krishnamurthy Work Phone: [facility] Work Phone: Start: 05-01-2023 End: 05-01-[address] Joelle Krishnamurthy Work Phone: [facility]Laboratory Work Phone: Start: 04-12-2023 End: 04-12-[address] Joelle Krishnamurthy Work Phone: [facility] Work Phone: Start: 04-07-2023 End: 04-07-2023 ambulatory [facility] Work Phone: Start: 04-07-2023 End: 04-07-2023 Patient encounter procedure [facility] Work Phone: Start: 12-06-2022 End: 12-06-[address] Joelle Krishnamurthy Work Phone: [facility] Work Phone: Start: 12-06-2022 End: 12-06-[address] Joelle Krishnamurthy Work Phone: [facility] Work Phone: Start: 07-29-2022 End: 07-29-2022 ambulatory [facility] Work Phone: Start: 07-29-2022 End: 07-29-2022 Patient encounter procedure [facility] Start: 07-01-2022 End: 07-01-2022 ambulatory [facility] Work Phone: Start: 07-01-2022 End: 07-01-2022 Patient encounter procedure [facility], [facility] Start: 05-13-2022 End: 05-13-2022 Patient encounter procedure [facility] Start: 01-11-2022 End: 01-11-[address] Joelle Krishnamurthy Work Phone: [facility] Start: 01-07-2022 End: 01-07-[address] Joelle Krishnamurthy Work Phone: [facility] Start: 10-15-2021 End: 10-15-[address] Joelle Krishnamurthy Work Phone: [facility] Procedures Date Procedure Procedure Detail Performing Clinician Start: 06-23-2023 Screening mammography Josh Krishnamurthy Work Phone: Start: 05-26-2023 Plain chest X-ray Dr. Yang Krishnamurthy Work Phone: Start: 05-13-2022 Screening mammography Plan of Treatment Date Care Activity Detail Author [facility] Immunizations Immunization Date Immunization Notes Care Provider Fa denzel 04-12-2023 influenza, injectabl e, quadrivalent, preservative free Dr. Joelle Krishnamurthy Work Phone: [facility] 03-27-2020 influenza, injectabl e, quadrivalent, preservative free [facility] 03-27-2020 influenza, seasonal, injectable Dr. Joelle Krishnamurthy Work Phone: [facility] 03-10-2014 influenza, injectabl e, quadrivalent, preservative free [facility] 03-10-2014 influenza, seasonal, injectable Dr. Joelle Krishnamurthy Work Phone: [facility] 04-15-[address] Joelle Krishnamurthy Work Phone: [facility] Payers Date Payer Category Payer Self-pay [id number] 2022 Medicare [id number] Private Health Insurance [id number] Unknown [id number] [id number] [id number] Unknown [id number] 2.16.8 [id number] Unknown [id number] 2.16.8 [id number] Unknown [id number] 2.16.8 [id number] Unknown [id number] 2.16.8 [id number] Unknown [id number] 2.16.8 [id number] Unknown [id number] 2.16.8 [id number] Unknown [id number] 2.16.8 [id number] Unknown [id number] 2.16.8 [id number] Unknown [id number] 2.16.8 [id number] Social History Date Type Detail Facility Start: 01-07-2022 End: 04-12-2023 Tobacco smoking status NHIS Unknown if ever smoked [facility] Start: 1955 Sex Assigned At Female [facility] Mental Status Date Assessment Result Facility 04-07-2023 Cognitive function Awake;Alert;A ppropriate;Fol lows Commands [facility] Work Phone: Progress note 03-29-2021 Note Date & Type Note Facility 03-29-2021 Note HNO ID: [id number] Author: Devonte Romero MD Service: ? Author Type: Physician Type: Progress Notes Filed: 03/29/2021 8:34 PM Note Text: PRIMARY CARE PHYSICIAN: Joelle Krishnamurthy MD ([facility]) [address] [place] [address] REFERRING PHYSICIAN: David Lo MD ([facility]) [address] [facility] [address] Patient Care Team: Joelle Krishnamurthy as PCP - General David Lo as Specialty Retail Support Specialist (Cardiology) Marisela Garvey MD as Specialty Retail Support Specialist (Endocrinology) CHIEF COMPLAINT: Evaluation of arrhythmia HISTORY OF PRESENT ILLNESS: Ms. Brunson is a 66 year old female who presents today with her for evaluation of arrhythmia. She has a prior history of supraventricular tachycardia (SVT) and underwent successful catheter ablation in 1998 at [facility]. Those records are not available and she [...] discontinued and treatment with a calcium channel stephenie (diltiazem) was initiated. She has only been [...] ablation for SVT, likely RF catheter ablation; [facility] SOCIAL HISTORY Social History Tobacco Use - [...] No edema. Sk (more content not included)... [facility] Evaluation note 11-14-1998 Note Date & Type Note Facility 11-14-1998 Evaluation note Diagnosis Onset Date Mixed hyperlipidemia chronic Palpitations chronic SVT (supraventricular tachycardia) chronic History of cardiac radiofreq uency ablation November, resolved [facility] Work Phone: Evaluation note 11-14-1998 Note Date & Type Note Facility 11-14-1998 Evaluation note Diagnosis Onset Date Mixed hyperlipidemia chronic Palpitations chronic SVT (supraventricular tachycardia) chronic History of cardiac radiofreq uency ablation November, resolved Palpitations chronic SVT (supraventricular tachycardia) [facility] Work Phone: Evaluation note Note Date & Type Note Facility Evaluation note Diagnosis Onset Date Contact with or suspected ex posure to other viral communicable disease acute Mixed hyperlipidemia chronic Palpitations chronic Premature ventricular contraction chronic SVT (supraventricular tachycardia) [facility] Work Phone: Evaluation note Note Date & Type Note Facility Evaluation note Diagnosis Onset Date Mixed hyperlipidemia chronic Palpitations chronic Premature ventricular contraction chronic SVT (supraventricular tachycardia) [facility] Work Phone: Evaluation note Note Date & Type Note Facility Evaluation note No assessment information availa [facility] Work Phone: Summary Purpose Family History No Family History Records Found Relationship Condition Age at Onset Recorded Date/T azucena sister Diabetes mellitus Unknown father Malignant neoplasm of colon Unknown Aortic valve stenosis Unknown Atrial fibrillation Unknown mother Hyperlipidemia Unknown Relationship Condition Age at Onset Recorded Date/T azucena sister Diabetes mellitus Unknown father Malignant neoplasm of colon Unknown Aortic valve stenosis Unknown Atrial fibrillation Unknown mother Hyperlipidemia Unknown Osteoporosis Unknown brother Multiple myeloma Unknown Advance Directives No Advanced Directives Records FoundNo Advanced Directives Records FoundNo Advanced Directives Records FoundNo Advanced Directives Records Found Chief Complaint and Reason for Visit Chief Complaint PCR COVID/EXPOSURE 1 y fu E ORDERS Reason for Visit Contact with or susp ected exposure to other viral communicable disease Mixed hyperlipidemia Palpitations Premature ventricular contraction SVT (supraventricular tachycardia) Chief Complaint 1 y fu E ORDERS Reason for Visit Mixed hyperlipidemia Palpitations Premature ventricular contraction SVT (supraventricular tachycardia) Chief Complaint SCREENING Chief Complaint SCREENING EORDER Chief Complaint Osteoporosis E ORDERS Chief Complaint PROLIA Chief Complaint PROLIA FLU VACCINE E ORDERS/MOODISPAW Chief Complaint PROLIA FLU VACCINE E ORDERS/MOODISPAW SCREENING 1 y fu PREV PFM PT Reason for Visit Mixed hyperlipidemia Palpitations SVT (supraventricular tachycardia) History of cardiac radiofrequency ablation Chief Complaint PROLIA FLU VACCINE E ORDERS/MOODISPAW SCREENING 1 y fu PREV PFM PT Supraventricular tachycardia, unspecified Amb Documentation FU PER MH / ECHO RESULTS Reason for Visit Mixed hyperlipidemia Palpitations SVT (supraventricular tachycardia) History of cardiac radiofrequency ablation Palpitations SVT (supraventricular tachycardia) Chief Complaint E ORDERS/MOODISPAW SCREENING 1 y fu PREV PFM PT Supraventricular tachycardia, unspecified Amb Documentation FU PER MH / ECHO RESULTS FABIEN MOBILE DETECTED AFIB Reason for Visit Mixed hyperlipidemia Palpitations SVT (supraventricular tachycardia) History of cardiac radiofrequency ablation Palpitations SVT (supraventricular tachycardia) Additional Source Comments INFORMATION SOURCE (unrecogn ized section and content) DATE CREATED AUTHOR 11/23/2018 [facility] ([place]) DATE CREATED AUTHOR AUTHOR'S ORGANIZ ATION 12/10/2018 [facility] DATE CREATED AUTHOR AUTHOR'S ORGANIZ ATION 03/30/2021 [facility] DATE CREATED AUTHOR AUTHOR'S ORGANIZ ATION 10/04/2024 [facility] Goals (unrecognized section and content) Goals may be documented in a n alternate sectionGoals may be documented in an alternate sectionGoals may be documented in an alternate sectionGoals may be documented in an alternate sectionGoals may be documented in an alternate sectionGoals may be documented in an alternate sectionGoals may be documented in an alternate sectionGoals may be documented in an alternate sectionGoals may be documented in an alternate sectionGoals may be documented in an alternate sectionGoals may be documented in an alternate section Care Teams (unrecognized sec tion and content) Team Status: Active Member Role Status Dates Dr. Joelle Krishnamurthy MD Family Provider Active Dr. Joelle Krishnamurthy MD Primary Care Provider Active Team Status: Inactive Member Role Status Dates Dr. Joelle Krishnamurthy MD Primary Care Prov ider, Attending Provider, Referring Provider Active Team Status: Inactive Member Role Status Dates Dr. Joelle Krishnamurthy MD Primary Care Provider, Attendin g Provider Active Team Status: Inactive Member Role Status Dates Dr. Joelle Krishnamurthy MD Primary Care Provider Active Dr. David Lo MD Attending Provider, Referring Provider Active Team Status: Inactive Member Role Status Dates Dr. Joelle Krishnamurthy MD Primary Care Provider, Referrin g Provider Active Dr. Sal Alexis MD Attending Provider Active Team Status: Inactive Member Role Status Dates Dr. Joelle Krishnamurthy MD Primary Care Provider Active Dr. Sal Alexis MD Attending Provider, Referring Provi angela Active Team Status: Inactive Member Role Status Dates Dr. Joelle Krishnamurthy MD Primary Care Provider, Referrin g Provider Active CINDY Anthony Attending Provider Active Team Status: Inactive Member Role Status Dates Dr. Joelle Krishnamurthy MD Primary Care Provider Active Walter Park BIOANALYST, BIOANALYST-C Attending Provider, Referring Pro vider Active Team Status: Inactive Member Role Status Dates Dr. Joelle Krishnamurthy MD Primary Care Provider, Referrin g Provider Active Dr. David Lo MD Active Dr. Maycol Leal MD Attending Provider Active Team Status: Inactive Member Role Status Dates Dr. Joelle Krishnamurthy MD Primary Care Provider, Referrin g Provider Active Dr. Maycol Leal MD Attending Provider Active Team Status: Active Member Role Status Dates Dr. Joelle Krishnamurthy MD Primary Care Provider Active Dr. Yee Cavazos MD Attending Provider Active Team Status: Active Member Role Status Dates Dr. Joelle Krishnamurthy MD Primary Care Provider Active Joelle Soni BIOANALYST, BIOANALYST-C Attending Provider Active Team Status: Inactive Member Role Status Dates Dr. Joelle Krishnamurthy MD Primary Care Provider Active Dr. Maycol Leal MD Attending Provider, Referring Provider Active FOR RECORDS PERTAINING TO PATIENTS WHO ARE [...] BE BASED ON THE PRIMARY CLINICAL RECORDS. [employer] provides no warranty or guarantee of the accuracy or completeness of information in this document.
[2024-12-01 07:45] LABS: Absolute Lymphocyte Count 2.92 X10^3/uL (0.83-4.51); Absolute Neutrophil Count 3.1 X10^3/uL (2.0-7.7); Basophil# 0.04 X10^3/uL; Basophil% 0.6 % (0-1); Eosinophil# 0.09 X10^3/uL; Eosinophils% 1.4 % (0-5); Hematocrit 38.2 % (37-47); Lymphocyte # 2.92 X10^3/ul (0.83-4.51); Lymphocyte % 44.3 % (19-41); Mean Corpuscular Volume 85.1 fL (81-99); Mean Platelet Vol. 8.7 fl (6.2-12.0); Monocyte# 0.44 X10^3/uL; Monocyte% 6.7 % (0-10); NRBC Flagged by Analyzer 0 % (0-5); Neutrophil # 3.08 X10^3/uL (2.7-7.7); Neutrophil % 46.7 % (47-70); Platelet Count 328 K/mm3 (150-450); RBC Distribution Width CV 12.4 % (11.6-14.6); RBC Distribution Width SD 38.6 fl (35.1-43.9); Red Blood Count 4.49 M/mm3 (4.2-5.4); White Blood Count 6.6 K/mm3 (4.4-11.0)
[2024-12-01 08:38] LABS: Magnesium 1.9 mg/dL (1.5-2.2)
[2024-12-01 10:13] LABS: ALB/GLOB Ratio 1.5 RATIO (0.9-2.4); AST(SGOT) 20 U/L (<=31); Alanine Aminotransfer ALT/SGPT 13 U/L (<=34); Albumin, Serum 4.2 g/dL (3.4-4.8); Alkaline Phosphatase 72 U/L (35-104); Anion Gap 12 (5-15); BUN 12 mg/dL (4-19); BUN/Creat Ratio 17.6 RATIO (10-20); Bilirubin, Direct 0.14 mg/dL (0.00-0.30); Carbon Dioxide 23.1 mmol/L (21.0-32.0); Chloride 105 mmol/L (98-108); Cholesterol 162 mg/dL (<=200); Creatinine, Serum 0.69 mg/dL (0.70-1.20); EST Glomerular Filtration Rate 93 (>60); Globulin 2.7 g/dL (2.2-4.2); Glucose 101 mg/dL (70-99); High Density Lipoprotein 68 mg/dL; Low Density Lipoprotein Calc. 84 mg/dL; Potassium 3.7 mmol/L (3.3-5.1); Protein, Total 6.9 g/dL (5.9-8.4); Sodium Level 140 mmol/L (133-145); Triglycerides 50 mg/dL; Very Low Density Lipoprotein 10 mg/dL (5-40); Vitamin D,25 Hydroxy 49.6 ng/mL (30-100); cholesterol:hdl ratio screen 2.38
== END | disposition home or self-care (01) ==
LOC: LAB 07:18
PROVIDERS: Nurse Practitioner Family; PCP Family Medicine; Referring Provider Internal Medicine Endocrinology, Diabetes & Metabolism; Visit Provider Internal Medicine Endocrinology, Diabetes & Metabolism
DX: I47.10 Supraventricular tachycardia, unspecified (principal); R00.2 Palpitations; I49.3 Ventricular premature depolarization; E78.2 Mixed hyperlipidemia; M81.0 Age-related osteoporosis without current pathological fracture; Z98.890 Other specified postprocedural states
CPT/HCPCS: 80053; 80061; 82248; 82306; 83735; 84439; 84443; 85025

== ENCOUNTER → 2025-03-09 | Outpatient (CLI) | payer MEDICARE, SELFPAY ==
--- OUTSIDE RECORDS SUMMARY | 2025-03-09 06:59 | XMS RPT_ITS | CCD ---
Author Organization [facility] Care Team Providers Care Acquisition Professional Name Role Phone Dr. Joelle Krishnamurthy Primary Care Provider Dr. Joelle Krishnamurthy Referring Provider [phone] CINDY Simon Attending Provider Dr. David Lo Attending Provider Dr. Joelle Krishnamurthy Primary Care Provider Dr. Joelle Krishnamurthy Referring Provider Dr. David Lo Attending Provider Dr. Joelle Krishnamurthy Primary Care Provider Dr. Joelle Krishnamurthy Referring Provider Dr. Sal Alexis Attending Provider Dr. Joelle Krishnamurthy Primary Care Provider Dr. Joelle Krishnamurthy Referring Provider CINDY Ramirez Attending Provider Dr. Maycol Leal Attending Provider Dr. Yee Cavazos Attending Provider Zachariah HYDE, JENISE Lai Attending Provider Dr. Joelle Krishnamurthy Primary Care Provider Dr. Joelle Krishnamurthy Referring Provider Dr. Joelle Krishnamurthy MD Primary Care Provider Dr. Joelle Krishnamurthy MD Referring Provider Dr. Sal Alexis MD Attending Provider Dr. Sal Alexis MD Referring Provider Roof HYDROTEL OPERATOR-C, Walter Mazariegos Other Provider Yessy FLORES, Dr. Joelle Beebe Primary Care Provider [phone] King SANDRA, Dr. Huang Attending Provider Dr. Joelle Krishnamurthy MD Referring Provider Roof HYDROTEL OPERATOR-C, Walter Mazariegos Attending Provider Jolliff, Joelle S Primary Care Unavailable Jolliff, Joelle S Attending Unavailable Jolliff, Joelle S Referring Unavailable Sal Alexis Attending Unavailable Sal Alexis Referring Unavailable Jolliff, Joelle S Primary Care Unavailable Roof HYDROTEL OPERATOR, Walter Mazariegos Consulting Unavailable Roof HYDROTEL OPERATOR, Walter Mazariegos Attending Unavailable Jolliff, Joelle S Primary Care Unavailable Jolliff, Joelle S Referring Unavailable ReubenSal Attending Unavailable Jolliff, Joelle S Primary Care Unavailable Jolliff, Joelle S Referring Unavailable Jolliff, Joelle S Referring Unavailable Jolliff, Joelle S Primary Care Unavailable Roof HYDROTEL OPERATOR, Walter Mazariegos Attending Unavailable Jolliff, Joelle S Referring Unavailable Jolliff, Joelle S Primary Care Unavailable Roof HYDROTEL OPERATOR, Walter Mazariegos Attending Unavailable Jolliff, Joelle S Primary Care Unavailable Sal Alexis Attending Unavailable Jolliff, Joelle S Referring Unavailable Jolliff, Joelle S Primary Care Unavailable Maycol Leal Attending Unavailable Maycol Leal Referring Unavailable Medications Current Medications Medication Drug Class(es) Dates Sig (Normalized) Sig (Original) ascorbic acid 500 mg oral capsule (3 sources) Vitamin C Start: 10-04-2024 End: 02-08-2025 take 1 capsule by mouth once daily Ascorbic Acid (Vitamin C) 500 mg capsule Active 500 mg PO daily February 08, 2025 8:33am calcium citrate 1500 mg / cholecalciferol 200 unt oral tablet (20 sources) Vitamin D Start: 03-26-2018 Calcium Citrate-Vitamin D3 (Calcium Citrate + D) 315-200 mg-unit tablet Active 1 {tbl} PO DAILY March 26, 2018 12:00am Start: 03-25-2018 End: 03-26-2018 Calcium Citrate-Vitamin D3 2 00 mg calcium -250 unit tablet Discontinued 1 {tbl} PO DAILY March 25, 2018 12:00am March 26, 2018 3:04pm Start: 03-25-2018 End: 03-26-2018 take 1 tablet by mouth once daily Calcium Citrate-Vitamin D3 Discontinued 1 TABLET PO DAILY March 24, 2018 11:00pm March 26, 2018 2:04pm cholecalciferol 0.05 mg oral capsule (13 sources) Vitamin D Start: 01-10-2020 take 1 capsule by mouth once daily Cholecalciferol (Vitamin D3) 50 mcg (2,000 unit) capsule Active 50 ug PO DAILY January 10, 2020 12:00am 1 ml denosumab 60 mg/ml prefilled syringe (8 sources) RANK Ligand Inhibitor Start: 02-27-2023 Denosumab (Prolia) 60 mg/mL syringe Active 60 mg SC every 6 months 06 16February 27, 2023 12:00am 24 hr dilTIAZem hydrochloride 120 mg extended release oral capsule (20 sources) Calcium Channel Stephenie Start: 12-05-2023 End: 01-18-2025 take 1 capsule by mouth once daily in the morning Diltiazem Hcl 120 mg capsule,extended release 24hr Active 120 mg PO EVERY MORNING 90 3 January 18, 2025 9:06am Start: 09-03-2023 End: 12-05-2023 take 1 capsule by mouth twice daily Diltiazem Hcl 120 mg capsule,extended release 24hr Discontinued 120 mg PO TWICE A DAY 180 3 September 03, 2023 3:36pm December 05, 2023 2:01pm Start: 08-01-2023 End: 09-03-2023 take 1 capsule by mouth once daily Diltiazem Hcl 120 mg capsule,extended release 24hr Discontinued 120 mg PO DAILY August 01, 2023 1:00am September 03, 2023 3:37pm Start: 03-26-2021 End: 07-28-2023 Diltiazem Hcl 120 mg capsule ,extended release 24hr Discontinued 0 .ROUTE .COMPLEX 90 3 June 02, 2023 4:55pm July 28, 2023 12:21pm TAKE 1 CAPSULE DAILY magnesium oxide 250 mg oral tablet (1 source) Start: 02-08-2025 take 1 tablet by mouth once daily Magnesium Oxide 250 mg magnesium tablet Active 250 mg PO daily February 08, 2025 12:00am Completed/Discontinued Medications Medication Drug Class(es) Dates Sig (Normalized) Sig (Original) apixaban 5 mg oral tablet (8 sources) Factor Xa Inhibitor Start: 08-01-2023 End: 08-12-2024 take 1 tablet by mouth twice daily Apixaban (Eliquis) 5 mg tablet Discontinued 5 mg PO TWICE A DAY 60 August 12, 2023 11:03am August 12, 2024 10:07am aspirin 81 mg delayed release oral tablet (13 sources) Platelet Aggregation Inhibitor, Nonsteroidal Anti-inflammatory Drug Start: 03-25-2018 End: 08-01-2023 take 1 tablet by mouth once daily Aspirin 81 mg tablet,delayed release (DR/EC) Discontinued 81 mg PO DAILY March 25, 2018 12:00am August 01, 2023 12:27pm atorvastatin 10 mg oral tablet (20 sources) HMG-CoA Reductase Inhibitor Start: 01-12-2019 End: 06-10-2024 take 1 tablet by mouth once daily Atorvastatin (Lipitor) 10 mg tablet Discontinued 10 mg PO DAILY 90 3 June 23, 2023 9:25am June 10, 2024 9:39am famotidine 20 mg oral tablet (13 sources) Histamine-2 Receptor Antagonist Start: 03-25-2018 End: 03-26-2018 take 1 tablet by mouth once daily Famotidine (Pepcid) 20 mg tablet Discontinued 20 mg PO DAILY March 25, 2018 12:00am March 26, 2018 3:05pm ibandronic acid 150 mg oral tablet (20 sources) Bisphosphonate Start: 07-16-2018 End: 01-08-2021 take 1 tablet by mouth every month Ibandronate (Boniva) 150 mg tablet Discontinued 150 mg PO EVERY MONTH July 16, 2018 1:00am January 08, 2021 10:32am Start: 03-25-2018 End: 03-26-2018 take 1 tablet by mouth every month Ibandronate (Boniva) 150 mg tablet Discontinued 150 mg PO EVERY MONTH March 25, 2018 12:00am March 26, 2018 3:05pm Lactobacillus Combination No.9 (Adult 50 Plus Probiotic) 4 billion cell capsule (13 sources) Start: 01-07-2022 End: 02-08-2025 take 4 capsules by mouth once daily Lactobacillus Combination No.9 (Adult 50 Plus Probiotic) 4 billion cell capsule Discontinued 4000 NMA PO DAILY January 07, 2022 12:00am February 08, 2025 8:33am administer with a meal Start: 01-07-2022 take 4 capsules by m outh once daily Lactobacillus Combination No.9 (Adult 50 Plus Probiotic) 4 billion cell capsule Active 4000 NMA PO DAILY January 07, 2022 12:00am administer with a meal Start: 01-07-2022 take [...] 07, 2022 12:00am administer with a meal 24 hr metoprolol succinate 50 mg extended release oral tablet (20 sources) beta-Adrenergic Stephenie Start: 01-08-2021 End: 03-26-2021 take 1 tablet by mouth once daily Metoprolol Succinate 50 mg tablet extended release 24 hr Discontinued 50 mg PO DAILY 90 3 January 16, 2021 12:10pm March 26, 2021 2:51pm Start: 07-15-2019 End: 01-08-2021 take 1 tablet by mouth once daily Metoprolol Succinate (Toprol Xl) 25 mg tablet extended release 24 hr Discontinued 25 mg PO DAILY 90 3 September 18, 2020 4:19pm January 08, 2021 11:03am Start: 05-31-2019 End: 07-15-2019 take 2 tablets by mouth once daily Metoprolol Succinate (Toprol Xl) 25 mg tablet extended release 24 hr Discontinued 12.5 mg PO DAILY 45 3 July 13, 2019 3:45pm July 15, 2019 7:11pm Start: 04-09-2018 End: 05-31-2019 take 1 tablet by mouth once daily Metoprolol Succinate (Toprol Xl) 25 mg tablet extended release 24 hr Discontinued 25 mg PO DAILY 90 3 August 05, 2018 2:22pm May 31, 2019 11:52am omega-3 fatty acids capsule (11 sources) Start: [...] 12:00am May 31, 2019 11:52am 1040 mg Manhattan-3 Fatty Acids capsule (2 sources) Start: 01-12-2019 End: 05-31-2019 take 1 capsule by mouth once daily Manhattan-3 Fatty Acids capsule Discontinued 1000 mg PO DAILY January 12, 2019 12:00am May 31, 2019 11:52am 1040 mg 28 actuat teriparatide 0.02 mg/actuat pen injector (13 sources) Parathyroid Hormone Analog Start: 03-26-2021 End: 04-07-2023 Teriparatide (Forteo) 20 mcg/dose (620mcg/2.48mL) pen injector Discontinued 20 ug SC DAILY March 26, 2021 12:00am April 07, 2023 2:00pm Vitamins A,C,E-Htym-Xbdqiz (Preservision Areds) 14,320-226-200 leeu-je-nkij capsule (13 sources) Start: 03-25-2018 End: 12-06-2022 Vitamins A,C,T-Hbpf-Vngkxl (Preservision Areds) 14,320-226-200 feav-sn-pmjo capsule Discontinued 1 NMA PO TWICE A DAY March 25, 2018 12:00am December 06, 2022 1:17pm Start: 03-25-2018 End: 12-06-2022 take 1 capsule by mouth twice daily Vitamins A,C,E-Zirl-Aenjtl (Preservision Areds) 14,320-226-200 graf-tc-txde capsule Discontinued 1 CAP PO TWICE A DAY March 24, 2018 11:00pm December 06, 2022 12:17pm Start: 03-25-2018 End: 12-06-2022 take 1 capsule by mouth twice daily Vitamins A,C,Z-Qssp-Cxleeh (Preservision Areds) 14,320-226-200 gcqr-rn-wirk capsule Discontinued 1 CAP PO TWICE A DAY March 25, 2018 12:00am December 06, 2022 1:17pm Start: 03-25-2018 take 1 capsule by [facility] twice daily Vitamins A,C,V-Izpl-Yjnjyp (Preservision Areds) 14,320-226-200 nmac-qo-vlvg capsule Active 1 CAP PO TWICE A DAY March 24, 2018 11:00pm Start: 03-25-2018 take 1 capsule by [facility] twice daily Vitamins A,C,L-Mnuo-Cmsiuo (Preservision Areds) 14,320-226-200 vbjm-zu-uvab capsule Active 1 CAP PO TWICE A DAY March 25, 2018 12:00am zinc glycinate (2 sources) Start: 10-04-2024 End: 02-08-2025 take 1 capsule by mouth once Zinc Glycinate 20 mg capsule Discontinued 20 mg PO ONCE October 04, 2024 12:00am February 08, 2025 8:34am Start: 10-04-2024 take 1 capsule by mouth once Z inc Glycinate 20 mg capsule Active 20 mg PO ONCE October 04, 2024 12:00am Problems Active Problems Problem Classification Problem Date Documented Date Episodic/Chronic Cardiac dysrhythmias (20 sources) Ventricular premature beats; Translations: [Ventricular premature depolarization] Onset: 02-08-2025 Chronic Comment on above: She is status post r emote radiofrequency ablation in 1998. Cardiac dysrhythmias (20 sources) Palpitations; Translations: [Palpitations] Onset: 02-08-2025 Episodic Comment on above: These occur intermit tently and are quality of life limiting at times. She denies any syncope or near syncope. She has had COVID and other viral infections since her last echocardiogram in 2018. The recent echocardiogram 07/24/2023 showed normal LV function and no significant valvular heart disease. I encouraged the patient to obtain some form of a wearable or [employer] mobile device to monitor her ectopy in her home environment. When the patient had a Holter monitor done back in 2019 she had palpitations both with and without symptom symptoms Disorders of lipid metabolism (20 sources) Mixed hyperlipidemia; Translations: [Mixed hyperlipidemia] Onset: 02-08-2025 Chronic Immunizations and screening for infectious disease (14 sources) Contact with and (suspected) exposure to other viral communicable diseases; Translations: [Contact with or suspected exposure to other viral communicable disease] Episodic Nutritional deficiencies (1 source) Vitamin D deficiency, unspecified; Translations: [Vitamin D deficiency, unspecified] Onset: 10-04-2024 Chronic Osteoporosis (11 sources) Osteoporosis; Translations: [Age-related osteoporosis without current pathological fracture] Onset: 10-04-2024 12-06-2022 Chronic Residual codes; unclassified (4 sources) Other specified postprocedural states; Translations: [Personal history of surgery to heart and great vessels, presenting hazards to health] Onset: 11-14-1998 06-26-2023 Episodic Unclassified (1 source) Supraventricular tachycardia, unspecified; Translations: [Supraventricular tachycardia, unspecified] Onset: 12-07-2024 Past or Other Problems Problem Classification Problem Date Documented Date Episodic/Chronic Other aftercare (1 source) halfway (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; Translations: [halfway (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] Onset: 06-21-2024 Episodic Other screening for suspected conditions (not mental disorders or infectious disease) (1 source) Encounter for screening mammogram for malignant neoplasm of breast; Translations: [Encounter for screening mammogram for malignant neoplasm of breast] Onset: 07-22-2024 Episodic Residual codes; unclassified (14 sources) History of radiofrequency ablation operation for arrhythmia; Translations: [Other specified postprocedural states] Onset: 11-14-1998 03-26-2021 Episodic Comment on above: for SVT 11/24/1998; Results Test Name Value Interpretation Reference Range Facility Cardiology Visit Reporton Cardiology Visit Report [facility] [address] [place], [place] [address] OFFICE VISIT Date of Service: 02/08/25 MR#: [id number] Acct: [id number] Name: YASMINE BRUNSON Rep #: [id number] : 1955 Provider: JENISE alcantar Age/Sex: 70/F Location: [facility] Status: Signed HPI HPI History of Present Illness Details: Yasmine Brunson is a 70-year-old white female who presents today for outpatient cardiovascular follow-up based upon history of palpitations predominantly related to her PVCs, PSVT status post EPS/RFA ([facility] - 1998 by Tripp Swift MD), and [...] fever with chills. She denies myalgia. She states fatigue. Her exercise level has remained stable. Intake Vital Signs 10/04/24 08:57 02/08/25 08:24 Height 5 ft 7 in 5 ft 7 in Weight: 106 lb 6 oz 103 lb BMI 16.6 16.1 BP 124/70 H 123/71 H Blood Pressure Location Lt brachial Lt brachial Position Sitting Sitting Respiration 16 Pulse 70 68 Pulse Source Monitor NIBP Pulse Oximetry (%) 99 Oxygen Delivery Method room air Intake Visit Reasons: 6 M FU Intervention Teacher Required: No Is patient in pain?: No Allergies No Known Allergies Allergy (Verified 02/08/25 08:32) Medications ???Medication ???Instructions ???Recorded ???Confirmed ???Type calcium 315 mg (as 1 tab PO DAILY 03/26/18 02/08/25 H istory citrate)-vitamin D3 5 mcg (200 unit) tablet (Calcium Citrate + D) cholecalciferol (vitamin D3) 50 50 mcg PO DAILY 01/10/20 02/08/25 History mcg (2,000 unit) capsule denosumab 60 mg/mL subcutaneous 60 mg subcut [id number] #1 mL 02/08/25 Rx syringe (Prolia) atorvastatin 10 mg tablet (Lipitor) 10 mg PO DAILY #90 tabs 4 02/08/25 Rx apixaban 5 mg tablet (Eliquis) 5 mg PO BID #180 tabs 08/12/24 Rx diltiazem HCl 120 mg 120 mg PO QAM #90 caps 01/18/25 Rx capsule,extended release 24 hr ascorbic acid (vitamin C) 500 mg 500 mg PO QDAY 02/08/25 02/08/25 H istory capsule magnesium oxide 250 mg PO QDAY 02/08/25 02/08/25 H istory Ejection fraction %: 65 Have you fallen in the past year?: [...] not use caffeine: Yes ROS Const Const: Positive for fatigue (Relates to increase in PVC's); Negative for weakness Eyes Eyes: Negative for change in vision ENT ENT: Negative for dizziness or balance problems Cardio Chest Pain: No Palpitations: Yes feels like its: other (PVC's. Increased over last 6 months) Edema: None Resp Respiratory: Negative for SOB with activity, SOB at rest or SOB orthopnea SOB lying down GI GI: Negative nausea or heartburn Musc Musc: Negative for balance problems Neuro Neuro: Negative for dizziness, lightheadedness, near syncope, syncope or weakness Endo Endo: Positive for fatigue (Relates to increase in PVC's) Supplemental Info Supplemental Information Echocardiogram 07/24/2023: Interpretation Summary The left ventricular ejection fraction is 65 %. Mild mitral annular calcification. Mild (1+) pulmonic valve insufficiency. Holter monitor 06/03/2019 Interpretation This is a 48hour Holter monitor in normal sinus rhythm with periods of sinus arrhythmia. Minimum heart rate was 51 BPM at 11:24:52 PM D1, no activity or symptom recorded. Maximum heart rate was 130 BPM at 4:25:38 PM D2, patient reported vacuuming. Average heart rate was noted to be 72 BPM. Occasional premature atrial complexes, 5 atrial couplets, 3 atrial runs totaling 16 bears. The longest and fastest run was 10 beats of probable ectopic atrial rhythm rate 140 BPM at 11:54:48 AM D2. Frequent premature ventricular complexes. 1 ventricular couplet. 1 ventricular tri (more content not included)... Normal [facility] Absolute lymphocyte countOrd ered By: Walter Park on 12-01-2024 Lymphocytes Auto (Unsp spec) [#/Vol] 2.92 10*3/uL 0.83-4.51 [facility] Absolute neutrophil countOrd ered By: Walter Park on 12-01-2024 Neutrophils (Bld) [#/Vol] 3.1 10*3/uL 2.0-7.7 [facility] Anion gap in Serum or Plasma Ordered By: Sal Alexis on 12-01-2024 Anion gap [Moles/Vol] 12 mmol/L 5- [facility] Automated lymphocyte count a s percentage of total leukocytesOrdered By: Walter Park on 12-01-2024 Lymphocytes/100 WBC Auto (Unsp spec) 44.3 % High 19-41 [facility] BUN/creatinine ratioOrdered By: Sal Alexis on 12-01-2024 Urea nitrogen/Creatinine [Mass ratio] 17.6 mg/mg 10- [facility] Basophil percentageOrdered B y: Walter Park on 12-01-2024 Basophils/100 WBC (Bld) 0.6 % 0-1 [facility] Bilirubin directOrdered By: Sal Alexis on 12-01-2024 Bilirubin.direct [Mass/Vol] 0.14 mg/dL 0.00-0.30 [facility] Bilirubin, Directon 12-02-19 25 Bilirubin.direct [Mass/Vol] 0.14 mg/dL Normal 0.00-0.30 [facility] Comment on above: Order Comment: LIVER LIPID TO DR. VALDEZ Performed By: #### L [id number], L500.4050, L501.4700, L500.4100, L506.1001 ####[facility] [id number] [place], [address] Bilirubin, totalOrdered By: Sal Alexis on 12-01-2024 Bilirubin [Mass/Vol] 0.30 mg/dL 0.00-1.30 [facility] CBC W/Diff, Automatedon 11-14 Absolute Lymph 2.92 X10 3/uL Normal 0.83-4.51 [facility] Comment on above: Performed By: #### L [id number], L100.0100, L506.0400 #### [facility] [address] [place], [address] Absolute Neut 3.1 X10 3/uL Normal 2.0-7.7 [facility] Comment on above: Performed By: #### L 501.5200, L100.0100, L506.0400 #### [facility] [address] [place], [address] Basophils/100 WBC (Bld) 0.6 % Normal 0-1 [facility] Comment on above: Performed By: #### L 501.5200, L100.0100, L506.0400 #### [facility] [address] [place], [address] Eosinophils/100 WBC (Bld) 1.4 % Normal 0-5 [facility] Comment on above: Performed By: #### L 501.5200, L100.0100, L506.0400 #### [facility] [address] [place], [address] Erythrocyte distribution width (RBC) [Ratio] 12.4 % Normal 11.6-14.6 [facility] Comment on above: Performed By: #### L 501.5200, L100.0100, L506.0400 #### [facility] [address] [place], [address] Hematocrit (Bld) [Volume fraction] 38.2 % Normal 37-47 [facility] Comment on above: Performed By: #### L 501.5200, L100.0100, L506.0400 #### [facility] [address] [place], [address] Hemoglobin (Bld) [Mass/Vol] 13.0 g/dL Normal 12.0-15.0 [facility] Comment on above: Performed By: #### L 501.5200, L100.0100, L506.0400 #### [facility] [address] [place], [address] IG% 0.300 Normal 0.0-0.9 [facility] Comment on above: Result Comment: IG% - Immature Granulocytes (promyelocytes, myelocytes and metamyelocytes) > 1% indicates that a LEFT SHIFT is Present. Performed By: #### L 501.5200, L100.0100, L506.0400 #### [facility] [address] [place], [address] Lymphocytes/100 WBC (Bld) 44.3 % High 19-41 [facility] Comment on above: Performed By: #### L 501.5200, L100.0100, L506.0400 #### [facility] [address] [place], [address] MCH (RBC) [Entitic mass] 29.0 pg Normal 27.0-32.0 [facility] Comment on above: Performed By: #### L 501.5200, L100.0100, L506.0400 #### [facility] [address] [place], [address] MCHC (RBC) [Mass/Vol] 34.0 g/dL Normal 32-36 [facility] Comment on above: Performed By: #### L 501.5200, L100.0100, L506.0400 #### [facility] [address] [place], [address] MCV (RBC) [Entitic vol] 85.1 fL Normal 81-99 [facility] Comment on above: Performed By: #### L 501.5200, L100.0100, L506.0400 #### [facility] [address] [place], [address] Monocytes/100 WBC (Bld) 6.7 % Normal 0-10 [facility] Comment on above: Performed By: #### L 501.5200, L100.0100, L506.0400 #### [facility] [address] [place], [address] Neutrophils/100 WBC (Bld) 46.7 % Low 47-70 [facility] Comment on above: Performed By: #### L 501.5200, L100.0100, L506.0400 #### [facility] [address] [place], [address] Nucleated RBC (Bld) [#/Vol] 0 10*3/uL Normal 0-5 [facility] Comment on above: Performed By: #### L 501.5200, L100.0100, L506.0400 #### [facility] [address] [place], [address] Platelet mean volume (Bld) [Entitic vol] 8.7 fL Normal 6.2-12.0 [facility] Comment on above: Performed By: #### L 501.5200, L100.0100, L506.0400 #### [facility] [address] [place], [address] Platelets (Bld) [#/Vol] 328 10*3/uL Normal 150-450 [facility] Comment on above: Performed By: #### L 501.5200, L100.0100, L506.0400 #### [facility] [address] [place], [address] RBC (Bld) [#/Vol] 4.49 10*6/uL Normal 4.2-5.4 [facility] Comment on above: Performed By: #### L 501.5200, L100.0100, L506.0400 #### [facility] [address] [place], [address] RDW SD 38.6 fl Normal 35.1-43.9 [facility] Comment on above: Performed By: #### L 501.5200, L100.0100, L506.0400 #### [facility] [address] [place], [address] WBC (Bld) [#/Vol] 6.6 10*3/uL Normal 4.4-11.0 [facility] Comment on above: Performed By: #### L 501.5200, L100.0100, L506.0400 #### [facility] [address] [place], [address] Calculated very low density lipoprotein (VLDL) cholesterol measurementOrdered By: Sal Alexis on 12-01-2024 Calculated very low density lipoprotein (VLDL) cholesterol measurement 10 mg/dL 5-40 [facility] Carbon dioxide, total [Moles /volume] in Central venous bloodOrdered By: Sal Alexis on 12-01-2024 CO2 [Moles/Vol] 23.1 mmol/L 21.0-32.0 [facility] Chloride assayOrdered By: Miguelangel Alexis on 12-01-2024 Chloride [Moles/Vol] 105 mmol/L 98-108 [facility] Comprehensive Metabolic Prof ilon 12-01-2024 Albumin [Mass/Vol] 4.2 g/dL Normal 3.4-4.8 [facility] Comment on above: Order Comment: LIVER LIPID TO DR. VALDEZ Performed By: #### L [id number], L500.4050, L501.4700, L500.4100, L506.1001 ####[facility] [id number] [place], [address] Albumin/Globulin [Mass ratio] 1.5 {ratio} Normal 0.9-2.4 [facility] Comment on above: Order Comment: LIVER LIPID TO DR. VALDEZ Performed By: #### L [id number], L500.4050, L501.4700, L500.4100, L506.1001 ####[facility] [address] [place], [address] ALK PHOS 72 U/L Normal 35-104 [facility] Comment on above: Order Comment: LIVER LIPID TO DR. VALDEZ Performed By: #### L [id number], L500.4050, L501.4700, L500.4100, L506.1001 ####[facility] [address] [place], [address] ALT [Catalytic activity/Vol] 13 U/L Normal <=34 [facility] Comment on above: Order Comment: LIVER LIPID TO DR. VALDEZ Performed By: #### L 501.9520, L500.4050, L501.4700, L500.4100, L506.1001 ####[facility] [address] [place], [address] AST [Catalytic activity/Vol] 20 U/L Normal <=31 [facility] Comment on above: Order Comment: LIVER LIPID TO DR. VALDEZ Performed By: #### L 501.9520, L500.4050, L501.4700, L500.4100, L506.1001 ####[facility] [address] [place], [address] Bilirubin [Mass/Vol] 0.30 mg/dL Normal 0.00-1.30 [facility] Comment on above: Order Comment: LIVER LIPID TO DR. VALDEZ Performed By: #### L 501.9520, L500.4050, L501.4700, L500.4100, L506.1001 ####[facility] [address] [place], [address] BUN/CRE 17.6 RATIO Normal 10-20 [facility] Comment on above: Order Comment: LIVER LIPID TO DR. VALDEZ Performed By: #### L 501.9520, L500.4050, L501.4700, L500.4100, L506.1001 ####[facility] [address] [place], [address] Calcium [Mass/Vol] 9.0 mg/dL Normal 7.6-11.0 [facility] Comment on above: Order Comment: LIVER LIPID TO DR. VALDEZ Performed By: #### L 501.9520, L500.4050, L501.4700, L500.4100, L506.1001 ####[facility] [address] [place], [address] Chloride [Moles/Vol] 105 mmol/L Normal 98-108 [facility] Comment on above: Order Comment: LIVER LIPID TO DR. VALDEZ Performed By: #### L 501.9520, L500.4050, L501.4700, L500.4100, L506.1001 ####[facility] [address] [place], [address] CO2 [Moles/Vol] 23.1 mmol/L Normal 21.0-32.0 [facility] Comment on above: Order Comment: LIVER LIPID TO DR. VALDEZ Performed By: #### L 501.9520, L500.4050, L501.4700, L500.4100, L506.1001 ####[facility] [address] [place], [address] Creatinine [Mass/Vol] 0.69 mg/dL Low 0.70-1.20 [facility] Comment on above: Order Comment: LIVER LIPID TO DR. VALDEZ Performed By: #### L 501.9520, L500.4050, L501.4700, L500.4100, L506.1001 ####[facility] [address] [place], [address] GAP 12 Normal 5-15 [facility] Comment on above: Order Comment: LIVER LIPID TO DR. VALDEZ Performed By: #### L 501.9520, L500.4050, L501.4700, L500.4100, L506.1001 ####[facility] [address] [place], [address] GFR/1.73 sq M.predicted among non-blacks MDRD (S/P/Bld) [Vol rate/Area] 93 mL/min/{1.73_m2} Normal >60 [facility] Comment on above: Order Comment: LIVER LIPID TO DR. VALDEZ Result Comment: mL/m in/1.73m2 CKD-EPI Creatinine Equation (2020) Performed By: #### L 501.9520, L500.4050, L501.4700, L500.4100, L506.1001 ####[facility] [address] [place], [address] Globulin (S) [Mass/Vol] 2.7 g/dL Normal 2.2-4.2 [facility] Comment on above: Order Comment: LIVER LIPID TO DR. VALDEZ Performed By: #### L 501.9520, L500.4050, L501.4700, L500.4100, L506.1001 ####[facility] [address] [place], [address] Glucose [Mass/Vol] 101 mg/dL High 70-99 [facility] Comment on above: Order Comment: LIVER LIPID TO DR. VALDEZ Performed By: #### L 501.9520, L500.4050, L501.4700, L500.4100, L506.1001 ####[facility] [address] [place], [address] Potassium [Moles/Vol] 3.7 mmol/L Normal 3.3-5.1 [facility] Comment on above: Order Comment: LIVER LIPID TO DR. VALDEZ Performed By: #### L 501.9520, L500.4050, L501.4700, L500.4100, L506.1001 ####[facility] [address] [place], [address] Sodium [Moles/Vol] 140 mmol/L Normal 133-145 [facility] Comment on above: Order Comment: LIVER LIPID TO DR. VALDEZ Performed By: #### L 501.9520, L500.4050, L501.4700, L500.4100, L506.1001 ####[facility] [address] [place], [address] T PROT 6.9 g/dL Normal 5.9-8.4 [facility] Comment on above: Order Comment: LIVER LIPID TO DR. VALDEZ Performed By: #### L 501.9520, L500.4050, L501.4700, L500.4100, L506.1001 ####[facility] [address] [place], [address] Urea nitrogen [Mass/Vol] 12 mg/dL Normal 4-19 [facility] Comment on above: Order Comment: LIVER LIPID TO DR. VALDEZ Performed By: #### L 501.9520, L500.4050, L501.4700, L500.4100, L506.1001 ####[facility] [address] [place], [address] Eosinophil percentageOrdered By: Walter Park on 12-01-2024 Eosinophils/100 WBC (Bld) 1.4 % 0-5 [facility] Erythrocyte distribution wid th ratioOrdered By: Walter Park on 12-01-2024 Erythrocyte distribution width (RBC) [Ratio] 12.4 % 11.6-14.6 [facility] Erythrocyte distribution wid th standard deviationOrdered By: Walter Park on 12-01-2024 Erythrocyte distribution width (RBC) [Ratio] 38.6 fl 35.1-43.9 [facility] Glomerular filtration rate ( GFR) estimation/1.73 sq m using serum, plasma, or whole bOrdered By: Sal Alexis on 12-01-2024 GFR/1.73 sq M.predicted among non-blacks MDRD (S/P/Bld) [Vol rate/Area] 93 mL/min/{1.73_m2} >60 [facility] Comment on above: mL/min/1.73m2 CKD-EP I Creatinine Equation (2020) Hematocrit Auto (Bld) [Volum e fraction]Ordered By: Walter Park on 12-01-2024 Hematocrit (Bld) [Volume fraction] 38.2 % 37-47 [facility] Hemoglobin measurementOrdere d By: Walter Park on 12-01-2024 Hemoglobin (Bld) [Mass/Vol] 13.0 g/dL 12.0-15.0 [facility] Immature granulocytes/100 WB C Auto (Bld)Ordered By: Walter Park on 12-01-2024 Immature granulocytes/100 WBC (Bld) 0.300 % 0.0-0.9 [facility] Comment on above: IG% - Immature Granu locytes (promyelocytes, myelocytes and metamyelocytes) > 1% indicates that a LEFT SHIFT is Present. LDL calc ser/plasOrdered By: Sal Alexis on 12-01-2024 Cholesterol in LDL [Mass/Vol] 84 mg/dL [facility] Comment on above: Iwquxarzwq=133-709 m g/dL & Higher Yufa=649 mg/dL or greater Laboratory - Chemistry and C hemistry - challengeOrdered By: Sal Alexis on 12-01-2024 AST [Catalytic activity/Vol] 20 U/L <32 [facility] Lipid Profileon 12-01-2024 CHOL:HDL 2.38 Normal [facility] Comment on above: Order Comment: LIVER LIPID TO DR. VALDEZ Performed By: #### L 501.9520, L500.4050, L501.4700, L500.4100, L506.1001 ####[facility] [address] [place], [address] Cholesterol [Mass/Vol] 162 mg/dL Normal <=200 [facility] Comment on above: Order Comment: LIVER LIPID TO DR. VALDEZ Result Comment: Chol esterol level, Desirable <200 mg/dL Borderline high cholesterol 200-239 mg/dL High cholesterol >=240 mg/dL Recommendations of the NCEP Adult Treatment Panel for the following risk-cutoff thresholds for the [place] population. Performed By: #### L 501.9520, L500.4050, L501.4700, L500.4100, L506.1001 ####[facility] [address] [place], [address] Cholesterol in HDL [Mass/Vol] 68 mg/dL Normal [facility] Comment on above: Order Comment: LIVER LIPID TO DR. VALDEZ Result Comment: Cynthia onal Cholesterol Education Program (NCEP) guidelines: <40 mg/dL: Low HDL-cholesterol (major risk factor for CHD) >= 60 mg/dL: High HDL-cholesterol (negative risk factor for CHD) HDL-cholesterol is affected by a number of factors, e.g. smoking, exercise, hormones, sex and age. Performed By: #### L 501.9520, L500.4050, L501.4700, L500.4100, L506.1001 ####[facility] [address] [place], [address] Cholesterol in LDL [Mass/Vol] 84 mg/dL Normal [facility] Comment on above: Order Comment: LIVER LIPID TO DR. VALDEZ Result Comment: Bord kqwene=464-786 mg/dL Higher Myjo=095 mg/dL or greater Performed By: #### L 501.9520, L500.4050, L501.4700, L500.4100, L506.1001 ####[facility] [address] [place], [address] Cholesterol in VLDL [Mass/Vol] 10 mg/dL Normal 5-40 [facility] Comment on above: Order Comment: LIVER LIPID TO DR. VALDEZ Performed By: #### L 501.9520, L500.4050, L501.4700, L500.4100, L506.1001 ####[facility] [address] [place], [address] Triglyceride [Mass/Vol] 50 mg/dL Normal [facility] Comment on above: Order Comment: LIVER LIPID TO DR. VALDEZ Result Comment: The drugs N-Acetylcysteine and Metamizole may falsely depress this assay. Normal range: <150 mg/dL Borderline High: 150-199 mg/dL High: 200-499 mg/dL Very High: >500 mg/dL Performed By: #### L 501.9520, L500.4050, L501.4700, L500.4100, L506.1001 ####[facility] [address] [place], [address] CHOL Normal <=200 [facility] Comment on above: Result Comment: DUPL IACTE Performed By: #### L 500.4100, L500.3400 #### [facility] [address] [place], [address] CHOL:HDL Normal [facility] Comment on above: Result Comment: DUPL IACTE Performed By: #### L 500.4100, L500.3400 #### [facility] [address] [place], [address] CLDL Normal [facility] Comment on above: Result Comment: DUPL IACTE Performed By: #### L 500.4100, L500.3400 #### [facility] [address] [place], [address] HDL Normal [facility] Comment on above: Result Comment: DUPL IACTE Performed By: #### L 500.4100, L500.3400 #### [facility] [address] [place], [address] TRIG Normal [facility] Comment on above: Result Comment: DUPL IACTE The drugs N-Acetylcysteine and Metamizole may falsely depress this assay. Performed By: #### L 500.4100, L500.3400 #### [facility] [address] [place], [address] VLDL Normal 5-40 [facility] Comment on above: Result Comment: DUPL IACTE Performed By: #### L 500.4100, L500.3400 #### [facility] [address] [place], [address] Liver Profileon 12-01-2024 ALB Normal 3.4-4.8 [facility] Comment on above: Result Comment: DUPL IACTE Performed By: #### L 500.4100, L500.3400 #### [facility] [address] [place], [address] ALK PHOS Normal 35-104 [facility] Comment on above: Result Comment: DUPL IACTE Performed By: #### L 500.4100, L500.3400 #### [facility] [address] [place], [address] ALT Normal <=34 [facility] Comment on above: Result Comment: DUPL IACTE Performed By: #### L 500.4100, L500.3400 #### [facility] [address] [place], [address] AST Normal <=31 [facility] Comment on above: Result Comment: DUPL IACTE Performed By: #### L 500.4100, L500.3400 #### [facility] [address] [place], [address] D BILI Normal 0.00-0.30 [facility] Comment on above: Result Comment: DUPL IACTE Performed By: #### L 500.4100, L500.3400 #### [facility] [address] [place], [address] T BILI Normal 0.00-1.30 [facility] Comment on above: Result Comment: DUPL IACTE Performed By: #### L 500.4100, L500.3400 #### [facility] [address] [place], [address] T PROT Normal 5.9-8.4 [facility] Comment on above: Result Comment: DUPL IACTE Performed By: #### L 500.4100, L500.3400 #### [facility] [address] [place], [address] MCV (mean corpuscular volume ) determinationOrdered By: Walter Park on 12-01-2024 MCV (RBC) [Entitic vol] 85.1 fL 81-99 [facility] Magnesiumon 12-01-2024 Magnesium [Mass/Vol] 1.9 mg/dL Normal 1.5-2.2 [facility] Comment on above: Performed By: #### L 501.5200, L100.0100, L506.0400 #### [facility] [address] [place], [address] Magnesium measurement (mass/ volume)Ordered By: Walter Park on 12-01-2024 Magnesium (Unsp spec) [Mass/Vol] 1.9 mg/dL 1.5-2.2 [facility] Mean corpuscular hemoglobin (MCH) determinationOrdered By: Walter Park on 12-01-2024 MCH (RBC) [Entitic mass] 29.0 pg 27.0-32.0 [facility] Mean corpuscular hemoglobin concentration (MCHC) determinationOrdered By: Walter Park on 12-01-2024 MCHC (RBC) [Mass/Vol] 34.0 g/dL 32-36 [facility] Mean platelet volume determi nationOrdered By: Walter Park on 12-01-2024 Platelet mean volume (Bld) [Entitic vol] 8.7 fL 6.2-12.0 [facility] Monocyte percentageOrdered B y: Walter Park on 12-01-2024 Monocytes/100 WBC (Bld) 6.7 % 0-10 [facility] Neutrophil percentageOrdered By: Walter Park on 12-01-2024 Neutrophils/100 WBC (Bld) 46.7 % Low 47-70 [facility] Nucleated red blood cell per centageOrdered By: Walter Park on 12-01-2024 Nucleated RBC/100 WBC (Bld) [Ratio] 0 % 0-5 [facility] Platelet countOrdered By: Meredith Park on 12-01-2024 Platelets (Bld) [#/Vol] 328 10*3/uL 150-450 [facility] Potassium measurement (mass/ volume)Ordered By: Sal Alexis on 12-01-2024 Potassium (Unsp spec) [Mass/Vol] 3.7 mmol/L 3.3-5.1 [facility] RBC Auto (Bld) [#/Vol]Ordere d By: Walter Park on 12-01-2024 RBC (Bld) [#/Vol] 4.49 10*6/uL 4.2-5.4 [facility] Screening total cholesterol/ high density lipoprotein (HDL) cholesterol ratioOrdered By: Sal Alexis on 12-01-2024 Cholesterol.total/Choles terol in HDL [Mass ratio] 2.38 {ratio} [facility] Serum creatinine measurement (mass/volume)Ordered By: Sal Alexis on 12-01-2024 Creatinine [Mass/Vol] 0.69 mg/dL Low 0.70-1.20 [facility] Serum globulin measurementOr dered By: Sal Alexis on 12-01-2024 Globulin (S) [Mass/Vol] 2.7 g/dL 2.2-4.2 [facility] Serum glucose measurement (m ass/volume)Ordered By: Sal Alexis on 12-01-2024 Glucose [Mass/Vol] 101 mg/dL High 70-99 [facility] Serum or plasma alanine gardiner otransferase (ALT) measurementOrdered By: Sal Alexis on 12-01-2024 ALT [Catalytic activity/Vol] 13 U/L <35 [facility] Serum or plasma albumin glenda urement (mass/volume)Ordered By: Sal Alexis on 12-01-2024 Albumin [Mass/Vol] 4.2 g/dL 3.4-4.8 [facility] Serum or plasma albumin/glob ulin mass ratioOrdered By: Sal Alexis on 12-01-2024 Albumin/Globulin [Mass ratio] 1.5 {ratio} 0.9-2.4 [facility] Serum or plasma alkaline mainor sphatase measurementOrdered By: Sal Alexis on 12-01-2024 ALP [Catalytic activity/Vol] 72 U/L 35-104 [facility] Serum or plasma calcium glenda urement (mass/volume)Ordered By: Sal Alexis on 12-01-2024 Calcium [Mass/Vol] 9.0 mg/dL 7.6-11.0 [facility] Serum or plasma cholesterol in HDL measurement (mass/volume)Ordered By: Sal Alexis on 12-01-2024 Cholesterol in HDL [Mass/Vol] 68 mg/dL >40 [facility] Comment on above: National Cholesterol Education Program (NCEP) guidelines:<40 mg/dL: Low HDL-cholesterol (major risk factor for CHD)>= 60 mg/dL: High HDL-cholesterol (negative risk factor for CHD)HDL-cholesterol is affected by a number of factors, e.g. smoking, exercise, hormones, sex and age. Serum or plasma cholesterol measurement (mass/volume)Ordered By: Sal Alexis on 12-01-2024 Cholesterol [Mass/Vol] 162 mg/dL <201 [facility] Comment on above: Cholesterol level, D esirable <200 mg/dLBorderline high cholesterol 200-239 mg/dLHigh cholesterol >=240 mg/dLRecommendations of the NCEP Adult Treatment Panel for the following risk-cutoff thresholds for the [place] population. Serum or plasma urea nitroge n measurement (mass/volume)Ordered By: Sal Alexis on 12-01-2024 Urea nitrogen [Mass/Vol] 12 mg/dL 4-19 [facility] Sodium levelOrdered By: Sal Alexis on 12-01-2024 Sodium [Moles/Vol] 140 mmol/L 133-145 [facility] T4 Free Directon 12-01-2024 T4 FREE DIRECT 1.10 ng/dL Normal 0.76-1.46 [facility] Comment on above: Performed By: #### L 501.5200, L100.0100, L506.0400 #### [facility] [address] [place], [place], [address] T4 freeOrdered By: Waltre Park on 12-01-2024 Free T4 [Mass/Vol] 1.10 ng/dL 0.76-1.46 [facility] TSH DL <= 0.005 mIU/L QnOrde red By: Sal Alexis on 12-01-2024 TSH Qn 1.400 uIU/mL 0.300-4.200 [facility] Thyroid Stim Hormone (TSH)on 12-01-2024 TSH 1.400 uIU/mL Normal 0.300-4.200 [facility] Comment on above: Order Comment: LIVER LIPID TO DR. VALDEZ Performed By: #### L 501.9520, L500.4050, L501.4700, L500.4100, L506.1001 ####[facility] [address] [place], [place], [address] Total proteinOrdered By: Adam Alexis on 12-01-2024 Protein [Mass/Vol] 6.9 g/dL 5.9-8.4 [facility] Triglycerides measurementOrd ered By: Sal Alexis on 12-01-2024 Triglyceride [Mass/Vol] 50 mg/dL <199 [facility] Comment on above: The drugs N-Acetylcy steine and Metamizole may falsely depress this assay. Normal range: <150 mg/dLBorderline High: 150-199 mg/dLHigh: 200-499 mg/dLVery High: >500 mg/dL Vitamin D,25 Hydroxyon 12-01 Vitamin D 25-OH 49.6 ng/mL Normal 30-100 [facility] Comment on above: Order Comment: LIVER LIPID TO DR. VALDEZ Result Comment: Tracey min D Status Deficiency: <20 ng/mL (50nmol/L) Insufficiency: 20-30 ng/mL (50-75 nmol/L) Sufficiency: 30-100 ng/mL (75-250 nmol/L) Toxicity: >100 ng/mL (>250 nmol/L) Performed By: #### L 501.9520, L500.4050, L501.4700, L500.4100, L506.1001 ####[facility] [address] [place], [address] White blood cell (WBC) count Ordered By: Walter Park on 12-01-2024 WBC (Bld) [#/Vol] 6.6 10*3/uL 4.4-11.0 [facility] Endocrinology Visit Reporton 10-04-2024 Endocrinology Visit Report [facility] [facility] [place], [place] [address] OFFICE VISIT Date of Service: 10/04/24 MR#: [id number] Acct: [id number] Name: YASMINE BRUNSON Rep #: [id number] : 1955 Provider: Yusra Angulo Age/Sex: 69/F Location[facility] Status: Signed Intake Vital Signs 01/19/24 10:00 [...] denosumab 60 mg/mL subcutaneous 60 mg subcut [id number] #1 mL 10/04/24 Rx syringe (Prolia) diltiazem [...] normal Attitude: (more content not included)... Normal [facility] SCRN MAMM (CAD)W/DAVIAN BILATo n 06-25-2024 SCRN MAMM (CAD)W/DAVIAN BILAT [facility] [address] [place] [address] SCRN MAMM (CAD)W/DAVIAN BILAT MR#: [id number] Acct: [id number] Name: YASMINE BRUNSON Rep #: [id number] : 1955 F 69 From: David cabezas MD PCP: Dr. Joelle Krishnamurthy MD [facility] Study: SCRN MAMM (CAD)W/DAVIAN BILAT Date of Exam: 06/16 Exam# [id number] Ordering Dr: Joelle Krishnamurthy MD [id number] MAMMOGRAPHY - BILATERAL SCREENING REASON FOR EXAM: [...] delay biopsy of a clinically suspicious abnormality. [id number] Electronically Signed: David Snyder MD at 9:51 EST Reading Location ID and State: [address] [place] [address] , Service support , CC: Dr. Joelle Krishnamurthy MD International Banker: Signed Normal [facility] Cardiology Visit Reporton Cardiology Visit Report [facility] [address] [facility] [place] [address] OFFICE VISIT Date of Service: 06/21/24 MR#: [id number] Acct: [id number] Name: YASMINE BRUNSON Rep #: [id number] : 1955 Provider: JENISE alcantar Age/Sex: 69/F Location: [facility] Status: Signed HPI HPI History of Present Illness Details: Yasmine Brunson is a 69-year-old white female who presents today for outpatient cardiovascular follow-up based upon history of palpitations not predominantly related to her PVCs, PSVT status post EPS/RFA ([employer] [facility] [employer] - 1998 by Tripp Swift MD), and [...] 99 Intake Visit Reasons: 1 y fu Intervention Teacher Required: No Is patient in pain?: No [...] denosumab 60 mg/mL subcutaneous 60 mg subcut [id number] #1 mL 02/27/23 06/21/24 Rx syringe (Prolia) [...] normal respirato (more content not included)... Normal [facility] Lipid Profileon 06-02-2024 Cholesterol [Mass/Vol] 161 mg/dL Normal 200 [facility] Comment on above: Result Comment: <200 mg/dL Desirable 200-240 mg/dL Borderline >240 mg/dL High Risk Performed By: #### L 500.3257, L500.3400 ####[facility] [address] [place], [address] Cholesterol in HDL [Mass/Vol] 81 mg/dL Normal [facility] Comment on above: Result Comment: The drugs N-Acetylcysteine and Metamizole may falsely depress this assay. Reference Range HDL <40 mg/dL Low HDL Cholesterol HDL >or= 60 mg/dL High HDL Cholesterol Performed By: #### L 500.4100, L500.3400 ####[facility] [address] [place], [address] Cholesterol in LDL [Mass/Vol] 70 mg/dL Normal 0-130 [facility] Comment on above: Performed By: #### L 500.4100, L500.3400 ####[facility] [address] [place], [address] Cholesterol in VLDL [Mass/Vol] 10 mg/dL Normal 5-40 [facility] Comment on above: Performed By: #### L 500.4100, L500.3400 ####[facility] [address] [place], [address] Triglyceride [Mass/Vol] 50 mg/dL Normal [facility] Comment on above: Result Comment: The drugs N-Acetylcysteine and Metamizole may falsely depress this assay. Serum Triglycerides Reference Interval Normal <150 mg/dL Borderline high 150 - 199 mg/dL High 200 - 499 mg/dL Very High > or = 500 mg/dL Performed By: #### L 500.4100, L500.3400 ####[facility] [address] [place], [address] Liver Profileon 06-02-2024 Albumin [Mass/Vol] 3.7 g/dL Normal 3.2-5.0 [facility] Comment on above: Performed By: #### L 500.4100, L500.3400 #### [facility] [address] [place], [address] ALK P 58 U/L Normal 45-117 [facility] Comment on above: Performed By: #### L 500.4100, L500.3400 #### [facility] [address] [place], [address] ALT [Catalytic activity/Vol] 15 U/L Normal 13-56 [facility] Comment on above: Performed By: #### L 500.4100, L500.3400 #### [facility] [address] [place], [address] AST [Catalytic activity/Vol] 12 U/L Low 15-37 [facility] Comment on above: Performed By: #### L 500.4100, L500.3400 #### [facility] [address] [place], [address] Bilirubin [Mass/Vol] 0.50 mg/dL Normal 0.20-1.00 [facility] Comment on above: Result Comment: For patients on eltrombopag therapy, use of Dimension [employer] TBIL is not recommended. Performed By: #### L 500.4100, L500.3400 #### [facility] [address] [place], [address] Bilirubin.direct [Mass/Vol] 0.12 mg/dL Normal 0.00-0.30 [facility] Comment on above: Performed By: #### L 500.4100, L500.3400 #### [facility] [address] [place], [address] Globulin (S) [Mass/Vol] 3.5 g/dL Normal 2.2-4.2 [facility] Comment on above: Performed By: #### L 500.4100, L500.3400 #### [facility] [address] [place], [address] T PROT 7.2 g/dL Normal 6.4-8.2 [facility] Comment on above: Performed By: #### L 500.4100, L500.3400 #### [facility] [address] [place], [address] Office Visit Report 2023 Office Visit Report [facility] [address] 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: [employer] date: 08/13/26 Dose of injection: 1 mL Site of injection: Sub-Q Medication Given: Yes Is this a patient provided medication?: No Office Meds Prolia 60 mg/mL subcutaneous syringe Performing Provider: Sal Alexis MD Performing Location: [facility] Administered by: Hunter Olson RN on 04/08/24 14:02 Dose [address] Admin Location Dispensed Lot Number Expiration Date [facility] Man ufacturer 60 mg subcut Left Abdomen 1 mL [id number] 08/13/26 [id number] AMGEN Assessment and Plan Assessment and Plan [...] No 04/09/24 0714 Date Sal Alexis MD Cosigner Signature: Date (if applicable) CC: [facility] Basophil percentageOrdered B y: Walter Park on 05-01-2023 Bilirubin [Mass/Vol] 0.50 mg/dL 0.20-1.00 [facility] Comment on above: For patients on eltr ombopag therapy, use of Dimension [place] TBIL is not recommended. Cholesterol [Mass/Vol] 147 mg/dL <200 [facility] Comment on above: <200 mg/dL Desirable 200-240 mg/dL Borderline >240 mg/dL High Risk Protein [Mass/Vol] 6.8 g/dL 6.4-8.2 [facility] Triglyceride [Mass/Vol] 67 mg/dL <199 [facility] Comment on above: The drugs N-Acetylcy steine and Metamizole may falsely depress this assay.Serum Triglycerides Reference Interval Normal <150 mg/dL Borderline high 150 - 199 mg/dL High 200 - 499 mg/dL Very High > or = 500 mg/dL Direct bilirubinOrdered By: Walter Park on 05-01-2023 Bilirubin.direct [Mass/Vol] 0.11 mg/dL 0.00-0.30 [facility] Laboratory - Chemistry and C hemistry - challengeOrdered By: Walter Park on 05-01-2023 ALP [Catalytic activity/Vol] 65 U/L 45-117 [facility] ALT [Catalytic activity/Vol] 16 U/L 13-56 [facility] Globulin (S) [Mass/Vol] 3.2 g/dL 2.2-4.2 [facility] Serum or plasma albumin glenda urement (mass/volume)Ordered By: Walter Park on 05-01-2023 Albumin [Mass/Vol] 3.6 g/dL 3.2-5.0 [facility] Serum or plasma cholesterol in HDL measurement (mass/volume)Ordered By: Walter Park on 05-01-2023 Cholesterol in HDL [Mass/Vol] 68 mg/dL >40 [facility] Comment on above: The drugs N-Acetylcy steine and Metamizole may falsely depress this assay. Reference Range HDL <40 mg/dL Low HDL Cholesterol HDL >or= 60 mg/dL High HDL Cholesterol Serum or plasma cholesterol in VLDL measurement (mass/volume)Ordered By: Walter Park on 05-01-2023 Cholesterol in VLDL [Mass/Vol] 13 mg/dL 5-40 [facility] Serum or plasma low density lipoprotein (LDL) cholesterol measurement (mass/volume)Ordered By: Walter Park on 05-01-2023 Cholesterol in LDL [Mass/Vol] 66 mg/dL 0-130 [facility] Thin prep Papanicolaou smear with manual screeningOrdered By: Walter Park on 05-01-2023 Thin prep Papanicolaou smear with manual screening 12 U/L 15-37 [facility] Basophil percentageOrdered B y: Sal Alexis on 12-06-2022 Bilirubin [Mass/Vol] 0.40 mg/dL 0.20-1.00 [facility] Comment on above: For patients on eltr ombopag therapy, use of Dimension [place] TBIL is not recommended. Chloride [Moles/Vol] 109 mmol/L 98-107 [facility] Glucose [Mass/Vol] 96 mg/dL 74-106 [facility] Potassium [Moles/Vol] 3.9 mmol/L 3.5-5.1 [facility] Protein [Mass/Vol] 6.7 g/dL 6.4-8.2 [facility] Sodium [Moles/Vol] 143 mmol/L 136-145 [facility] Laboratory - Chemistry and C hemistry - challengeOrdered By: Sal Alexis on 12-06-2022 ALP [Catalytic activity/Vol] 70 U/L 45-117 [facility] ALT [Catalytic activity/Vol] 25 U/L 13-56 [facility] CO2 [Moles/Vol] 29.0 mmol/L 21.0-32.0 [facility] Globulin (S) [Mass/Vol] 2.9 g/dL 2.2-4.2 [facility] Urea nitrogen/Creatinine [Mass ratio] 23.4 mg/mg 10-20 [facility] No Panel InformationOrdered By: Sal Alexis on 12-06-2022 Estimated GFR (MDRD) Amer 102 mL/min >60 [facility] Comment on above: GFR Calc Estimated GFR (MDRD) Non-Af Amer 84 mL/min >60 [facility] Comment on above: Non- GFR Calc Vitamin D 25-Hydroxy 76.3 ng/mL [facility] Comment on above: Vitamin D 25(OH) Sta tus Range Deficiency <20 ng/mL (50nmol/L) Insufficiency 20 - 30 ng/mL (50 - 75 nmol/L) Sufficiency 30 - 100 ng/mL (75 - 250 nmol/L) Toxicity >100 ng/mL (>250 nmol/L) Serum or plasma albumin glenda urement (mass/volume)Ordered By: Sal Alexis on 12-06-2022 Albumin [Mass/Vol] 3.8 g/dL 3.2-5.0 [facility] Serum or plasma albumin/glob ulin mass ratioOrdered By: Sal Alexis on 12-06-2022 Albumin/Globulin [Mass ratio] 1.3 {ratio} 0.9-2.4 [facility] Serum or plasma calcium glenda urement (mass/volume)Ordered By: Sal Alexis on 12-06-2022 Calcium [Mass/Vol] 8.9 mg/dL 8.5-10.1 [facility] Serum or plasma creatinine m easurement (mass/volume)Ordered By: Sal Alexis on 12-06-2022 Creatinine [Mass/Vol] 0.73 mg/dL 0.55-1.02 [facility] Comment on above: The validity of the calculated GFR & GFRAA in patients over 70 years has not been determined. Clinical correlation is essential. Serum or plasma urea nitroge n measurement (mass/volume)Ordered By: Sal Alexis on 12-06-2022 Urea nitrogen [Mass/Vol] 17 mg/dL 7-18 [facility] Thin prep Papanicolaou smear with manual screeningOrdered By: Sal Alexis on 12-06-2022 Thin prep Papanicolaou smear with manual screening 17 U/L 15-37 [facility] Thin prep Papanicolaou smear with manual screening 5 5-15 [facility] Basophil percentageOrdered B y: Dr. Lo on 07-29-2022 Bilirubin [Mass/Vol] 0.60 mg/dL 0.20-1.00 [facility] Comment on above: For patients on eltr ombopag therapy, use of Dimension [place] TBIL is not recommended. Cholesterol [Mass/Vol] 158 mg/dL <200 [facility] Comment on above: <200 mg/dL Desirable 200-240 mg/dL Borderline >240 mg/dL High Risk Protein [Mass/Vol] 7.1 g/dL 6.4-8.2 [facility] Triglyceride [Mass/Vol] 64 mg/dL <199 [facility] Comment on above: The drugs N-Acetylcy steine and Metamizole may falsely depress this assay.Serum Triglycerides Reference Interval Normal <150 mg/dL Borderline high 150 - 199 mg/dL High 200 - 499 mg/dL Very High > or = 500 mg/dL Direct bilirubinOrdered By: Dr. Lo on 07-29-2022 Bilirubin.direct [Mass/Vol] 0.12 mg/dL 0.00-0.30 [facility] Laboratory - Chemistry and C hemistry - challengeOrdered By: Dr. Lo on 07-29-2022 ALP [Catalytic activity/Vol] 66 U/L 45-117 [facility] ALT [Catalytic activity/Vol] 21 U/L 13-56 [facility] Globulin (S) [Mass/Vol] 3.1 g/dL 2.2-4.2 [facility] Serum or plasma albumin glenda urement (mass/volume)Ordered By: Dr. Lo on 07-29-2022 Albumin [Mass/Vol] 4.0 g/dL 3.2-5.0 [facility] Serum or plasma cholesterol in HDL measurement (mass/volume)Ordered By: Dr. Lo on 07-29-2022 Cholesterol in HDL [Mass/Vol] 76 mg/dL >40 [facility] Comment on above: The drugs N-Acetylcy steine and Metamizole may falsely depress this assay. Reference Range HDL <40 mg/dL Low HDL Cholesterol HDL >or= 60 mg/dL High HDL Cholesterol Serum or plasma cholesterol in VLDL measurement (mass/volume)Ordered By: Dr. Lo on 07-29-2022 Cholesterol in VLDL [Mass/Vol] 13 mg/dL 5-40 [facility] Serum or plasma low density lipoprotein (LDL) cholesterol measurement (mass/volume)Ordered By: Dr. Lo on 07-29-2022 Cholesterol in LDL [Mass/Vol] 69 mg/dL 0-130 [facility] Thin prep Papanicolaou smear with manual screeningOrdered By: Dr. Lo on 07-29-2022 Thin prep Papanicolaou smear with manual screening 15 U/L 15-37 [facility] Absolute lymphocyte countOrd ered By: Dr. Krishnamurthy on 07-01-2022 Lymphocytes Auto (Unsp spec) [#/Vol] 1.69 10*3/uL 0.83-4.51 [facility] Basophil percentageOrdered B y: Dr. Krishnamurthy on 07-01-2022 Basophils/100 WBC (Bld) 0.4 % 0-1 [facility] Chloride [Moles/Vol] 104 mmol/L 98-107 [facility] Eosinophils/100 WBC (Bld) 0.3 % 0-5 [facility] Glucose [Mass/Vol] 97 mg/dL 74-106 [facility] Neutrophils (Bld) [#/Vol] 4.7 10*3/uL 2.0-7.7 [facility] Neutrophils/100 WBC (Bld) 69.0 % 47-70 [facility] Potassium [Moles/Vol] 4.3 mmol/L 3.5-5.1 [facility] Sodium [Moles/Vol] 141 mmol/L 136-145 [facility] WBC (Bld) [#/Vol] 6.8 10*3/uL 4.4-11.0 [facility] Blood erythrocytes count (nu mber/volume)Ordered By: Dr. Krishnamurthy on 07-01-2022 RBC (Bld) [#/Vol] 4.62 10*6/uL 4.2-5.4 [facility] Blood hemoglobin measurement (mass/volume)Ordered By: Dr. Krishnamurthy on 07-01-2022 Hemoglobin (Bld) [Mass/Vol] 13.2 g/dL 12.0-15.0 [facility] Blood lymphocytes/100 leukoc ytesOrdered By: Dr. Krishnamurthy on 07-01-2022 Lymphocytes/100 WBC (Bld) 24.9 % 19-41 [facility] Blood monocytes/100 leukocyt esOrdered By: Dr. Krishnamurthy on 07-01-2022 Monocytes/100 WBC (Bld) 5.1 % 0-10 [facility] Blood platelet mean volumeOr dered By: Dr. Krishnamurthy on 07-01-2022 Platelet mean volume (Bld) [Entitic vol] 9.7 fL 6.2-12.0 [facility] Determination of erythrocyte mean corpuscular volume (MCV)Ordered By: Dr. Krishnamurthy on 07-01-2022 MCV (RBC) [Entitic vol] 87.7 fL 81-99 [facility] Hematocrit Auto (Bld) [Volum e fraction]Ordered By: Dr. Krishnamurthy on 07-01-2022 Hematocrit (Bld) [Volume fraction] 40.5 % 37-47 [facility] - Chemistry and C hemistry - challengeOrdered By: Dr. Krishnamurthy on 07-01-2022 CO2 [Moles/Vol] 26.0 mmol/L 21.0-32.0 [facility] Urea nitrogen/Creatinine [Mass ratio] 16.4 mg/mg 10-20 [facility] - Hematology and Cell countsOrdered By: Dr. Krishnamurthy on 07-01-2022 Erythrocyte distribution width (RBC) [Entitic vol] 39.4 fL 35.1-43.9 [facility] Erythrocyte distribution width (RBC) [Ratio] 12.3 % 11.6-14.6 [facility] Immature granulocytes/100 WBC (Bld) 0.300 % 0.0-0.9 [facility] Comment on above: IG% - Immature Granu locytes (promyelocytes, myelocytes and metamyelocytes) > 1% indicates that a LEFT SHIFT is Present. MCH (RBC) [Entitic mass] 28.6 pg 27.0-32.0 [facility] Nucleated RBC/100 WBC (Bld) [Ratio] 0 % 0-5 [facility] MCHC Auto (RBC) [Mass/Vol]Or dered By: Dr. Krishnamurthy on 07-01-2022 MCHC (RBC) [Mass/Vol] 32.6 g/dL 32-36 [facility] No Panel InformationOrdered By: Dr. Krishnamurthy on 07-01-2022 Estimated GFR (MDRD) Amer 101 mL/min >60 [facility] Comment on above: GFR Calc Estimated GFR (MDRD) Non-Af Amer 84 mL/min >60 [facility] Comment on above: Non- GFR Calc Thyroid Stimulating Hormone (TSH) 1.27 uIU/mL 0.358-3.74 [facility] Platelets bldOrdered By: Dr. Krishnamurthy on 07-01-2022 Platelets (Bld) [#/Vol] 318 10*3/uL 150-450 [facility] Serum or plasma calcium glenda urement (mass/volume)Ordered By: Dr. Krishnamurthy on 07-01-2022 Calcium [Mass/Vol] 9.4 mg/dL 8.5-10.1 [facility] Serum or plasma creatinine m easurement (mass/volume)Ordered By: Dr. Krishnamurthy on 07-01-2022 Creatinine [Mass/Vol] 0.73 mg/dL 0.55-1.02 [facility] Comment on above: The validity of the calculated GFR & GFRAA in patients over 70 years has not been determined. Clinical correlation is essential. Serum or plasma urea nitroge n measurement (mass/volume)Ordered By: Dr. Krishnamurthy on 07-01-2022 Urea nitrogen [Mass/Vol] 12 mg/dL 7-18 [facility] Thin prep Papanicolaou smear with manual screeningOrdered By: Dr. Krishnamurthy on 07-01-2022 Thin prep Papanicolaou smear with manual screening 11 5-15 [facility] Basophil percentageon 2021 Bilirubin [Mass/Vol] 0.50 mg/dL 0.20-1.00 [facility] Work Phone: Comment on above: For patients on eltr ombopag therapy, use of Dimension [place] TBIL is not recommended. Cholesterol [Mass/Vol] 150 mg/dL <200 [facility] Work Phone: Comment on above: <200 mg/dL Desirable 200-240 mg/dL Borderline >240 mg/dL High Risk Protein [Mass/Vol] 6.8 g/dL 6.4-8.2 [facility] Work Phone: Triglyceride [Mass/Vol] 63 mg/dL <199 [facility] Work Phone: Comment on above: The drugs N-Acetylcy steine and Metamizole may falsely depress this assay.Serum Triglycerides Reference Interval Normal <150 mg/dL Borderline high 150 - 199 mg/dL High 200 - 499 mg/dL Very High > or = 500 mg/dL Direct bilirubinon 2 Bilirubin.direct [Mass/Vol] 0.14 mg/dL 0.00-0.30 [facility] Work Phone: Laboratory - Chemistry and C hemistry - challengeon 01-11-2022 ALP [Catalytic activity/Vol] 76 U/L 45-117 [facility] Work Phone: ALT [Catalytic activity/Vol] 26 U/L 13-56 [facility] Work Phone: Globulin (S) [Mass/Vol] 3.0 g/dL 2.2-4.2 [facility] Work Phone: Serum or plasma albumin glenda urement (mass/volume)on 01-11-2022 Albumin [Mass/Vol] 3.8 g/dL 3.2-5.0 [facility] Work Phone: Serum or plasma cholesterol in HDL measurement (mass/volume)on 01-11-2022 Cholesterol in HDL [Mass/Vol] 65 mg/dL >40 [facility] Work Phone: Comment on above: The drugs N-Acetylcy steine and Metamizole may falsely depress this assay. Reference Range HDL <40 mg/dL Low HDL Cholesterol HDL >or= 60 mg/dL High HDL Cholesterol Serum or plasma cholesterol in VLDL measurement (mass/volume)on 01-11-2022 Cholesterol in VLDL [Mass/Vol] 13 mg/dL 5-40 [facility] Work Phone: Serum or plasma low density lipoprotein (LDL) cholesterol measurement (mass/volume)on 01-11-2022 Cholesterol in LDL [Mass/Vol] 72 mg/dL 0-130 [facility] Work Phone: Thin prep Papanicolaou smear with manual screeningon 01-11-2022 Thin prep Papanicolaou smear with manual screening 19 U/L 15-37 [facility] Work Phone: Laboratory - Microbiology an d Antimicrobial susceptibilityon 10-15-2021 SARS-CoV-2 (COVID-19) RNA HERON+probe Ql (Unsp spec) Not detected [facility] Work Phone: No Panel Informationon 10-15 Influenza Types A,B Rapid (Clinic) Not detected [facility] Work Phone: CNOVon 03-29-2021 CNOV Office Visit (AGCARDPOB) YASMINE BRUNSON ([id number]) 1955 F Date Time Provider Department 03/29/21 11:20 AM DEVONTE ROMERO During your visit today, we recorded the following information about you: Pulse Blood pressure Weight Height 84/minute 120/74 50.8 kg 1.702 m Devonte Romero MD 03/29/2021 8:34 PM Signed PRIMARY CARE PHYSICIAN: Joelle Krishnamurthy MD ([facility]) [address] [facility] [address] [place] [address] REFERRING PHYSICIAN: David Lo MD ([facility]) [address] [facility] [address] Patient Care Team: Joelle Krishnamurthy as PCP - General David Lo as Specialty Executive Vice President Of Sales (Cardiology) Marisela Garvey MD as Specialty Executive Vice President Of Sales (Endocrinology) CHIEF COMPLAINT: Evaluation of arrhythmia HISTORY OF PRESENT ILLNESS: Ms. Brunson is a 66 year old female who presents today with her for evaluation of arrhythmia. She has a prior history of supraventricular tachycardia (SVT) and underwent successful catheter ablation in 1998 at [facility]. Those records are not available and she [...] - APPENDECTOMY - COLONOSCOP W/ OR W/O [facility] SPEC 12/10/2005 Colonoscopy - COLONOSCOP W/ OR W/O [facility] SPEC 10/04/2011 Colonoscopy - COLONOSCOPY 2017 - D+C 1984 Irregular periods - EPS: SVT ABLATION 11/24/1998 catheter ablation for SVT, likely RF catheter ablation; [facility] SOCIAL HISTORY Social History Tobacco Use - [...] (more content not included)... Normal [facility] CNOVon 11-25-2018 [facility] Office Visit (GYNML) YASMINE BRUNSON ([id number]) 1955 F Date Time Provider Department 11/25/18 11:00 AM BOB SMITH GYN During your visit today, we recorded the following information about you: Temperature Pulse Blood pressure Weight 97.7 degrees 63/minute 136/65 50.2 kg Height 1.689 m Bob Smith MD 11/30/2018 12:51 PM Signed Gynecologic Oncology [facility] Consultation Re: Yasmine Brunson [facility]#: [id number] 11/25/[address] Patsy Lopez [...] She was admitted over the weekend at [facility] with an L1 vertebral compression fracture. Patient [...] 125: 12. She has been referred to [facility] for evaluation and management. PRIOR TREATMENT AND DATE: 1)N/A PATHOLOGY: IMAGIN11/15/2018 MRI - LUMBAR SPINE: OSH, Care Everywhere IMPRESSION: 1. Acute 25% L1 [...] - APPENDECTOMY - COLONOSCOP W/ OR W/O [facility] SPEC 12/10/2005 Colonoscopy - COLONOSCOP W/ OR W/O [facility] SPEC 10/04/2011 Colonoscopy - DANDC 1985 [...] exam ABDOMEN: Abdomen soft, non-tender, no hepatosplenomegaly. Senior Interactive Producer offered:Yes PROCEDURES: None ASSESSMENT: 63 yr old [...] sent to: Patsy Lopez MD [address] [facility] [id number] CC: Joelle Krishnamurthy MD (PCP) Deana Paez, RUBIA, RN 11/25/2018 11:20 AM Signed Pt given surgical information packet and with # of inside sales coordinator for Dr. Smith, [facility]. Pt to be scheduled @ [facility] for early December. Reviewed with pt to stop all NSAIDS and /or ASA/ASA like products 7-10 days prior to surgical date. Also instructed to schedule PAT as soon as surgery is scheduled. Pt verbalized understanding. Referring Provider: PATSY LOPEZ [[id number]] Allergies As of Date: 11/25/2018 (No Known [...] surgical information packet and with # of inside sales coordinator for Dr. Smith, [facility]. Pt to be scheduled @ [facility] for early December. Reviewed with pt to stop all NSAIDS and /or ASA/ASA like products 7-10 days prior to surgical date. Also instructed to schedule PAT as soon as surgery is scheduled. Pt verbalized understanding. Encounter Status:Closed by BOB SMITH MD on 11/30/18 Normal [facility] PROGRESSon 11-24-2018 PROGRESS HNO ID: [id number] Author: Bob Smith Service: ? Author Type: Physician Type: Progress Notes Filed: 11/30/2018 12:51 PM Note Text: Gynecologic Oncology [facility] Consultation Re: Yasmine Brunson [facility]#: [id number] 11/25/[address] Patsy Lopez [...] She was admitted over the weekend at [facility] with an L1 vertebral compression fracture. Patient [...] 125: 12. She has been referred to [facility] for evaluation and management. PRIOR TREATMENT AND DATE: 1)N/A PATHOLOGY: IMAGIN11/15/2018 MRI - LUMBAR SPINE: OSH, Care Everywhere IMPRESSION: 1. Acute 25% L1 [...] - APPENDECTOMY - COLONOSCOP W/ OR W/O [facility] SPEC 12/10/2005 Colonoscopy - COLONOSCOP W/ OR W/O [facility] SPEC 10/04/2011 Colonoscopy - DANDC 1985 [...] exam ABDOMEN: Abdomen soft, non-tender, no hepatosplenomegaly. Senior Interactive Producer offered:Yes PROCEDURES: None ASSESSMENT: 63 yr old [...] sent to: Patsy Lopez MD [address] [facility] [address] CC: Joelle Krishnamurthy MD (PCP) Normal [facility] .Auto Diffon 11-15-2018 Ammonia mass conc (P) 0.60 10 3/mcL Normal 0.09-1.40 [facility] ([place]) Comment on above: Performed By: #### B MP, GFR, CBC, ADIFF, ANEU #### [place] [address] Basophils #/vol (Bld) 0.00 10 3/mcL Normal 0.00-0.27 [facility] ([place]) Comment on above: Performed By: #### B MP, GFR, CBC, ADIFF, ANEU #### [address] [address] Basophils/100 WBC (Bld) 0.3 % Normal 0.0-2.5 A [facility] ([place]) Comment on above: Performed By: #### B MP, GFR, CBC, ADIFF, ANEU #### [address] [address] Eosinophils #/vol (Bld) 0.00 10 3/mcL Normal 0.00-0.65 [facility] ([place]) Comment on above: Performed By: #### B MP, GFR, CBC, ADIFF, ANEU #### [address] [address] Eosinophils/100 WBC (Bld) 0.4 % Normal 0.0-6.0 [facility] ([place]) Comment on above: Performed By: #### B MP, GFR, CBC, ADIFF, ANEU #### [address] [address] Lymphocytes #/vol (Bld) 2.40 10 3/mcL Normal 0.90-4.32 [facility] ([place]) Comment on above: Performed By: #### B MP, GFR, CBC, ADIFF, ANEU #### [address] [address] Lymphocytes/100 WBC (Bld) 22.4 % Normal 20.0-40.0 [facility] ([place]) Comment on above: Performed By: #### B MP, GFR, CBC, ADIFF, ANEU #### [address] [address] Monocytes/100 WBC (Bld) 6.0 % Normal 2.0-13.0 A [facility] ([place]) Comment on above: Performed By: #### B MP, GFR, CBC, ADIFF, ANEU #### [address] [address] Neutrophils/100 WBC (Bld) 70.9 % Normal 50.0-75.0 [facility] ([place]) Comment on above: Performed By: #### B MP, GFR, CBC, ADIFF, ANEU #### [address] [address] .GFRon 11-15-2018 GFR >60 Normal [facility] ([place]) Comment on above: Result Comment: GFR Population [...] B MP, GFR, CBC, ADIFF, ANEU #### [address] [address] GFR Non- >60 Normal [facility] ([place]) Comment on above: Result Comment: GFR Population [...] B MP, GFR, CBC, ADIFF, ANEU #### [address] [address] .NEUABSon 11-15-2018 Neutrophils #/vol (Bld) 7.50 10 3/mcL Normal 2.25-8.10 [facility] ([place]) Comment on above: Performed By: #### C BC, ADIFF, ANEU, BMP, GFR #### [place] [address] BMPon 11-15-2018 Creatinine mass conc 0.76 mg/dL Normal 0.50-1.20 [facility] ([place]) Comment on above: Performed By: #### B MP, GFR, CBC, ADIFF, ANEU #### [place] [address] Urea nitrogen/Creatinine mass ratio 11.8 ratio Normal 10.0-22.0 [facility] ([place]) Comment on above: Performed By: #### B MP, GFR, CBC, ADIFF, ANEU #### [place] [address] Calcium mass conc 8.6 mg/dL Normal 8.4-10.1 [facility] ([place]) Comment on above: Performed By: #### B MP, GFR, CBC, ADIFF, ANEU #### [place] [address] Chloride molar conc 106 mmol/L Normal 98-110 [facility] ([place]) Comment on above: Performed By: #### B MP, GFR, CBC, ADIFF, ANEU #### [place] [address] CO2 molar conc 25 mmol/L Normal 22-32 [facility] ([place]) Comment on above: Performed By: #### B MP, GFR, CBC, ADIFF, ANEU #### [place] [address] Electrolyte Balance 6.0 mEq/L Normal 4.0-15.0 [facility] ([place]) Comment on above: Performed By: #### B MP, GFR, CBC, ADIFF, ANEU #### [place] [address] Glucose mass conc 98 mg/dL Normal 82-115 [facility] ([place]) Comment on above: Performed By: #### B MP, GFR, CBC, ADIFF, ANEU #### [place] [address] Potassium molar conc 4.0 mmol/L Normal 3.5-5.0 [facility] ([place]) Comment on above: Performed By: #### B MP, GFR, CBC, ADIFF, ANEU #### [place] [address] Sodium molar conc 137 mmol/L Normal 136-145 [facility] ([place]) Comment on above: Performed By: #### B MP, GFR, CBC, ADIFF, ANEU #### [place] [address] Urea nitrogen mass conc 9.0 mg/dL Normal 8.0-22.0 A [facility] ([place]) Comment on above: Performed By: #### B MP, GFR, CBC, ADIFF, ANEU #### [place] [address] CBCon 11-15-2018 Erythrocyte distribution width Ratio (RBC) 13.0 % Normal 11.5-15.5 [facility] ([place]) Comment on above: Performed By: #### B MP, GFR, CBC, ADIFF, ANEU #### [place] [address] Hematocrit Volume Fraction (Bld) 33.9 % Low 34.0-46.0 [facility] ([place]) Comment on above: Performed By: #### B MP, GFR, CBC, ADIFF, ANEU #### [place] [address] Hemoglobin mass conc (Bld) 11.8 G/dL Low 12.0-16.0 [facility] ([place]) Comment on above: Performed By: #### B MP, GFR, CBC, ADIFF, ANEU #### [place] [address] MCH Entitic mass (RBC) 29.5 pg Normal 27.0-33.0 [facility] ([place]) Comment on above: Performed By: #### B MP, GFR, CBC, ADIFF, ANEU #### [place] [address] MCHC mass conc (RBC) 34.7 G/dL Normal 32.0-36.0 [facility] ([place]) Comment on above: Performed By: #### B MP, GFR, CBC, ADIFF, ANEU #### [place] [address] MCV Entitic volume (RBC) 84.8 fL Normal 80.0-99.0 [facility] ([place]) Comment on above: Performed By: #### B MP, GFR, CBC, ADIFF, ANEU #### [place] [address] Platelet mean volume Entitic volume (Bld) 8.1 fL Normal 6.6-10.5 [facility] ([place]) Comment on above: Performed By: #### B MP, GFR, CBC, ADIFF, ANEU #### [place] [address] Platelets #/vol (Bld) 229 10 3/mcL Normal 150-450 A [facility] ([place]) Comment on above: Performed By: #### B MP, GFR, CBC, ADIFF, ANEU #### [place] [address] RBC #/vol (Bld) 3.99 10 6/mcL Low 4.10-5.30 [facility] ([place]) Comment on above: Performed By: #### B MP, GFR, CBC, ADIFF, ANEU #### [place] [address] WBC #/vol (Bld) 10.60 10 3/mcL Normal 4.50-10.80 [facility] ([place]) Comment on above: Performed By: #### B MP, GFR, CBC, ADIFF, ANEU #### [place] [address] MRI SPINE LUMBAR W/O CONTRAS Ton 11-15-2018 [...] it is assumed that there are 5 [id number], lumbar-type vertebrae, and the most caudal fully [...] PM Sign Date: 11/15/2018 2:13:40 PM Normal [facility] ([place]) [place] PELVIS NON-OB W/TRANSVAGI NALon 11-15-2018 US [...] PM Sign Date: 11/15/2018 5:19:54 PM Normal [facility] ([place]) .Auto Diffon 11-14-2018 Ammonia mass conc (P) 0.40 10 3/mcL Normal 0.09-1.40 [facility] ([place] Comment on above: Performed By: #### C BC, ADIFF, ANEU, BMP, GFR #### [address] [address] Basophils #/vol (Bld) 0.00 10 3/mcL Normal 0.00-0.27 [facility] ([place] Comment on above: Performed By: #### C BC, ADIFF, ANEU, BMP, GFR #### [address] [address] Basophils/100 WBC (Bld) 0.1 % Normal 0.0-2.5 A [facility] ([place] Comment on above: Performed By: #### C BC, ADIFF, ANEU, BMP, GFR #### [address] [address] Eosinophils #/vol (Bld) 0.00 10 3/mcL Normal 0.00-0.65 [facility] ([place] Comment on above: Performed By: #### C BC, ADIFF, ANEU, BMP, GFR #### [address] [address] Eosinophils/100 WBC (Bld) 0.0 % Normal 0.0-6.0 [facility] ([place] Comment on above: Performed By: #### C BC, ADIFF, ANEU, BMP, GFR #### [address] [address] Lymphocytes #/vol (Bld) 1.00 10 3/mcL Normal 0.90-4.32 [facility] ([place] Comment on above: Performed By: #### C BC, ADIFF, ANEU, BMP, GFR #### [address] [address] Lymphocytes/100 WBC (Bld) 6.0 % Low 20.0-40.0 [facility] ([place] Comment on above: Performed By: #### C BC, ADIFF, ANEU, BMP, GFR #### [address] [address] Monocytes/100 WBC (Bld) 2.3 % Normal 2.0-13.0 A [facility] ([place] Comment on above: Performed By: #### C BC, ADIFF, ANEU, BMP, GFR #### [address] [address] Neutrophils/100 WBC (Bld) 91.6 % High 50.0-75.0 [facility] ([place] Comment on above: Performed By: #### C BC, ADIFF, ANEU, BMP, GFR #### [address] [address] .GFRon 11-14-2018 GFR Non- >60 Normal [facility] ([place] Comment on above: Result Comment: GFR Population [...] C BC, ADIFF, ANEU, BMP, GFR #### [address] [address] GFR >60 Normal [facility] ([place]) Comment on above: Result Comment: GFR Population [...] C BC, ADIFF, ANEU, BMP, GFR #### [place] [address] .NEUABSon 11-14-2018 Neutrophils #/vol (Bld) 15.90 10 3/mcL High 2.25-8.1 0 [facility] ([place]) Comment on above: Performed By: #### C BC, ADIFF, ANEU, BMP, GFR #### [place] [address] BMPon 11-14-2018 Calcium mass conc 8.5 mg/dL Normal 8.4-10.1 [facility] ([place] Comment on above: Performed By: #### C BC, ADIFF, ANEU, BMP, GFR #### [place] [address] Chloride molar conc 106 mmol/L Normal 98-110 [facility] ([place]) Comment on above: Performed By: #### C BC, ADIFF, ANEU, BMP, GFR #### [place] [address] CO2 molar conc 24 mmol/L Normal 22-32 [facility] ([place] Comment on above: Performed By: #### C BC, ADIFF, ANEU, BMP, GFR #### [place] [address] Creatinine mass conc 0.68 mg/dL Normal 0.50-1.20 [facility] ([place]) Comment on above: Performed By: #### C BC, ADIFF, ANEU, BMP, GFR #### [place] [address] Electrolyte Balance 10.0 mEq/L Normal 4.0-15.0 [facility] ([place] Comment on above: Performed By: #### C BC, ADIFF, ANEU, BMP, GFR #### [address] [address] Glucose mass conc 135 mg/dL High 82-115 [facility] ([place] Comment on above: Performed By: #### C BC, ADIFF, ANEU, BMP, GFR #### [address] [address] Potassium molar conc 4.1 mmol/L Normal 3.5-5.0 [facility] ([place] Comment on above: Performed By: #### C BC, ADIFF, ANEU, BMP, GFR #### [address] [address] Sodium molar conc 140 mmol/L Normal 136-145 [facility] ([place] Comment on above: Performed By: #### C BC, ADIFF, ANEU, BMP, GFR #### [place] [address] Urea nitrogen mass conc 14.0 mg/dL Normal 8.0-22.0 A [facility] ([place]) Comment on above: Performed By: #### C BC, ADIFF, ANEU, BMP, GFR #### [place] [address] Urea nitrogen/Creatinine mass ratio 20.6 ratio Normal 10.0-22.0 [facility] ([place] Comment on above: Performed By: #### C BC, ADIFF, ANEU, BMP, GFR #### [address] [address] CBCon 11-14-2018 Erythrocyte distribution width Ratio (RBC) 13.2 % Normal 11.5-15.5 [facility] ([place] Comment on above: Performed By: #### C BC, ADIFF, ANEU, BMP, GFR #### [address] [address] Hematocrit Volume Fraction (Bld) 40.0 % Normal 34.0-46.0 [facility] ([place] Comment on above: Performed By: #### C BC, ADIFF, ANEU, BMP, GFR #### [address] [address] Hemoglobin mass conc (Bld) 13.3 G/dL Normal 12.0-16.0 [facility] ([place] Comment on above: Performed By: #### C BC, ADIFF, ANEU, BMP, GFR #### [place] [address] MCH Entitic mass (RBC) 28.7 pg Normal 27.0-33.0 [facility] ([place]) Comment on above: Performed By: #### C BC, ADIFF, ANEU, BMP, GFR #### [place] [address] MCHC mass conc (RBC) 33.3 G/dL Normal 32.0-36.0 [facility] ([place]) Comment on above: Performed By: #### C BC, ADIFF, ANEU, BMP, GFR #### [place] [address] MCV Entitic volume (RBC) 86.2 fL Normal 80.0-99.0 [facility] ([place] Comment on above: Performed By: #### C BC, ADIFF, ANEU, BMP, GFR #### [place] [address] Platelet mean volume Entitic volume (Bld) 8.0 fL Normal 6.6-10.5 [facility] ([place]) Comment on above: Performed By: #### C BC, ADIFF, ANEU, BMP, GFR #### [place] [address] Platelets #/vol (Bld) 268 10 3/mcL Normal 150-450 A [facility] ([place] Comment on above: Performed By: #### C BC, ADIFF, ANEU, BMP, GFR #### [place] [address] RBC #/vol (Bld) 4.65 10 6/mcL Normal 4.10-5.30 [facility] ([place]) Comment on above: Performed By: #### C BC, ADIFF, ANEU, BMP, GFR #### [place] [address] WBC #/vol (Bld) 17.30 10 3/mcL High 4.50-10.80 [facility] ([place]) Comment on above: Performed By: #### C BC, ADIFF, ANEU, BMP, GFR #### [place] [address] XR SPINE LUMBOSACRAL MINIMUM 4 VIEWSon 11-14-2018 [...] AM Sign Date: 11/14/2018 10:00:17 AM Normal [facility] ([place]) Vital Signs Date Time Vital Sign Value Performing Clinician Janetti keith 02-08-2025 08:24-0400 Body height 170.[address] Joelle Krishnamurthy MD Work Phone: [facility] 02-08-2025 08:24-0400 Body mass index (BMI) [Ratio] 16.1 kg/m2 Dr. Joelle Krishnamurthy MD Work Phone: [facility] 02-08-2025 08:24-0400 Body weight 46.[address] Joelle Krishnamurthy MD Work Phone: [facility] 02-08-2025 08:24-0400 Diastolic blood pressure 71 mm[Hg] Dr. Joelle Krishnamurthy MD Work Phone: [facility] 02-08-2025 08:24-0400 Heart rate 68 /min Dr. Joelle Krishnamurthy MD Work Phone: [facility] 02-08-2025 08:24-0400 Respiratory rate 16 /min Dr. Joelle Krishnamurthy MD Work Phone: [facility] 02-08-2025 08:24-0400 Systolic blood pressure 123 mm[Hg] Dr. Joelle Krishnamurthy MD Work Phone: [facility] 10-04-2024 08:57-0400 Body height 170.[address] Joelle Krishnamurthy MD Work Phone: [facility] 10-04-2024 08:57-0400 Body mass index (BMI) [Ratio] 16.6 kg/m2 Dr. Joelle Krishnamurthy MD Work Phone: [facility] 10-04-2024 08:57-0400 Body weight 48.[address] Joelle Krishnamurthy MD Work Phone: 5(683)080-994794 [address] 10-04-2024 08:57-0400 Diastolic blood pressure 70 mm[Hg] Dr. Joelle Krishnamurthy MD Work Phone: 4(727)234-287694 [address] 10-04-2024 08:57-0400 Heart rate 70 /min Dr. Joelle Krishnamurthy MD Work Phone: 7(581)435-878694 [address] 10-04-2024 08:57-0400 SaO2% (BldA) [Mass fraction] 99 % Dr. Joelel Krishnamurthy MD Work Phone: 6(964)705-523394 [address] 10-04-2024 08:57-0400 Systolic blood pressure 124 mm[Hg] Dr. Joelle Krishnamurthy MD Work Phone: 2(332)140-250229 [place] [address] 07-28-2023 10:52-0500 Body height 170.[address] Joelle Krishnamurthy Work Phone: 7(437)899-358629 [place] [address] 07-28-2023 10:52-0500 Body mass index (BMI) [Ratio] 16.4 kg/m2 Dr. Joelle Krishnamurthy Work Phone: 3(189)471-018429 [place] [address] 07-28-2023 10:52-0500 Body weight 47.[address] Joelle Krishnamurthy Work Phone: [facility] 07-28-2023 10:52-0500 Diastolic blood pressure 78 mm[Hg] Dr. Joelle Krishnamurthy Work Phone: [facility] 07-28-2023 10:52-0500 Heart rate 70 /min Dr. Joelle Krishnamurthy Work Phone: [facility] 07-28-2023 10:52-0500 Respiratory rate 16 /min Dr. Joelle Krishnamurthy Work Phone: [facility] 07-28-2023 10:52-0500 Systolic blood pressure 122 mm[Hg] Dr. Joelle Krishnamurthy Work Phone: [facility] 06-26-2023 11:33-0500 Body height 170.[address] Joelle Krishnamurthy Work Phone: 9(082)506-392329 [place] [address] 06-26-2023 11:33-0500 Body mass index (BMI) [Ratio] 16.4 kg/m2 Dr. Joelle Krishnamurthy Work Phone: [facility] 06-26-2023 11:33-0500 Body weight 47.[address] Joelle Krishnamurthy Work Phone: 4(101)220-890229 [place] [address] 06-26-2023 11:33-0500 Diastolic blood pressure 58 mm[Hg] Dr. Joelle Krishnamurthy Work Phone: [facility] 06-26-2023 11:33-0500 Heart rate 70 /min Dr. Joelle Krishnamurthy Work Phone: 3(570)385-427729 [place] [address] 06-26-2023 11:33-0500 Respiratory rate 16 /min Dr. Joelle Krishnamurthy Work Phone: [facility] 06-26-2023 11:33-0500 Systolic blood pressure 124 mm[Hg] Dr. Joelle Krishnamurthy Work Phone: [facility] 04-07-2023 14:01-0400 Body height 170.18 cm [facility] 04-07-2023 14:01-0400 Body mass index (BMI) [Ratio] 17.2 kg/m2 [facility] 04-07-2023 14:01-0400 Body temperature 97.2 [degF] [facility] 04-07-2023 14:01-0400 Body weight 49.89 kg [facility] 04-07-2023 14:01-0400 Diastolic blood pressure 51 mm[Hg] [facility] 04-07-2023 14:01-0400 Heart rate 73 /min [facility] 04-07-2023 14:01-0400 Respiratory rate 16 /min [facility] 04-07-2023 14:01-0400 SaO2% (BldA) [Mass fraction] 99 % [facility] 04-07-2023 14:01-0400 Systolic blood pressure 130 mm[Hg] [facility] 12-06-2022 13:16-0400 Body height 170.[address] Joelle Krishnamurthy Work Phone: 9(197)578-809529 [place] [address] 12-06-2022 13:16-0400 Body mass index (BMI) [Ratio] 16.5 kg/m2 Dr. Joelle Krishnamurthy Work Phone: 3(695)191-593394 [address] 12-06-2022 13:16-0400 Body temperature 98.2 [degF] Dr. Joelle Krishnamurthy Work Phone: [facility] 12-06-2022 13:16-0400 Body weight 47.[address] Joelle Krishnamurthy Work Phone: 6(922)237-438194 [address] 12-06-2022 13:16-0400 Diastolic blood pressure 86 mm[Hg] Dr. Joelle Krishnamurthy Work Phone: [facility] 12-06-2022 13:16-0400 Heart rate 70 /min Dr. Joelle Krishnamurthy Work Phone: [facility] 12-06-2022 13:16-0400 Respiratory rate 16 /min Dr. Joelle Krishnamurthy Work Phone: [facility] 12-06-2022 13:16-0400 SaO2% (BldA) [Mass fraction] 97 % Dr. Joelle Krishnamurthy Work Phone: [facility] 12-06-2022 13:16-0400 Systolic blood pressure 107 mm[Hg] Dr. Jolele Krishnamurthy Work Phone: [facility] 01-07-2022 13:04-0400 Body height 170.[address] Joelle Krishnamurthy Work Phone: [facility] Work Phone: 01-07-2022 13:04-0400 Body mass index (BMI) [Ratio] 17.2 kg/m2 Dr. Joelle Krishnamurthy Work Phone: [facility] Work Phone: 01-07-2022 13:04-0400 Body weight 49.[address] Joelle Krishnamurthy Work Phone: [facility] Work Phone: 01-07-2022 13:04-0400 Diastolic blood pressure 60 mm[Hg] Dr. Joelle Krishnamurthy Work Phone: [facility] Work Phone: 01-07-2022 13:04-0400 Heart rate 80 /min Dr. Joelle Krishnamurthy Work Phone: [facility] Work Phone: 01-07-2022 13:04-0400 Respiratory rate 16 /min Dr. Joelle Krishnamurthy Work Phone: [facility] Work Phone: 01-07-2022 13:04-0400 Systolic blood pressure 140 mm[Hg] Dr. Joelle Krishnamurthy Work Phone: [facility] Work Phone: 10-15-2021 15:06-0400 Body temperature 97.8 [degF] Dr. Joelle Krishnamurthy Work Phone: [facility] Work Phone: 10-15-2021 15:06-0400 Diastolic blood pressure 62 mm[Hg] Dr. Joelle Krishnamurthy Work Phone: [facility] Work Phone: 10-15-2021 15:06-0400 Heart rate 71 /min Dr. Joelle Krishnamurthy Work Phone: [facility] Work Phone: 10-15-2021 15:06-0400 Respiratory rate 16 /min Dr. Joelle Krishnamurthy Work Phone: [facility] Work Phone: 10-15-2021 15:06-0400 SaO2% (BldA) [Mass fraction] 95 % Dr. Joelle Krishnamurthy Work Phone: [facility] Work Phone: 10-15-2021 15:06-0400 Systolic blood pressure 120 mm[Hg] Dr. Joelle Krishnamurthy Work Phone: [facility] Work Phone: Encounters Encounter Date Encounter Type Care Provider Facility Start: 02-08-2025 End: 02-08-2025 Patient encounter procedure Walter Park HYDROTEL OPERATOR-C -[facility] Work Phone: Start: 02-08-2025 End: 02-08-[address] Joelle Krishnamurthy MD Work Phone: -[facility] Start: 02-02-2025 ambulatory Joelle Krishnamurthy Facility: [facility] Start: 12-01-2024 End: 12-01-[address] Joelle Krishnamurthy MD Work Phone: [facility] Work Phone: Start: 12-01-2024 End: 12-01-[address] Sal Alexis MD -Laboratory Work Phone: Start: 12-01-2024 End: 12-01-2024 ambulatory [facility] Facility:[facility] Start: 10-04-2024 End: 10-04-[address] Sal Alexis MD -[facility] Work Phone: Start: 10-04-2024 End: 10-04-2024 ambulatory [facility] Facility:[facility] Start: 06-25-2024 End: 06-25-2024 ambulatory Joelle Krishnamurthy Facility:[facility] Start: 06-21-2024 End: 06-21-2024 ambulatory Walter H Roof HYDROTEL OPERATOR Facility:[facility] Start: 06-02-2024 End: 06-02-2024 ambulatory Joelle Krishnamurthy Facility:[facility] Start: 04-08-2024 End: 04-08-2024 ambulatory Joelle Krishnamurthy Facility:[facility] Start: 08-11-2023 End: 08-11-[address] Joelle Krishnamurthy Work Phone: [facility] Work Phone: Start: 08-11-2023 End: 08-11-[address] Joelle Krishnamurthy Work Phone: [facility]-Pulmonary Services/Neurology Work Phone: Start: 07-28-2023 End: 07-28-[address] Joelle Krishnamurthy Work Phone: [facility] Work Phone: Start: 07-24-2023 Non-patient / Non-visit Dr. Joelle Krishnamurthy Work Phone: [facility] Work Phone: Start: 07-24-2023 Non-patient / Non-visit Dr. Joelle Krishnamurthy Work Phone: [facility] Start: 07-24-2023 End: 07-24-[address] Joelle Krishnamurthy Work Phone: [facility] Work Phone: Start: 07-24-2023 End: 07-24-[address] [facility] Start: 06-26-2023 End: 06-26-[address] Joelle Krishnamurthy Work Phone: [facility] Work Phone: Start: 06-23-2023 End: 06-23-[address] Joelle Krishnamurthy Work Phone: [facility] Work Phone: Start: 06-23-2023 End: 06-23-[address] Joelle Krishnamurthy Work Phone: [facility]-Outpatient Breast Imaging Work Phone: Start: 05-26-2023 End: 05-26-[address] Joelle Krishnamurthy Work Phone: [facility] Work Phone: Start: 05-26-2023 End: 05-26-[address] Joelle Krishnamurthy Work Phone: [facility] Work Phone: Start: 05-01-2023 End: 05-01-[address] Joelle Krishnamurthy Work Phone: [facility] Work Phone: Start: 05-01-2023 End: 05-01-[address] Joelle Krishnamurthy Work Phone: [facility]-Laboratory Work Phone: Start: 04-12-2023 End: 04-12-[address] Joelle Krishnamurthy Work Phone: [facility] Work Phone: Start: 04-07-2023 End: 04-07-2023 ambulatory [facility] Work Phone: Start: 04-07-2023 End: 04-07-2023 Patient encounter procedure [facility] Out Work Phone: Start: 12-06-2022 End: 12-06-[address] Joelle Krishnamurthy Work Phone: [facility] Work Phone: Start: 12-06-2022 End: 12-06-[address] Joelle Krishnamurthy Work Phone: [facility] Work Phone: Start: 07-29-2022 End: 07-29-2022 ambulatory [facility] Work Phone: Start: 07-29-2022 End: 07-29-2022 Patient encounter procedure [facility]-Laboratory Start: 07-01-2022 End: 07-01-2022 ambulatory [facility] Work Phone: Start: 07-01-2022 End: 07-01-2022 Patient encounter [facility] Start: 05-13-2022 End: 05-13-2022 Patient encounter procedure [facility] Start: 01-11-2022 End: 01-11-[address] Joelle Krishnamurthy Work Phone: [facility]-Laboratory Start: 01-07-2022 End: 01-07-[address] Joelle Krishnamurthy Work Phone: [facility] Start: 10-15-2021 End: 10-15-[address] Joelle Krishnamurthy Work Phone: [facility] Procedures Date Procedure Procedure Detail Performing Clinician Start: 12-01-2024 Vitamin D, 25-hydrox y measurement Dr. Joelle Krishnamurthy MD Work Phone: Comment on above: Vitamin D StatusDefi ciency: <20 ng/mL (50nmol/L)Insufficiency: 20-30 ng/mL (50-75 nmol/L)Sufficiency: 30-100 ng/mL (75-250 nmol/L)Toxicity: >100 ng/mL (>250 nmol/L) Start: 06-23-2023 Screening mammography Josh Krishnamurthy Work Phone: Start: 05-26-2023 Plain chest X-ray Dr. Yang Krishnamurthy Work Phone: Start: 05-13-2022 Screening mammography Plan of Treatment Date Care Activity Detail Author Start: 02-08-2025 Evaluation of diagno stic study results [facility] 24 Hour ECG [facility] NM Heart Views W str ess and W radionuclide IV [facility] US Heart [facility] Immunizations Immunization Date Immunization Notes Care Provider Moises mahoney 04-12-2023 influenza, injectabl e, quadrivalent, preservative free Dr. Joelle Krishnamurthy Work Phone: [facility] 03-27-2020 influenza, injectabl e, quadrivalent, preservative free [facility] 03-27-2020 influenza, seasonal, injectable Dr. Joelle Krishnamurthy Work Phone: [facility] 03-10-2014 influenza, injectabl e, quadrivalent, preservative free [facility] 03-10-2014 influenza, seasonal, injectable Dr. Joelle Krishnamurthy Work Phone: [facility] 04-15-[address] Joelle Krishnamurthy Work Phone: [facility] Payers Date Payer Category Payer Self-pay [id number] 2023 Medicare [id number] Private Health Insurance [id number] Unknown [id number] 2.16.8 [id number] Unknown [id number] 2.16.8 [id number] Unknown [id number] 2.16.8 [id number] Unknown [id number] 2.16.8 [id number] Unknown [id number] 2.16.8 [id number] Unknown [id number] 2.16.8 [id number] Unknown [id number] 2.16.8 [id number] Unknown [id number] 2.16.8 [id number] Social History Date Type Detail Facility Start: 01-07-2022 End: 04-12-2023 Tobacco smoking status NHIS Unknown if ever smoked [facility] Start: 1955 Sex Assigned At Female W [facility] Start: 07-28-2023 Tobacco smoking stat us NHIS Never smoked tobacco (finding) [facility] Mental Status Date Assessment Result Facility 04-07-2023 Cognitive function Awake;Alert;A ppropriate;Fol lows Commands [facility] Work Phone: Evaluation note 10-04-2024 Note Date & Type Note Facility 10-04-2024 Evaluation note Diagnosis Onset Date Resolution Mixed hyperlipidemia chronic Apri l 2024 8:54am Osteoporosis chronic October 04, 2024 8:54am [facility] Work Phone: Progress note 03-29-2021 Note Date & Type Note Facility 03-29-2021 Note HNO ID: [id number] Author: Devonte Romero MD Service: ? Author Type: Physician Type: Progress Notes Filed: 03/29/2021 8:34 PM Note Text: PRIMARY CARE PHYSICIAN: Joelle Krishnamurthy MD ([facility]) [address] [facility] [address] [place] [address] REFERRING PHYSICIAN: David Lo MD ([facility]) [address] [facility] [address] [facility] [address] Patient Care Team: Joelle Krishnamurthy as PCP - General David Lo as Specialty Executive Vice President Of Sales (Cardiology) Marisela Garvey MD as Specialty Executive Vice President Of Sales (Endocrinology) CHIEF COMPLAINT: Evaluation of arrhythmia HISTORY OF PRESENT ILLNESS: Ms. Brunson is a 66 year old female who presents today with her for evaluation of arrhythmia. She has a prior history of supraventricular tachycardia (SVT) and underwent successful catheter ablation in 1998 at [facility]. Those records are not available and she [...] - APPENDECTOMY - COLONOSCOP W/ OR W/O [facility] SPEC 12/10/2005 Colonoscopy - COLONOSCOP W/ OR W/O [facility] SPEC 10/04/2011 Colonoscopy - COLONOSCOPY 2017 - D+C 1984 Irregular periods - EPS: SVT ABLATION 11/24/1998 catheter ablation for SVT, likely RF catheter ablation; [facility] SOCIAL HISTORY Social History Tobacco Use - [...] Sk (more content not included)... [facility] Evaluation note 11-14-1998 Note Date & Type Note Facility 11-14-1998 Evaluation note Diagnosis Onset Date Mixed hyperlipidemia chronic Palpitations chronic SVT (supraventricular tachycardia) chronic History of cardiac radiofreq uency ablation November, resolved [facility] Work Phone: Evaluation note 11-14-1998 Note Date & Type Note Facility 11-14-1998 Evaluation note Diagnosis Onset Date Mixed hyperlipidemia chronic Palpitations chronic SVT (supraventricular tachycardia) chronic History of cardiac radiofreq uency ablation November, resolved Palpitations chronic SVT (supraventricular tachycardia) chronic [facility] Work Phone: Evaluation note Note Date & Type Note Facility Evaluation note Diagnosis Onset Date Contact with or suspected ex posure to other viral communicable disease acute Mixed hyperlipidemia chronic Palpitations chronic Premature ventricular contraction chronic SVT (supraventricular tachycardia) chronic [facility] Work Phone: Evaluation note Note Date & Type Note Facility Evaluation note Diagnosis Onset Date Mixed hyperlipidemia chronic Palpitations chronic Premature ventricular contraction chronic SVT (supraventricular tachycardia) chronic [facility] Work Phone: Evaluation note Note Date & Type Note Facility Evaluation note No assessment information availa ble [facility] Work Phone: Evaluation note Note Date & Type Note Facility Evaluation note Diagnosis Onset Date Resolution Mixed hyperlipidemia chronic Augu 2024 8:23am Premature ventricular contraction chronic February 08, 2025 8:23am SVT (supraventricular tachycardia) chronic February 08, 2025 8:23am History of cardiac radiofrequency ablation November, resolved February 08, 2025 8:23am [facility] Work Phone: Reason for referral (narrative) Note Date & Type Note Facility Reason for referral (narrative) No reason for referral information available [facility] Work Phone: Summary Purpose Family History No [...] ablation Palpitations SVT (supraventricular tachycardia) Chief Complaint Admit Date 1 Y FU/Prolia B&B October 04, 2024 8:5 4am 2 ORDERING DRS/BOTH E ORDERS December 01, 2024 7:17am Reason for Visit Admit Date Mixed hyperlipidemia October 04, 2024 8: 54am Osteoporosis October 04, 2024 8:5 4am Chief Complaint Admit Date 2 ORDERING DRS/BOTH E ORDERS December 01, 2024 7:17am 6 M FU February 08, 2025 8: 23am Reason for Visit Admit Date Mixed hyperlipidemia February 08, 2025 8 :23am Premature ventricular contraction February 08, 2025 8:23am SVT (supraventricular tachycardia) Augus t 2024 8:23am History of cardiac radiofrequency ablati on February 08, 2025 8:23am Additional Source Comments INFORMATION SOURCE (unrecogn ized section and content) DATE CREATED AUTHOR 11/23/2018 [facility] ([place]) DATE CREATED AUTHOR AUTHOR'S ORGANIZ ATION 12/10/2018 [facility] DATE CREATED AUTHOR AUTHOR'S ORGANIZ ATION 03/30/2021 [facility] DATE CREATED AUTHOR AUTHOR'S ORGANIZ ATION 02/09/2025 [facility] Goals (unrecognized section and content) Goals may [...] Primary Care Provider, Referrin g Provider Active Rosita WHITE PA Attending Provider Active Team Status: Inactive Member Role Status Dates Dr. Joelle Krishnamurthy MD Primary Care Provider Active Walter Park HYDROTEL OPERATOR, HYDROTEL OPERATOR-C Attending Provider, Referring Pro vider Active Team [...] MD Primary Care Provider Active Joelle Soni HYDROTEL OPERATOR, HYDROTEL OPERATOR-C Attending Provider Active Team Status: Inactive Member Role Status Dates Dr. Joelle Krishnamurthy MD Primary Care Provider Active Dr. Maycol Leal MD Attending Provider, Referring Provider Active Team Status: Active Member Role Status Dates Dr. Joelle Krishnamurthy MD Primary Care Provider Active Team Status: Inactive Member Role Status Dates Dr. Joelle Krishnamurthy MD Primary Care Provider Active Start: October 04, 2024 End: October 04, 2024 Dr. Joelle Krishnamurthy MD Referring Provider Active Start: October 04, 2024 End: October 04, 2024 Dr. Sal Alexis MD Attending Provider Active Sta rt: October 04, 2024 End: October 04, 2024 Team Status: Inactive Member Role Status Dates Dr. Joelle Krishnamurthy MD Primary Care Provider Active Start: December 01, 2024 End: December 01, 2024 Dr. Sal Alexis MD Attending Provider Active Sta rt: December 01, 2024 End: December 01, 2024 Dr. Sal Alexis MD Referring Provider Active Sta rt: December 01, 2024 End: December 01, 2024 Walter Park NP HYDROTEL OPERATOR-C Other Provider Active Start : December 01, 2024 End: December 01, 2024 Team Status: Active Member Role/Relationship Status Dates Dr. Joelle Krishnamurthy MD Primary Care Provider Active Team Status: Inactive Member Role/Relationship Status Dates Dr. Joelle Krishnamurthy MD Primary Care Provider Active Start: December 01, 2024 End: December 01, 2024 Dr. Sal Alexis MD Attending Provider Active Sta rt: December 01, 2024 End: December 01, 2024 Dr. Sal Alexis MD Referring Provider Active Sta rt: December 01, 2024 End: December 01, 2024 Walter Park NP, HYDROTEL OPERATOR-C Other Provider Active Start : December 01, 2024 End: December 01, 2024 Team Status: Inactive Member Role/Relationship Status Dates Dr. Joelle Krishnamurthy MD Primary Care Provider Active Start: February 08, 2025 End: February 08, 2025 Dr. Joelle Krishnamurthy MD Referring Provider Active Start: February 08, 2025 End: February 08, 2025 Walter Park HYDROTEL OPERATOR, HYDROTEL OPERATOR-C Attending Provider Active S tart: February 08, 2025 End: February 08, 2025 FOR RECORDS PERTAINING TO PATIENTS WHO ARE [...] BE BASED ON THE PRIMARY CLINICAL RECORDS. [employer] [facility]. provides no warranty or guarantee of the accuracy or completeness of information in this document.
--- NOTE | 2025-03-09 14:28 | STRESSREP_ITS ---
Stress Test Report Date: 03/09/2025 Procedure: Pharmacologic stress nuclear imaging study Indications: Suspected angina Consent: Per the patient Procedure: The patient underwent pharmacologic (Regadenoson 0.4mg ) evaluation with a peak heart rate of 99 beats per minute (66%predicted maximal heart rate) and a peak blood pressure of 126/74 mmHg. The baseline ECG demonstrated sinus rhythm. The peak pharmacologic ECG did not show any ischemic changes. PVCs noted in recovery. There was no complaint of chest discomfort during pharmacologic infusion or recovery. The patient was injected with 10.9 millicuries of technetium 99m Cardiolite and subsequently rest SPECT Cardiolite nuclear imaging was obtained in the horizontal long, vertical long, and short axis views. The patient underwent pharmacologic (Regadenoson) evaluation. The patient was injected with 35.2 millicuries of technetium 99m Cardiolite and subsequently stress SPECT Cardiolit e nuclear imaging was obtained in the horizontal long, vertical long, and short axis views. No gated imaging done. The examination was stopped secondary to completion of protocol. Rest and stress SPECT Cardiolite nuclear imaging status post realignment, normalization, and attenuation correction demonstrate no fixed or reversible perfusion defects. No gated study done. Impression: 1. Pharmacologic (Regadenoson) evaluation 2. Peak pharmacologic ECG with no ischemic changes. 3. Occasional PVCs noted in recovery. 5. Rest and stress SPECT Cardiolite nuclear imaging demonstrate relative uniform tracer uptake and myocardial perfusion appearing within normal limits. 6. No gated study done. This note was generated with [employer]ent[employer] software. It may contain incorrect words, spelling, and punctuation that were not noted in checking the note before signing.
== END | disposition home or self-care (01) ==
LOC: CVS 06:46
PROVIDERS: PCP Family Medicine; Referring Provider Nurse Practitioner Family; Visit Provider Nurse Practitioner Family
DX: I47.10 Supraventricular tachycardia, unspecified (principal); I49.3 Ventricular premature depolarization; R94.31 Abnormal electrocardiogram [ECG] [EKG]; E78.2 Mixed hyperlipidemia; Z98.890 Other specified postprocedural states
CPT/HCPCS: 78452; 93017; A9500; A4216; J2785

== ENCOUNTER → 2025-03-14 | Outpatient (CLI) | payer MEDICARE, SELFPAY | END | disposition home or self-care (01) | LOC: PSN 11:54 | PROVIDERS: PCP Family Medicine; Referring Provider Nurse Practitioner Family; Visit Provider Nurse Practitioner Family | DX: I47.10 Supraventricular tachycardia, unspecified (principal); I49.3 Ventricular premature depolarization; R00.2 Palpitations | CPT/HCPCS: 93225; 93226 ==